=== PATIENT | male | born 1955 | race Caucasian/White ===

== ENCOUNTER 2023-04-19 11:27 | Outpatient (OUT) | payer MEDICARE, SELFPAY ==
[2023-04-19 11:57] LABS: Basophils Percent Auto 0.5 % (0.2-2.0); Eosinophils Absolute Auto 0.2 10^3/uL (0.0-0.7); Hematocrit 42.5 % (42.0-54.0); Hemoglobin 14.2 g/dL (14.0-18.0); Immature Granulocytes Abs Auto 0.02 10^3/uL (0.00-0.03); Immature Granulocytes Pct Auto 0.4 % (0.0-0.5); Lymphocytes Absolute Auto 1.9 10^3/uL (1.2-3.8); Lymphocytes Percent Auto 33.3 % (20.5-60.0); Mean Corpuscular HGB Conc 33.4 g/dL (29.9-35.2); Mean Corpuscular Hemoglobin 30.7 pg (25.9-34.0); Monocytes Absolute Auto 0.6 10^3/uL (0.3-0.8); Monocytes Percent Auto 9.6 % (1.7-12.0); Neutrophils Percent Auto 52.2 % (43.0-75.0); Platelet Count 231 10^3/uL (150-450); Red Blood Count 4.62 10^6/uL (4.70-6.10); Red Cell Distribution Width 12.4 % (11.0-15.0); White Blood Count 5.7 10^3/uL (4.0-11.0)
[2023-04-19 14:14] LABS: Prostate Specific Antigen Scrn 2.32 ng/mL (<=4.00)
[2023-04-19 14:36] LABS: Anion Gap 11.2; BUN Creatinine Ratio 24.4; Calcium 8.9 mg/dL (8.5-10.1); Carbon Dioxide 28.2 mmol/L (21.0-32.0); Chloride 105 mmol/L (98-107); Chol HDL Ratio 4.4; Cholesterol 235 mg/dL (<=200); Estimated GFR (African America >60 (>=60); Estimated GFR (Non-African Ame >60 (>=60); Glucose 101 mg/dL (74-106); HDL Cholesterol 54 mg/dL (40-60); Potassium 4.4 mmol/L (3.5-5.1); Sodium 140 mmol/L (136-145); Triglycerides 141 mg/dL (<=150); VLDL CHOLESTEROL 28.2 mg/dL
== END 2023-04-19 11:28 | disposition home or self-care (01) ==
LOC: LAB 11:31
PROVIDERS: PCP Internal Medicine; Visit Provider Internal Medicine
DX: Z00.00 Encounter for general adult medical examination without abnormal findings (principal); E78.01 Familial hypercholesterolemia; I10 Essential (primary) hypertension; Z12.5 Encounter for screening for malignant neoplasm of prostate; Z79.899 Other long term (current) drug therapy
CPT/HCPCS: 36415; 80048; 80061; 85025; G0103

== ENCOUNTER 2024-05-03 07:05 | Outpatient (OUT) | payer MEDICARE, SELFPAY ==
[2024-05-03 07:23] LABS: Basophils Absolute Auto 0.1 10^3/uL (0.0-0.1); Basophils Percent Auto 0.8 % (0.2-2.0); Eosinophils Absolute Auto 0.4 10^3/uL (0.0-0.7); Eosinophils Percent Auto 6.2 % (0.9-7.0); Hematocrit 42.6 % (42.0-54.0); Hemoglobin 14.3 g/dL (14.0-18.0); Immature Granulocytes Abs Auto 0.02 10^3/uL (0.00-0.03); Immature Granulocytes Pct Auto 0.3 % (0.0-0.5); Lymphocytes Absolute Auto 2.2 10^3/uL (1.2-3.8); Lymphocytes Percent Auto 35.9 % (20.5-60.0); Mean Corpuscular HGB Conc 33.6 g/dL (29.9-35.2); Mean Corpuscular Hemoglobin 31.3 pg (25.9-34.0); Mean Corpuscular Volume 93.2 fL (80.0-94.0); Mean Platelet Volume 9.2 fL (9.5-13.5); Monocytes Absolute Auto 0.5 10^3/uL (0.3-0.8); Monocytes Percent Auto 8.5 % (1.7-12.0); Neutrophils Percent Auto 48.3 % (43.0-75.0); Platelet Count 247 10^3/uL (150-450); Red Blood Count 4.57 10^6/uL (4.70-6.10); Red Cell Distribution Width 12.2 % (11.0-15.0); White Blood Count 6.2 10^3/uL (4.0-11.0)
[2024-05-03 08:04] LABS: Alanine Aminotransferase 43 U/L (16-63); Albumin Level 3.4 g/dL (3.4-5.0); Alkaline Phosphatase 75 U/L (46-116); Anion Gap 12.9; Aspartate Amino Transferase 22 U/L (15-37); BUN Creatinine Ratio 26.1; Calcium 8.7 mg/dL (8.5-10.1); Carbon Dioxide 26.8 mmol/L (21.0-32.0); Chloride 105 mmol/L (98-107); Chol HDL Ratio 3.3; Cholesterol 174 mg/dL (<=200); Estimated GFR (African America >60 (>=60); Estimated GFR (Non-African Ame >60 (>=60); Globulin 3.4 g/dL; Glucose 103 mg/dL (74-106); HDL Cholesterol 53 mg/dL (40-60); LDL Cholesterol Calculated 106.6 mg/dL; Potassium 4.7 mmol/L (3.5-5.1); Sodium 140 mmol/L (136-145); Total Protein 6.8 g/dL (6.4-8.2); Triglycerides 72 mg/dL (<=150); VLDL CHOLESTEROL 14.4 mg/dL
[2024-05-03 08:13] LABS: Prostate Specific Antigen Scrn 0.75 ng/mL (<=4.00)
== END 2024-05-03 07:06 | disposition home or self-care (01) ==
LOC: LAB 07:05
PROVIDERS: PCP Internal Medicine; Visit Provider Internal Medicine
DX: E78.00 Pure hypercholesterolemia, unspecified (principal); I10 Essential (primary) hypertension; Z12.5 Encounter for screening for malignant neoplasm of prostate
CPT/HCPCS: 36415; 80053; 80061; 85025; G0103

== ENCOUNTER 2025-07-07 15:29 | Outpatient (OUT) | payer MEDICARE, SELFPAY ==
--- NOTE | 2025-07-07 15:40 | XR_ITS ---
[place] [address] Patient Name: RE GOEL MRN: [id number] date: 1955 Sex: M Assigned Patient Location: [facility] Current Patient Location: [facility] Accession/Order Number: [id number] Exam Date: 07/07/2025 16:10 Report Date: 07/07/2025 22:08 At the request of: SELENA TREJO DO Procedure: XR lumbar spine 2-3V 2 views Lumbar Spine HISTORY: Low back pain for 3 weeks. COMPARISON: None POSTSURGICAL CHANGES: None BONY ALIGNMENT: Straightening of lumbar lordosis mild scoliosis HYPERMOBILITY:No bending imaging. LISTHESIS:Multilevel mild degenerative listhesis FRACTURE: None DEGENERATIVE CHANGES: Extensive multilevel spondylosis and facet degeneration SOFT TISSUES: Unremarkable BONY MINERALIZATION:Adequate XR/XR lumbar spine 2-3V IMPRESSION: Extensive multilevel degeneration. Mild scoliosis. No acute fracture. Impression dictated by: Sushil Cardenas M.D. 07/07/2025 10:08 PM Dictation Location: [employer] Electronically authenticated by: [id number] Y Date: 07/07/2025 22:08
== END 2025-07-07 15:30 | disposition home or self-care (01) ==
LOC: LAB 15:32 → RAD 15:35
PROVIDERS: PCP Internal Medicine; Visit Provider Internal Medicine
DX: M54.50 Low back pain, unspecified (principal); M47.816 Spondylosis without myelopathy or radiculopathy, lumbar region; M51.369 Other intervertebral disc degeneration, lumbar region without mention of lumbar back pain or lower extremity pain
CPT/HCPCS: 72100

== ENCOUNTER 2025-08-07 12:27 | Outpatient (OUT) | payer MEDICARE, SELFPAY ==
--- OUTSIDE RECORDS SUMMARY | 2025-08-04 11:59 | XMS_ITS | Continuity of Care Document ---
Author Organization [facility] Address [address] [place] [address] Phone Care Team Providers Care Early Childhood Name Role Phone ReymundoOvidio Primary Care Provider [phone] Ovidio Dwyer DO Attending Provider [phone] Care Teams Patient Care Team Team Status: Active Member Role/Relationship Status Dates Ovidio Dwyer DO Primary Care Provider Active Visit Care Team Team Status: Inactive Member Role/Relationship Status Dates Ovidio Dwyer DO Primary Care Provider Active Start: July 07, 2025 End: July 07lizzie Dwyer DOAttmiriam ProviderActiveStart: July 07, 2025 End: July 07, 2025 Patient Care Team Team Status: Inactive Member Role/Relationship Status Dates Ovidio Dwyer DO Primary Care Provider Active Start: August 04, 2025 End: August 04Adriana Lui ProviderActiveStart: August 04, 2025 End: August 04, 2025 Chief Complaint and Reason for Visit Chief Complaint Admit Date back pain July 07, 2025 2:07pm discuss getting MRI August 04, 2025 2 :29pm Reason for Visit Admit Date Low back pain July 07, 2025 2:07pm Lumbar spondylosis July 07, 2025 2:07pm Low back pain August 04, 2025 2 :29pm Lumbosacral spondylosis with radiculopat hy August 04, 2025 2:29pm Allergies, Adverse Reactions, Alerts Allergen Type Severity Reaction Last Updated Verified Status No Known Allergies Allergy Unknown August 04, 2025 2:39pmYesActive Social History Smoking Status Unknown if ever smoked Observation Status Observation Response Date of Response Legal Sex Male (finding) Sex Assigned At [facility] 1954 Family History Relationship Condition Age at Onset Recorded Date/T dominick father Family history of lung cancer Unknown Malignant neoplasmUnknownfamily memberMalignant neoplasmUnknownmotherMalignant neoplasm of breastUnknownMalignant neoplasmUnknown Problems Active Problems Problem Diagnosis/Recorded Date Onset Date Status C omments Lumbosacral spondylosis with radiculopathy August 04, 2025 3:19pm Unknown Active Medicare annual wellness visit, subsequentJuly 2024 7:22amUnknownActive Screening PSA (prostate specific antigen)May 03, 2025 7:23amUnknownActive 0.749 - 8/2024Low back painSeptember 2024 3:09pmUnknownActive HypercholesterolemiaJuly 2023 7:14amUnknownActiveOverweightJuly 2023 11:52amUnknownActiveHypertensionJuly 2023 7:14amUnknownActiveLumbar spondylosisJuly 2023 7:14amUnknownActive Medications Medication Status Dose Units Route Directions Qty Days Refills S tart Date Stop Date End Date Reason(s) Instructions Adherence Ramipril 5 mg capsule Discontinued 0 .ROUTE.NAWGEEQ238Ifol 2023 9:36amDecember 2023 9:57pmTAKE 1 CAPSULE BY MOUTH EVERY DAY FOR 90 DAYSAtorvastatin 40 mg tabletDiscontinued0.ROUTE .SZSMLGL619Xcjuqm 2023 11:49amJuly 2024 8:28amTAKE 1 TABLET BY MOUTH ONCE A DAY IN THE EVENING X30 DAYS 90Lisinopril 5 mg aaykljVutrqzzxqrky5YYXU Ibcuf22992Omycrxoe 2023 1:00amDecember 2023 4:18pmLisinopril 5 mg aasxpwFlqrdn0YDPPUflam65045Mhykpqte 2023 4:18pmComplies with drug therapy Atorvastatin 40 mg tabletActive0.ROUTE.YCIXXDE784Hqup 2024 8:28amTAKE 1 TABLET BY MOUTH ONCE A DAY IN THE EVENING X30 DAYS 90Complies with drug therapy Baclofen 20 mg xsrcwkGpblcjsypscb60RYGYXlenj at hxytoqs80921Ikxslzlxq 2024 12:00amOctober 2024 2:47pmPrednisone 20 mg kuaxcxHxnwfx34YJWFYy Piqloije91 60July 07, 2025 12:00am1 tab tid w/ food x 2 days, then bid w/ food x 2 days, then qd w/ food x 2 daysComplies with drug therapyAtorvastatin 40 mg zgiafbBiqsyynkqokb88FLMIRyyqb eveningJuly 2023 12:00amAugust 2023 11:49amRamipril 5 mg gratncvJpruvqiguabg5XOHFZxwhnKuxt 2023 12:00amJuly 2023 9:36am Immunizations Immunization Event Date Not Given Reason Dose Number Retort Load Expediter Lot Number Reason(s) Given Vaccine Information Statement (VIS) Detail Administration Location COVID-19 mRNA-1273 (Moderna) December 02, 2020 COVID-19 mRNA-1273 (Moderna)December 29OVID-19 mRNA-1273 (Moderna)August 03Tap, unspecifiedSept2016 Vital Signs Vital Reading Result Reference Range Collection Date/Time Height 72 [in_i] July 07, 2025 2:20qmLetjbv86.79 kgpt2024 2:40pmHeart Rate62 /iml19-604OriflssqnJuly 07, 2025 2:40pmRespiratory rate12 /vgn70-32QbuxsvnggJuly 07, 2025 2:40pmBP Ecwvzptp270 mm[Hg]100-140pt2024 2:40pmBP Gnfaoxrkf11 mm[Hg]60-100pt2024 2:40pmBMI (Body Mass Index)27.4 kg/s3UpchtgmyfJuly 07, 2025 2:87elRybvvh24 [in_i]August 04, 2025 2:41pmWeight 91.79 kgOct2024 2:41pmBody Uogxoxdqujp97.2 [degF]97.6-99.0Octblue[facility] 2024 2:41pmHeart Rate68 /huj59-045Qheosyb 28th, 2025 2:41pmOxygen saturation by Pulse iymhxkjx93 %95-100Octbluegrass community hospital 2024 2:41pmBP Qtmcmuhx661 mm[Hg]100-140October 2024 2:41pmBP Gsjwbhabg60 mm[Hg]60-100October 2024 2:41pmBMI (Body Mass Index)27.4 kg/v6Omzsmmt 2024 2:41pm Advance Directives Advance Directive Response Recorded Date/ Time Advance Directives No May 02 11:28am Insurance Providers Guarantor Steven Gill Address [address] [address]Contact Info.Home Phone: Payer Group Member ID Coverage Type Subscriber Relationship to Subscriber Effective Date Expiration Date Medicare [id number] Weber Id: [id number] [address] [id number] Home Phone: selfAARP Medicare Advantage PFFS [id number] Weber Id: [id number] [id number] Home Phone: self Encounters Encounter Location(s) Arrival/Admit Date Discharge/Departure Date Discharge/Departure Disposition Provider(s) Departed Physician/ Provider Office Visit -[facility] July 07, 2025 2:07pm July 07, 2025 3:19pm Discharged to home care or self care (routine discharge) Ovidio Dwyer DO Departed Physician/ Provider Office Visit -[facility] August 04, 2025 2:29pm August 04, 2025 3:57pm Discharged to home care or self care (routine discharge) Ovidio Dwyer DO Recent Diagnosis Onset Date Admit Date Low back pain Unknown July 07, 2025 2:07pm Lumbar spondylosis Unknown June 2:07pm Low back pain Unknown August 04 2:29pm Lumbosacral spondylosis with radiculopathy Unkno wn August 04, 2025 2:29pm Assessments Diagnosis Onset Date Resolution Status Admit Date Low back pain acuteSeptember 2024 2:07pmLumbar spondylosisacuteSeptember 2024 2:07pmLow back painacuteOctober 2024 2:29pmLumbosacral spondylosis with radiculopathyacuteOctober 2024 2:29pm Plan of Treatment Author Ovidio [facility] HospitalAuthoredSeptember 2024 3:16pmI have instructed this patient to avoid bending, twisting or lifting. I have also instructed on use of intermittent heat and ice as needed. They may schedule a massage or gentle manipulation. I instructed them on the safe use of Tylenol, Lidocaine and stretching exercises. I informed them of alternative modes of treatment for severe pain, which may include referral to physical therapy or pain management. Instructed on ice/heat and Tylenol Add Prednisone over the next 6 days. Add Muscle relaxant at HS Reviewed low back ROM and stretching exercises (handouts give to patient) Refer for XR and PT No improvement, MRI lumbar spine Author Ovidio [facility] HospitalAut[facility] 2024 8:21amInstructed on ice/heat and Tylenol Add Prednisone over the next 6 days. Add Muscle relaxant at HS Reviewed low back ROM and stretching exercises (handouts give to patient) Refer for XR and PT No improvement, MRI lumbar spine I have instructed this patient to avoid bending, twisting or lifting. I have also instructed on use of intermittent heat and ice as needed. They may schedule a massage or gentle manipulation. I instructed them on the safe use of Tylenol, Lidocaine and stretching exercises. I informed them of alternative modes of treatment for severe pain, which may include referral to physical therapy or pain management. Future Tests Future scheduled test information is unavailable Pending Tests Test Name Ordered Date Scheduled Date XR lumbar spine 2-3V* July 07, 2025 3:08p m MR lumbar spine wo conOctober 2024 3:17pm Future Visits Future appointment information is unavailable Future Procedures Future procedure information is unavailable Future Medications Future medication information is unavailable Patient Instructions Instruction Admit Date Low back pain in adults July 07, 2025 2:07pm
--- OUTSIDE RECORDS SUMMARY | 2025-08-07 12:34 | XMS_ITS | Clinical Summary ---
Author Organization [facility] Address [address] [place], [place] [address] Care Team Providers Care Analytics Analyst Name Role Phone Zayda Harper Primary Care Provider [phone] Allergies No known active allergies Medications MedicationSigDispense QuantityRefillsLast FilledStart DateEnd DateStatus ramipril (ALTACE) 5 mg ORAL Cap Take one(1) tablet daily.ctive Active Problems ProblemNoted DateDiagnosed DateEssential hypertension, benignOther forms of migraine Overview (03/21/2007): vestibular Diverticulosis of colon (without mention of hemorrhage) Overview (03/21/2007): diverticulitis Other and unspecified disc disorder of lumbar region Overview (03/21/2007): low back pain Family History Medical HistoryRelationCommentsCancerFatherlung cancer, brain tumor?Relation StatusCommentsFather Social History Tobacco UseTypesPacks/DayYears UsedDateSmoking Tobacco: FormerCigarettes0.510 10/08/1979 - 10/08/1989Alcohol UseStandard Drinks/WeekCommentsYes0 (1 standard drink = 0.6 oz pure alcohol)6 per yearSex and Gender InformationValueDate RecordedSex Assigned at BirthNot on fileLegal PwfUngl31/02/2012 8:07 AM EST Gender IdentityNot on fileSexual OrientationNot on file Last Filed Vital Signs Vital SignReadingTime TakenCommentsBlood Bjfsntzj265/12831 6:54 AM EDT Shpqy3347 6:54 AM XDUPgbjjnxrurl99.7 ??C (96.3 ??F)04/04/2007 6:54 AM EDTRespiratory Tuec985604/04/2007 6:54 AM EDTOxygen Oqpmlrpncf92%04/04/2007 6:54 AM EDTInhaled Oxygen Concentration--Oxhdwg83.6 kg (195 lb 6.4 oz)05/16/2007 2:34 PM MPJAyelkt713.4 cm (6' 1 )05/16/2007 2:34 PM EDTBody Mass Index25.78005/16/2007 2:34 PM EDT Plan of Treatment Health MaintenanceDue DateLast DoneCommentsAbdominal Aortic Aneurysm Screening 4Anxiety Qecrtsefl29/16/1972Depression Yqjecpbwu55/16/1972Hepatitis C Ndbfyuylg61/16/1972DTaP,Tdap,Td Vaccine (1 - Tdap)1973Lipid Screening 1989CT Hgtrfvbjqbdc78/16/1999Cologuard (FIT-DNA)1999Colonoscopy 1999Colorectal Cancer Hmtwbfvvf64/16/1999Fecal Occult Blood1999 Bisbbhxuvtsgt89/16/1999Pneumococcal Vaccine: 50+ (1 of 1 - PCV)2004 Shingrix Vaccine (1 of 2)2004Diabetes Pngoscmnk78, 04/01/2007, 03/21/2007dvance Directive Vkwgnpeflu10/01/2025ovid-19 Vaccine ( - season)2025Influenza Vaccine (#1)2025RSV Vaccine (1 - 1- dose 75+ series)2029 Procedures Procedure NamePriorityDate/TimeAssociated DiagnosisCommentsBASIC METABOLIC PANEL Pwjzcch8704/02/2007 10:53 PM EDT from Last 3 Months or Most Recently Relevant to Health Maintenance Results * (ABNORMAL) BASIC METABOLIC PNL (04/02/2007 10:53 PM EDT)ComponentValueRef RangeTest MethodAnalysis TimePerformed AtPathologist KxjeeciyiZolyzmt875(H)65 - 100 mg/dLCLEVELAND CLINIC MAIN LABORATORYBUN5(L)10 - 25 mg/dLMER[facility]ALTH [facility] LABORATORYCreatinine0.80.7 - 1.4 mg/dLMERCY HEALTH WEST [facility] EEVBTJEQPJKyyjmm698740 - 146 mmol/LCPARKVIEW HEALTH LABORATORYPotassium 4.83.5 - 5.0 mmol/LCOHIOHEALTH MAIN BQUIAMZUPQXyuookwy11475 - 110 mmol/L [facility] CKAGHDXDUPYV02443 - 32 mmol/LCPARKVIEW HEALTH LABORATORYAnion Gap60 - 15 mmol/LCPARKVIEW HEALTH LABORATORYCalcium8.88.5 - 10.5 mg/dLMERCY HEALTH WEST [facility]ITAL LABORATORYSpecimen (Source)Anatomical Location / LateralityCollection Method / VolumeCollection TimeReceived Time Blood specimen (specimen)BLOOD SPECIMEN / Azutifs1004/02/2007 10:53 PM EDT Narrative Authorizing ProviderResult TypeResult StatusJon D VogelLABORATORYFinal Result Performing OrganizationAddressCity/State/ZIP CodePhone Number [facility] [address] [place] [address] from Last 3 Months or Most Recently Relevant to Health Maintenance Insurance * Guarantor: TAYLOR GOEL TypeRelation to PatientDate of BirthPhone Billing AddressPersonal/DonctuVzzm1955 [phone] (Work) [address] [id number] MemberSubscriberPlan / Payer (Effective 2019-Present)Name:Steven Goel Relation to Subscriber:SpouseName:TIFFANIE GOEL Date of :1959 (Home) [phone] (Work) Address: [address] [id number] Payer ID:Not on file Group ID:[id number] Type:PPO Address: [address] [place] [address] * Guarantor: TAYLOR GOEL TypeRelation to PatientDate of BirthPhone Billing AddressSelf [id number] 1955 [phone] (Work) [address] [place] [phone] Care Teams Team MemberRelationshipSpecialtyStart DateEnd Date Alt-Riddhi, Zayda Hdz [address] [place] [address] PCP - General01/08/07
--- OUTSIDE RECORDS SUMMARY | 2025-08-07 12:34 | XMS_ITS | Clinical Summary ---
Author Organization [facility] Address [address], [address] [place] [address] Care Team Providers Care Lay Out Inspector Name Role Phone Ovidio Dwyer DO Primary Care Provider [phone] Allergies No known active allergies Medications MedicationSigDispense QuantityRefillsLast FilledStart DateEnd DateStatus therapeutic multivitamin-minerals (THERAGRAN-M) tablet Take 1 tablet by mouth daily.Active [place]-3 Fatty Acids (FISH OIL) 1000 MG CAPS Take 1,000 mg by mouth daily.Active ramipril (ALTACE) 5 MG tablet Take 5 mg by mouth daily.Active Misc Natural Products (OSTEO BI-FLEX ADV DOUBLE ST) TABS Take by mouth. 1500mg with 400iu vitamin D. 100mg 5 loxinActive Active Problems ProblemNoted DateDiagnosed DateAbdominal pain04/08/2013bnormal CT of the dubudnl5604/08/2013 Family History Medical HistoryRelationNameCommentsLung CancerFatherEmphysemaMotherRelationName StatusCommentsFatherDeceasedMotherAlive Social History Tobacco UseTypesPacks/DayYears UsedDateSmoking Tobacco: FormerSmokeless Tobacco: Never Comments:Pt smoked One pack per week at his most. Alcohol UseStandard Drinks/WeekCommentsYes0 (1 standard drink = 0.6 oz pure alcohol)OccasionallySex and Gender InformationValueDate RecordedSex Assigned at BirthNot on fileLegal UczXoxx2811/17/2012 1:18 PM ESTGender IdentityNot on file Sexual OrientationNot on file Last Filed Vital Signs Vital SignReadingTime TakenCommentsBlood Kggqjfuh575/8409 3:00 PM EDT Luiwe0454 3:00 PM NKMWdwarffygdh27.4 ??C (97.6 ??F)07/03/2013 3:00 PM EDTRespiratory Uuyu220007/03/2013 3:00 PM EDTOxygen Kxcnuslcda01%04/22/2013 8:41 AM EDTInhaled Oxygen Concentration--Qqsyem78 kg (194 lb)07/03/2013 3:00 PM EDT Occzwi872.9 cm (6')07/03/2013 3:00 PM EDTBody Mass Index26.31007/03/2013 3:00 PM EDT Plan of Treatment Not on file Care Teams Team MemberRelationshipSpecialtyStart DateEnd Date Ovidio Dwyer DO [facility] - General04/08/13
--- OUTSIDE RECORDS SUMMARY | 2025-08-07 12:34 | XMS_ITS | CCD ---
Author Organization [facility] Care Team Providers Care Plating Tank Operator Name Role Phone REYMUNDO, DR WALTERS Primary Care Unavailable REQUEST, DR EM LISTED Attending Unavaila ble REQUEST, DR EM LISTED Admitting Unavaila ble REQUEST, DR EM LISTED Consulting Unavaila ble ROSS, TOBIAS Attending Unavailable ROSS, TOBIAS Admitting Unavailable ROSS, TOBIAS Consulting Unavailable BALL, DR WALTERS Primary Care Unavailable HIGHLANDER, THERESA Attending Unavailable HIGHLANDER, THERESA Admitting Unavailable ZIEBER, DR SINGH Olivia Consulting Unavailable BALL, DR WALTERS Primary Care Unavailable HIGHLANDER, THERESA Consulting Unavailable BALL, DR WALTERS Consulting Unavailable BALL, DR WALTERS Attending Unavailable BALL, DR WALTERS Admitting Unavailable BALL, DR WALTERS Primary Care Unavailable Ovidio Dwyer Unavailable Brown VALENZUELA, Marcos Wills Attending Unavailab le Reymundo YONUG, Ovidio [place] Primary [facility] Unavail able Rosmery VALENZUELA, Carter Bailey Attending Unavailable Melania LEASING REPRESENTATIVE-MACHINE FASTENER, Arely Wheeler Attending U navailable Reymundo YOUNG, Ovidio [place] Primary Care Unavail able Tony VALENZUELA, Taurus Paulino Attending Unavailable Unavailable Primary Care Provider Unavailabl MARISOL Beasley Attending Unavailable MARISOL AL Attending Unavailable MARISOL AL Attending Unavailable MARISOL AL Attending Unavailable Ovidio Dwyer DO Primary Care Provider Ovidio Dwyer DO Attending Provider Ovidio Dwyer DO Primary Care Provider Ovidio Dwyer DO Attending Provider Allergies Allergy ClassificationReported Allergen(s)Allergy TypeDate of OnsetReaction(s) Facility (3 sources)patient allergy list reviewed by nurse or physiciaPropensity to adverse wvriscdkn35-20-2226Jcargvu:[employer] Other (3 sources)Allergies ReconciledPropensity to adverse reactionsSouthlake Center For Mental HealthRetewi Other (1 source)No Known Medication Allergies; Translations: [No Known Medication Allergies]Propensity to adverse reactions to drug (disorder)[facility] Repository Medications Current Medications MedicationDrug Class(es)DatesSig (Normalized)Sig (Original)atorvastatin 40 mg oral tablet (20 sources)HMG-CoA Reductase InhibitorStart: 62-13-1831wsqviluvqodm (Lipitor) 40 MG tablet 11/08/2024 ActiveStart: 05-11-2024 End: 67-61-3670blbk 1 tablet by mouth once daily in the eveningAtorvastatin 40 mg tablet Active 0 .ROUTE .COMPLEX 90 April 20, 2025 8:28am TAKE 1 TABLET BY MOUTH ONCE A DAY IN THE EVENING X30 DAYS 90 Complies with drug therapyStart: 04-14-2024 End: 07-95-0343imxp 1 tablet by mouth once daily in the eveningAtorvastatin 40 mg tablet Discontinued 40 MG PO Every evening April 14, 2024 12:00am May 11, 2024 11:49amtake 1 tablet by mouth once daily in the eveningAtorvastatin Calcium 40 MG 1 tablet Orally Once a day, in evening for 30 days Activelisinopril 5 mg oral tablet (17 sources)Angiotensin Converting Enzyme InhibitorStart: 09-23-2024 End: 36-01-5339cgyb 1 tablet by mouth once dailyLisinopril 5 mg tablet Active 5 MG PO Daily 90 90 September 24, 2024 4:18pm Complies with drug therapy predniSONE 20 mg oral tablet (2 sources)Start: 91-84-9577Cbegphbaye 20 mg tablet Active 20 MG PO As Directed 12 6 0 July 07, 2025 12:00am 1 tab tid w/ food x 2 days, then bid w/ food x 2 days, then qd w/ food x 2 days Complies with drug therapy Completed/Discontinued Medications MedicationDrug Class(es)DatesSig (Normalized)Sig (Original)baclofen 20 mg oral tablet (2 sources)gamma-Aminobutyric Acid-ergic AgonistStart: 07-07-2025 End: 56-45-3733nipx 1 tablet by mouth once daily at bedtimeBaclofen 20 mg tablet Discontinued 20 MG PO Daily at bedtime 21 0 July 07, 2025 12:00am Oc tober 2024 2:47pmramipril 5 mg oral capsule (13 sources)Angiotensin Converting Enzyme InhibitorStart: 04-14-2024 End: 96-41-4624nyzx 1 capsule by mouth once dailyRamipril 5 mg capsule Discontinued 0 .ROUTE .COMPLEX 90 3 April 14, 2024 9:36am September 23, 2024 9:57pm TAKE 1 CAPSULE BY MOUTH EVERY DAY FOR 90 DAYSStart: 04-14-2024 End: 88-52-9569dhel 1 capsule by mouth once dailyRamipril 5 mg capsule Discontinued 5 MG PO Daily April 14, 2024 12:00am April 14, 2024 9:36amtake 1 capsule by mouth every twenty-four hoursRamipril 5 MG 1 capsule Orally Once a day for 90 days Active Problems Active Problems Problem ClassificationProblemDateDocumented DateEpisodic/ChronicAcquired foot deformities (3 sources)Acquired hallux rigidus; Translations: [Hallux rigidus, left foot] ChronicDisorders of lipid metabolism (20 sources)Pure hypercholesterolemia; Translations: [Familial hypercholesterolemia]Onset: 44-67-1376JfkkgevNqxueehnu hypertension (18 sources)Essential hypertension; Translations: [Essential (primary) hypertension]ChronicHyperplasia of prostate (14 sources)Lower urinary tract symptoms due to benign prostatic hypertrophy; Translations: [Benign prostatic hyperplasia with lower urinary tract symptoms] Onset: 60-19-9813GooplibGhtyt acquired deformities (5 sources)Joint contracture of the ankle and/or foot; Translations: [Contracture, right ankle]ChronicOther aftercare (1 source)Other mica parts sprayer (current) drug therapyEpisodicOther and unspecified benign neoplasm (2 sources)Melanocytic nevus of trunk; Translations: [Melanocytic nevi of trunk] 24-25-5380UkrxcbgoApiil and unspecified benign neoplasm (2 sources)Dermatofibroma of left lower limb; Translations: [Other benign neoplasm of skin of left lower limb,including hip]47-64-4904YstbkaixKiinb connective tissue disease (5 sources)Calcaneal spur; Translations: [Calcaneal spur, right foot]Episodic Other connective tissue disease (6 sources)Achilles bursitis; Translations: [Achilles tendinitis, left leg] Resolved: 97-69-1876KpitjzewMslyf connective tissue disease (3 sources)Calcaneal spur of right foot; Translations: [Calcaneal spur, right foot]EpisodicOther connective tissue disease (3 sources)Pain in right foot; Translations: [Pain in right foot]EpisodicOther ear and sense organ disorders (8 sources)Sensorineural hearing loss; Translations: [Unspecified sensorineural hearing loss]ChronicOther ear and sense organ disorders (3 sources)Unilateral sensory hearing loss; Translations: [Sensorineural hearing loss, unilateral]Onset: 12-20-6602JjvtvclXdzug ear and sense organ disorders (3 sources)Conductive hearing loss; Translations: [Unspecified conductive hearing loss]Onset: 29-19-2585WgrugxpExgpr non-traumatic joint disorders (3 sources)Arthralgia of the ankle and/or foot; Translations: [Pain in right ankle and joints of right foot]EpisodicOther nutritional; endocrine; and metabolic disorders (9 sources)Overweight; Translations: [Overweight]01-87-3586DdxcdlpdGywjb nutritional; endocrine; and metabolic disorders (1 source)Overweight; Translations: [Overweight]94-79-4493BjzbtjnhWngdv screening for suspected conditions (not mental disorders or infectious disease) (14 sources)Encounter for screening for malignant neoplasm of prostate; Translations: [Patient encounter status]Onset: 40-66-8604OcixorthNwlxytb on above:0.749 - 05/2025Other skin disorders (2 sources)Actinic keratosis; Translations: [Actinic keratosis]12-08-2024 EpisodicOther skin disorders (2 sources)Seborrheic keratosis; Translations: [Other seborrheic keratosis] 01-94-7343VpqscwczDppgu upper respiratory infections (6 sources)Acute maxillary sinusitis; Translations: [Acute maxillary sinusitis, unspecified]Onset: 98-87-1751RelqzgohBkivsnqr codes; unclassified (8 sources)Pain; Translations: [Pain, unspecified]46-58-0396FbdbqdioZruskkigheh; intervertebral disc disorders; other back problems (20 sources)Lumbar spondylosis; Translations: [Spondylosis without myelopathy or radiculopathy, lumbar region]ChronicSpondylosis; intervertebral disc disorders; other back problems (5 sources)Low back pain; Translations: [Low back pain]14-77-4113Wlffgcsu Substance-related disorders (3 sources)Tobacco user; Translations: [Nicotine dependence, cigarettes, in remission]ChronicUnclassified (3 sources)Exposure to acute respiratory syndrome coronavirus 2; Translations: [Contact with and (suspected) exposure to COVID-19]Viral infection (8 sources)Verruca vulgaris; Translations: [Other viral warts]51-14-4573Uqsswdni Past or Other Problems Problem ClassificationProblemDateDocumented DateEpisodic/ChronicAcute bronchitis (3 sources)Acute bronchitis; Translations: [Acute bronchitis, unspecified]Onset: 77-85-5538KnmyuhvlRaksfxpkc infection; unspecified site (3 sources)Bacterial infectious disease; Translations: [Bacterial infection, unspecified, in conditions classified elsewhere and of unspecified site]Onset: 08-71-7722RvrcdguhHsipbiyark associated with dizziness or vertigo (3 sources)Benign paroxysmal positional vertigo; Translations: [Benign paroxysmal positional vertigo]Onset: 25-32-7116LcqqyowoQxmijfoewrjwe and screening for infectious disease (4 sources)Encounter for immunization; Translations: [ENCOUNTER FOR IMMUNIZATION]Onset: 84-18-0393OgebcswfOcsgjwd and fatigue (3 sources)Malaise and fatigue; Translations: [Other malaise and fatigue]Onset: 26-93-6066JdxlhlmyKmgxd connective tissue disease (1 source)Pain in right foot; Translations: [PAIN IN RIGHT FOOT]Onset: 70-83-2020KvnpesxxDirrt gastrointestinal disorders (3 sources)Flatulence, eructation and gas pain; Translations: [Abdominal distension (gaseous)]Onset: 45-17-8876ZfytcvdjKmqry non-traumatic joint disorders (4 sources)Pain in right ankle and joints of right foot; Translations: [PAIN IN RIGHT ANKLE]Onset: 89-58-5332NktdcefaFmxqp nutritional; endocrine; and metabolic disorders (9 sources)Body mass index 25-29 - overweight; Translations: [Body mass index 29.0-29.9, adult]Onset: 39-33-4951ZjgtvuovEcdnqyxq codes; unclassified (3 sources)Postoperative state; Translations: [Other postprocedural status] Onset: 80-46-0071RhyxmgtsQmuxjkvmb and history of mental health and substance abuse codes (3 sources)History of tobacco use; Translations: [Personal history of tobacco use, presenting hazards to health]Onset: 10-37-0996WqgphnycFtbpvyg and strains (3 sources)Neck sprain; Translations: [Strain of muscle, fascia and tendon at neck level, initial encounter] Resolved: 67-20-8045Efovvkuo Results Test NameValueInterpretationReference RangeFacilityNo Panel Informationon [id number] HealthcareNo Panel Informationon [id number] HealthcareNo Panel Informationon 26-56-5858KFOZ HealthcareNo Panel Informationon 12-08-2024 [facility] HealthcareProvider Letteron [id number] Letter Ovidio Meléndez [address] [place] [address] Re: Steven Michelle Date of Visit: 06/04/2023 Dear Ovidio Dwyer, Attached you will find the office visit and/or procedure documentation for Steven Michelle. Let me know if you have any questions or concerns. Sincerely, Faith Richardson RN C C Providers: The following document(s) were included in the letter: June 04, 2023 07:28:00 EDT - (06/04/2023) Colonoscopy Procedure NoteNormal [facility] HospitalGastro[facility]ology Consultationon 06-04-2023 Gastroenterology ConsultationThis is a 68-year-old man who presented to the endoscopy unit for colorectal cancer screening. Patient gives pertinent history of segmental colectomy for a prior episode of diverticulitis. Denies any nausea, vomiting, odynophagia/dysphagia, early satiety, unintentional weight loss, hematemesis, melena or hematochezia. Regular bowel movements. Review of Systems Constitutional : No weight loss, fever, chills, weakness or fatigue. HEENT: Eyes: No visual loss, blurred vision, double vision or yellow sclerae. Ears, Nose, Throat: No hearing loss, sneezing, congestion, runny nose or sore throat. Skin: No rash or itching. Cardiovascular: No chest pain, chest pressure or chest discomfort. No palpitations or edema. Respiratory: No shortness of breath, cough or sputum. Neurological: No headache, dizziness, syncope, paralysis, ataxia, numbness or tingling in the extremities. No change in bowel or bladder control. Musculoskeletal : No muscle, back pain, joint pain or stiffness. Psychiatric: Cooperative, appropriate mood and affect. Physical Examination Patient is hemodynamically stable and afebrile. 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 Patient understood and consented for procedure. Electronically signed by Taurus Jimenez MD 06/04/23 07:25 [facility] CenterOperative Reporton [id number] ReportMissing Attachment [id number] Can be viewed in source system Missing Attachment [id number] Can be viewed in source system Missing Attachment [id number] Can be viewed in source system Missing Attachment [id number] Can be viewed in source system Missing Attachment [id number] Can be viewed in source system Missing Attachment [id number] Can be viewed in source system Missing Attachment [id number] Can be viewed in source system Missing Attachment [id number] Can be viewed in source system Missing Attachment [id number] Can be viewed in source system Missing Attachment [id number] Can be viewed in source system Missing Attachment [id number] Can be viewed in source system Missing Attachment [id number] Can be viewed in source system Missing Attachment [id number] Can be viewed in source system Missing Attachment [id number] Can be viewed in source system Missing Attachment [id number] Can be viewed in source system Missing Attachment [id number] Can be viewed in source system Missing Attachment [id number] Can be viewed in source system Missing Attachment [id number] Can be viewed in source system Patient: Steven Michelle Age: 68 years Sex: Male : 1955 Associated Diagnoses: Diverticula, colon; Internal hemorrhoids Author: Taurus Jimenez MD Pre-Procedure Procedure Date: 06/04/2023 . Procedure Type: Colonoscopy. Procedure provider: Performed by Taurus Jimenez MD. Current history and physical: Documented on chart, Allergies (1) Active Reaction No Known Medication Allergies None Documented , Medications (2) Active Scheduled: (0) Continuous: (1) Lactated Ringers 1,000 mL 1,000 mL, IV, 15 mL/hr PRN: (1) sodium chloride 0.9% Inj Soln 10 mL Flush 10 mL, IV Push, As Indicated . Family History: No family history items have been selected or recorded.. Social History: Social & Psychosocial Habits Alcohol 06/04/2023 Use: Current Type: Beer Frequency: 3-5 times per week Tobacco 06/04/2023 Use: Former smoker, quit more Type: Cigarettes . Procedure History: Colonoscopy ([id number]).. Problem History: All Problems Hyperlipidemia / 18509901 / Confirmed Hypertension / [id number] / Confirmed. Informed Consent: After discussing the rationale, risks and benefits, and alternatives to this procedure, the patient provided signed consent for the procedure. Indication: Age 50 years or over. Medications: (Selected) Inpatient Medications Ordered LR 1,000 mL: 15 mL/hr, IV Normal Saline Flush 0.9% injectable solution: 10 mL, IV Push, As Indicated, PRN: flush Prescriptions Prescribed GoLYTELY oral powder for reconstitution: See Instructions, Use as directed by office for colonoscopy prep., 1 EA, 0 Refill(s). ASA Classification: Class II. Monitoring: See anesthesia record. Procedure Location: Endo Suite. See anesthesia record for sedation given during procedure. Rectal exam was performed and was normal. The patient was positioned starting in the left lateral decubitus position. Endoscope type used was an adult-size, colonoscope. The endoscope was introduced through the anus. The scope was advanced to the cecum verified by visualization of the appendiceal orifice, verified by visualization of the ileocecal valve. No difficulties encountered during the procedure. The bowel was carefully examined as the scope was withdrawn 7 minutes after visualizing the cecum. Bowel prep quality was BBPS score of 6 The patient tolerated the procedure well. Findings Nonbleeding diverticulosis was noted from sigmoid-descending colon regions Healthy looking colocolonic anastomosis was noted in the rectosigmoid region Nonbleeding medium sized internal hemorrhoids were found on retroflexion. Images Procedure images: COLON_0001.jpg COLON_0002.jpg COLON_0003.jpg COLON_0004.jpg COLON_0005.jpg COLON_0006.jpg COLON_0007.jpg COLON_0008.jpg COLON_0009.jpg COLON_0010.jpg COLON_0011.jpg COLON_0012.jpg COLON_0013.jpg COLON_0014.jpg COLON_0015.jpg COLON_0016.jpg COLON_0017.jpg COLON_0018.jpg . Post-Procedure Complications encountered during the procedure were none. Impression and Plan Colonoscopy: Diagnosis: Diverticula, colon (PMP17-PV K57.30, Discharge, Medical), Internal hemorrhoids (SGC60-LFJ18.8, Discharge, Medical (more content not included)... [facility] CenterComment on above:Order Comment: Missing Attachment [id number] Can be viewed in source system Missing Attachment [id number] Can be viewed in source system Missing Attachment [id number] Can be viewed in source system Missing Attachment [id number] Can be viewed in source system Missing Attachment [id number] Can be viewed in source system Missing Attachment [id number] Can be viewed in source system Missing Attachment [id number] Can be viewed in source system Missing Attachment [id number] Can be viewed in source system Missing Attachment [id number] Can be viewed in source system Missing Attachment [id number] Can be viewed in source system Missing Attachment [id number] Can be viewed in source system Missing Attachment [id number] Can be viewed in source system Missing Attachment [id number] Can be viewed in source system Miss ing Attachment [id number] Can be viewed in source system Missing Attachment [id number] Can be viewed in source system Missing Attachment [id number] Can be viewed in source system Missing Attachment [id number] Can be viewed in source system Missing Attachment [id number] Can be viewed in source systemBAPTIST HEALTH LA GRANGE AUTO DIFFon [id number] #0.0 103/ulNormal0.0-0.1The [facility]ina HospitalComment on above:Performed By: #### CBC #### [facility] [address] [place] [address] Dr. Amarilis BarriosBasophils/100 WBC (Bld)0.7 %Normal0.2-2.0[facility] Comment on above:Performed By: #### CBC #### [facility] [address] [place] [address] Dr. Amarilis Colon #0.2 103/ulNormal0.0-0.7The [facility] HospitalComment on above: Performed By: #### CBC #### [facility] [address] [address] [address] Amarilis Ferreiraosinophils/100 WBC (Bld)3.6 %Normal0.9-7.0[facility] Comment on above:Performed By: #### CBC #### [facility] [address] [place] [address] Dr. Amarilis Ferreirarythrocyte distribution width (RBC) [Ratio]12.3 %Aychgm02.0-15.0 The [facility] HospitalComment on above:Performed By: #### CBC #### [facility] [address] [place] [address] Dr. Amarilis BarriosHematocrit (Bld) [Volume fraction]44.0 %Kvbpkf43.0-54.0The [facility] HospitalComment on above:Performed By: #### CBC #### [facility] [address] [place] [address] Dr. Amarilis BarriosHemoglobin (Bld) [Mass/Vol]14.8 g/oMJrjogi30.0-18.0[facility] on above:Performed By: #### CBC #### [facility] [address] [address] [address] Amarilis Talbert #0.02 10e3/ulNormal0.00-0.03The [facility] on above:Performed By: #### CBC #### [facility] [address] [place] [address] Dr. Amarilis Talbert %0.4 %Normal0.0-0.5The [facility] on above: Performed By: #### CBC #### [facility] [address] [place] [address] Dr. Amarilis Martinez #2.1 103/ulNormal1.2-3.8The [facility] on above:Performed By: #### CBC #### [facility] [address] [place] [address] Dr. Amarilis Peñahocytes/100 WBC (Bld)36.8 %Edejzk58.5-60.0[facility] on above:Performed By: #### CBC #### [facility] [address] [place] [address] Dr. Amarilis PearceUAL DIFF REQNONormalThe [facility] on above: Performed By: #### CBC #### [facility] [address] [place] [address] Dr. Amarilis Mcpherson (RBC) [Entitic mass]31.4 ehEqoofb78.9-34.0[facility] on above:Performed By: #### CBC #### [facility] [address] [place] [address] Dr. Amarilis Mcpherson (RBC) [Mass/Vol]33.6 g/oJMrresg48.9-35.2[facility] on above:Performed By: #### CBC #### [facility] [address] [place] [address] Dr. Amarilis Mcpherson (RBC) [Entitic vol]93.2 xJDtodqg05.0-94.0The [facility] HospitalComment on above:Performed By: #### CBC #### [facility] [address] [address] [address] Amarilis Slade #0.4 103/ulNormal0.3-0.8The [facility] HospitalComment on above:Performed By: #### CBC #### [facility] [address] [address] [address] Amarilis Irvinocytes/100 WBC (Bld)7.8 %Normal1.7-12.0[facility] Comment on above:Performed By: #### CBC #### [facility] [address] [address] [address] Amarilis Wren #2.9 103/ulNormal1.4-6.5The [facility] HospitalComment on above:Performed By: #### CBC #### [facility] [address] [place] [address] Dr. Amarilis Tannerutrophils/100 WBC (Bld)50.7 %Rubgos07.0-75.0The [facility] HospitalComment on above:Performed By: #### CBC #### [facility] [address] [place] [address] Dr. Amarilis [place] mean volume (Bld) [Entitic vol]9.2 fLCritically low 9.5-13.5The [facility] HospitalComment on above:Performed By: #### CBC #### [facility] [address] [place] [address] Dr. Amarilis JuaresT242 103/zsEenauw259-838Gvu Medina HospitalComment on above: Performed By: #### CBC #### [facility] [address] [place] [address] Dr. Amarilis BarriosRBC4.72 106/ulNormal4.70-6.10The [facility] HospitalComment on above:Performed By: #### CBC #### [facility] [address] [place] [address] Dr. Amarilis BarriosWBC5.6 103/ulNormal4.0-11.0The [facility] HospitalComment on above: Performed By: #### CBC #### [facility] [address] [address] [address] Amarilis BarriosGLYCOHEMOGLOBIN A1Con 10-76-6884PTZ RECOMMENDATIONADA THERAPEUTIC TARGET 6.0 - 7.0 ACTION SUGGESTED > 7.0[facility] Healthcare SystemComment on above:Performed By: #### A1C #### [facility] [address] [address] [address] Amarilis BarriosGlucose [Mass/Vol]131 mg/dLNoAkron Children's HospitalComment on above:Performed By: #### A1C #### [facility] [address] [place] [address] Dr. Amarilis BarriosHbA1c (Bld) [Mass fraction]6.2 %Critically high<=6.0[facility] CenterComment on above:Performed By: #### A1C #### [facility] [address] [place] [address] Dr. Amarilis BarriosLIPID PROFILEon [id number]-HDL RATIO NORMSEE [facility] HospitalComment on above:Result Comment: 3.3 - 4.4 LOW RISK 4.4 - 7.1 AVERAGE RISK 7.1 - 11.0 MODERATE RISK >11.0 HIGH RISKPerformed By: #### CMP, LIPID, TSH #### [facility] [address] [place] [address] Dr. Amarilis BarriosCholesterol [Mass/Vol]247 mg/dLCritically high<=200The [facility] HospitalComment on above:Performed By: #### CMP, LIPID, TSH #### [facility] [address] [place] [address] Dr. Amarilis BarriosCholesterol in HDL [Mass/Vol]57 mg/dLACMC Healthcare System Comment on above:Performed By: #### CMP, LIPID, TSH #### [facility] [address] [place] [address] Dr. Amarilis BarriosCholesterol in LDL [Mass/Vol]173.4 mg/dLACMC Healthcare SystemComment on above:Performed By: #### CMP, LIPID, TSH #### [facility] [address] [address] [address] Amarilis BarriosCholesterol.total/Cholesterol in HDL [Mass ratio]4.3 {ratio} NormalThe Medina HospitalComment on above:Performed By: #### CMP, LIPID, TSH #### [facility] [address] [place] [address] Dr. Amarilis Huber NORMAL> or = 60 mg/dl - LOW CARDIOVASCULAR RISK <40 mg/dl - HIGH CARDIOVASCULAR RISKACMC Healthcare SystemComment on above:Performed By: #### CMP, LIPID, TSH #### [facility] [address] [place] [address] Dr. Amarilis BarriosLDL CALC NORMALSEE BELOWACMC Healthcare SystemComment on above:Result Comment: <100 mg/dl OPTIMAL 100 - 129 mg/dl NEAR OR ABOVE OPTIMAL 130 - 159 mg/dl BORDERLINE HIGH 160 - 189 mg/dl HIGH >190 mg/dl VERY HIGH Performed By: #### CMP, LIPID, TSH #### [facility] [address] [place] [address] Dr. Amarilis BarriosTriglyceride [Mass/Vol]83 mg/dLNormal<=150[facility] Comment on above:Performed By: #### CMP, LIPID, TSH #### [facility] [address] [place] [address] Dr. Amarilis BarriosVLDL CALC16.6 mg/dLNoAkron Children's HospitalComhawthorn center on above: Performed By: #### CMP, LIPID, TSH #### [facility] [address] [place] [address] Dr. Amarilis BarriosPROF 14(COMP METB)on 52-68-5517Ppzuwis [Mass/Vol]3.5 g/dLNormal 3.5-5.0The [facility]Comhaw[facility] on above:Performed By: #### CMP, LIPID, TSH #### [facility] [address] [place] [address] Dr. Amarilis BarriosAlbumin/Globulin [Mass ratio]1.0 {ratio}NormalThe [facility]ina HospitalComment on above:Performed By: #### CMP, LIPID, TSH #### [facility] [address] [address] [address] Amarilis Brock [Catalytic activity/Vol]71 U/NWvpedp00-170Dws [facility] HospitalComment on above:Performed By: #### CMP, LIPID, TSH #### [facility] [address] [address] [address] Amarilis Torres [Catalytic activity/Vol]22 U/OFgnlep95-70Pzl [facility] HospitalComment on above:Performed By: #### CMP, LIPID, TSH #### [facility] [address] [address] [address] Amarilis Morfin gap [Moles/Vol]7.4 mmol/LNormalThe [facility] HospitalComment on above:Performed By: #### CMP, LIPID, TSH #### [facility] [address] [address] [address] Amarilis BarriosAST [Catalytic activity/Vol]17 U/VZdwage07-79Noo [facility] HospitalComment on above:Performed By: #### CMP, LIPID, TSH #### [facility] [address] [address] [address] Amarilis BarriosBilirubin [Mass/Vol]0.8 mg/dLNormal0.2-1.3The [facility] Comment on above:Performed By: #### CMP, LIPID, TSH #### [facility] [address] [address] [address] Amarilis BarriosCalcium [Mass/Vol]8.9 mg/dLNormal8.4-10.2[facility] Comment on above:Performed By: #### CMP, LIPID, TSH #### [facility] [address] [address] [address] Amarilis BarriosChloride [Moles/Vol]106 mmol/LSrkxug60-274Lec [facility] Comment on above:Performed By: #### CMP, LIPID, TSH #### [facility] [address] [address] [address] Amarilis BarriosCO2 [Moles/Vol]30.7 mmol/LCritically high22.0-30.0The [facility] HospitalComment on above:Performed By: #### CMP, LIPID, TSH #### [facility] [address] [address] [address] Amarilis BarriosCreatinine [Mass/Vol]0.82 mg/dLNormal0.66-1.25The [facility] HospitalComment on above:Performed By: #### CMP, LIPID, TSH #### [facility] [address] [address] [address] Amarilis FerreiraGFR-AF CONGOLESE>60Normal>=60The [facility] HospitalComment on above:Performed By: #### CMP, LIPID, TSH #### [facility] [address] [place] [address] Dr. Amarilis FerreiraGFR-NON AF CONGOLESE>60Normal>=60The [facility] HospitalComment on above:Performed By: #### CMP, LIPID, TSH #### [facility] [address] [address] [address] Amarilis BarriosGlobulin (S) [Mass/Vol]3.6 g/dLNormalThe [facility] HospitalComment on above:Performed By: #### CMP, LIPID, TSH #### [facility] [address] [place] [address] Dr. Amarilis BarriosGlucose [Mass/Vol]107 mg/dLCritically byzd31-756Haj [facility] HospitalComment on above:Performed By: #### CMP, LIPID, TSH #### [facility] [address] [address] [address] Amarilis BarriosPotassium [Moles/Vol]5.1 mmol/LCritically high3.4-5.0The [facility] HospitalComment on above:Performed By: #### CMP, LIPID, TSH #### [facility] [address] [place] [address] Dr. Amarilis BarriosProtein [Mass/Vol]7.1 g/dLNormal6.1-8.2The [facility] Comment on above:Performed By: #### CMP, LIPID, TSH #### [facility] [address] [address] [address] Amarilis BarriosSodium [Moles/Vol]139 mmol/TRcgoso845-180Uue [facility] Comment on above:Performed By: #### CMP, LIPID, TSH #### [facility] [address] [address] [address] Amarilis BarriosUrea nitrogen [Mass/Vol]20.0 mg/dLNormal9.0-20.0The [facility] HospitalComment on above:Performed By: #### CMP, LIPID, TSH #### [facility] [address] [address] [address] Amarilis BarriosUrea nitrogen/Creatinine [Mass ratio]24.4 mg/mgNoAkron Children's HospitalComment on above:Performed By: #### CMP, LIPID, TSH #### [facility] [address] [place] [address] Dr. Amarilis Vance 85-12-2423LCL9.691 uIU/mLCritically high0.470-4.680The [facility] HospitalComment on above:Performed By: #### CMP, LIPID, TSH #### [facility] [address] [address] [address] Amarilis Bradley [facility] BELOWACMC Healthcare SystemComment on above: Result Comment: <0.34 UIU/ml HYPERTHYROID 0.34-5.60 UIU/ml EUTHYROID >5.60 UIU/ml HYPOTHYROIDPerformed By: #### CMP, LIPID, TSH #### [facility] [address] [place] [address] Dr. Amarilis Barrios Vital Signs Date TimeVital SignValuePerforming UatmhtzscVsdrihtc01-62-8469 14:41-0400Body .88 cmBenPaloma Mobile Ball DO Work Phone: [facility]10-28-2025 14:41-0400 Body mass index (BMI) [Ratio]27.4 kg/x5Psazghpo Ball DO Work Phone: [facility]10-28-2025 14:41-0400 Body mapvwmvdexg47.2 [degF]Ovidio Ball DO Work Phone: 1(419)[phone] [place], [place] 4505410-28-2025 14:41-0400 Body cwrapy14.79 kgBenjamin Ball DO Work Phone: 1(419)[phone] [place], [place] 4505410-28-2025 14:41-0400 Diastolic blood mm[Hg]Ovidio Ball DO Work Phone: 1(419)[phone] [place], [place] 4505410-28-2025 14:41-0400 Heart rate68 /minBenjamin Ball DO Work Phone: [phone] [place], [place] 4505410-28-2025 14:41-0400 SaO2% (BldA) [Mass fraction]98 %Ovidio Ball DO Work Phone: 1(419)[address] [place], [place] 4505410-28-2025 14:41-0400 Systolic blood qfclbigx548 mm[Hg]Ovidio Ball DO Work Phone: 1(419)[address] [place], [place] 4505409-30-2025 14:40-0400 Body .88 cmBenjamin Ball DO Work Phone: [phone] [place], [place] 4505409-30-2025 14:40-0400 Body mass index (BMI) [Ratio]27.4 kg/x7Lcxhazxa Ball DO Work Phone: 1(419)[address] [place], [place] 4505409-30-2025 14:40-0400 Body mxujdu06.79 kgBenjamin Ball DO Work Phone: 1(419)[address] [place], [place] 4505409-30-2025 14:40-0400 Diastolic blood krefrnye93 mm[Hg]Ovidio Ball DO Work Phone: 1(419)[address] [place], [place] 4505409-30-2025 14:40-0400 Heart rate62 /minBenjamin Ball DO Work Phone: 1(419)[address] [place], [place] 4505409-30-2025 14:40-0400 Respiratory rate12 /minBenjamin Ball DO Work Phone: 1(419)[address] [place], [place] 4505409-30-2025 14:40-0400 Systolic blood ielxlhvy528 mm[Hg]Ovidio Ball DO Work Phone: [phone]07-28-2025 14:27-0400 Body mphysr705.88 cmBenjamin Ball DO Work Phone: [phone]07-28-2025 14:27-0400 Body mass index (BMI) [Ratio]27.1 kg/v7Nsngblwf Ball DO Work Phone: [phone]07-28-2025 14:27-0400 Body dokooc81.88 kgBenjamin Ball DO Work Phone: [phone]07-28-2025 14:27-0400 Diastolic blood yyzougbv35 mm[Hg]Ovidio Ball DO Work Phone: [phone]07-28-2025 14:27-0400 Heart rate66 /minBenjamin Ball DO Work Phone: [phone]07-28-2025 14:27-0400 Respiratory rate12 /minBenjamin Ball DO Work Phone: [phone]07-28-2025 14:27-0400 Systolic blood ljcuqilh188 mm[Hg]Ovidio Ball DO Work Phone: [phone]07-26-2024 11:38-0400 Body gdzowv006.88 cmThe [facility]07-26-2024 11:38-0400Body mass index (BMI) [Ratio]27.2 kg/e1YutriktyhThe [facility] System07-26-2024 11:38-0400Body dlnqay31.22 kgThe [facility]07-26-2024 11:38-0400Diastolic blood awiikdqy01 mm[Hg][facility] 05-02-2024 11:38-0400Heart rate71 /[facility] 05-02-2024 11:38-0400Respiratory rate12 /[facility] 05-02-2024 11:38-0400Systolic blood tavonuep665 mm[Hg][facility]07-13-2023 10:30-0400Body kffydh595.88 cmBenjamin Ball Other [employer] Other 07-13-2023 10:30-0400Body mass index (BMI) [Ratio] 27.12 kg/h9Nmotzdel Ball Other [employer] Other 07-13-2023 10:30-0400Body zttpse69.72 kgBenjamin Ball Other [employer] Other 07-13-2023 10:30-0400Diastolic blood eiivwqtn15 mm[Hg] Ovidio Dwyer Other [employer] Other 07-13-2023 10:30-0400Respiratory rate12 /minBenjamin Ball Other [employer] Other 07-13-2023 10:30-0400Systolic blood qxpaqmpm381 mm[Hg] Ovidio Dwyer Other [employer] Other Encounters Encounter DateEncounter TypeCare ProviderFacilityStart: 08-04-2025 End: 56-49-8911pwqccyjrghQjkeeuxi Ball DO Work Phone: [facility]Start: 08-04-2025 End: 46-67-3103Udadoqj encounter procedureBenjamin Ball DO-[facility] Work Phone: Start: 07-07-2025 End: 03-18-1502tbxoimobzyKegdyebt Ball DO Work Phone: [facility] Work Phone: Start: 07-07-2025 End: 02-58-9780Fvraoye encounter procedureBenjamin Ball DO-[facility] Work Phone: Start: 05-04-2025 End: 62-30-1026sdwltyvszyVhnphqmu Ball DO Work Phone: [facility] Work Phone: Start: 05-04-2025 End: 78-92-6950Nslyqix encounter procedureBenjamin Ball DO-[facility] Work Phone: Start: 50-83-9286Fzcklru encounter procedureBenjamin Ball DO Work Phone: [facility]: 03-18-2025 End: 69-18-6798Ovzsfl flowsheetAlison L Radha PA Work Phone: [facility] TSR DERMStart: 03-18-2025 End: 48-27-8334Zqhjet flowsheetAlison L Radha PA Work Phone: NOXZ TSR DERMStart: 03-18-2025 End: 62-13-0350Wpbarrv encounter procedureAlison L Radha PA Work Phone: NOM[facility] TSR DERMComment on above:Common wart (Primary Dx); PainStart: 03-18-2025 End: 51-00-7607zvpxjewjrcXDUUMI L WINANSNot AvailableStart: 02-16-2025 End: 43-38-4023Yslifu flowsheetAlison L Radha PA Work Phone: [facility] DERMStart: 02-16-2025 End: 19-78-9334Psrqzo flowsheetAlison L Radha PA Work Phone: [facility] DERMStart: 02-16-2025 End: 07-79-8030Anlbuih encounter procedureAlison L Radha PA Work Phone: [facility] TSR DERMComment on above:Common wart (Primary Dx); PainStart: 02-16-2025 End: 70-51-5764chwopmxnadBLNAJX L WINANSNot AvailableStart: 01-16-2025 End: 53-87-5904Qootsd flowsheetAlison L Radha PA Work Phone: NOZG TSR DERMStart: 01-16-2025 End: 46-82-3392Kfgcfq flowsheetAlison L Radha PA Work Phone: noMS TSR DERMStart: 01-16-2025 End: 01-67-7924Iexyyyt encounter procedureAlison L Radha PA Work Phone: noms TSR DERMComment on above:Common wart (Primary Dx); PainStart: 01-16-2025 End: 32-15-8203ejjsnyuujjRSZPIT L WINANSNot AvailableStart: 12-08-2024 End: 75-54-5764Ajnyhr outpatient new 30 minutesAlison L Radha PA Work Phone: noms TSR DERMComment on above:Seborrheic keratosis (Primary Dx); Actinic keratosis; Melanocytic nevus of trunk; Dermatofibroma of left lower extremity; Common wart; PainStart: 12-08-2024 End: 36-96-1084pqkypjvqhnIIEAFY L WINANSNot AvailableStart: 12-08-2024 End: 96-11-8986Cowuku flowsheetAlison L Radha PA Work Phone: [facility]SR DERMStart: 12-08-2024 End: 81-13-4509Tsswml flowsheetAlison L Radha PA Work Phone: [facility]SR DERMStart: 05-02-2024 End: 77-43-2825zgzsgsdwyvOmefmgmfr [facility] Work Phone: Start: 05-02-2024 End: 23-31-4545Ybwrgdt encounter procedureUn[facility] Work Phone: Start: 14-15-2441Izhsosc encounter procedureMarietta Memorial Hospitaltart: 11-20-2023 End: 08-45-1876bfdktooeysKxqqabaJoselyn Dasilva MDFacility:[facility] Start: 06-27-2023 End: 26-27-3403jmzjcxfgbrPtjpjdgi Ball Other [employer] Other Start: 32-27-3499Rpwvoflwj encounterBenlive BallCARMELG [facility] Medical ClinicStart: 33-52-4724Wjkgbjfvo encounterBenlive KnightG [facility] ClinicStart: 06-04-2023 End: 23-23-7070bavwlojikoChjzfljp Edward Ball [facility] [employer] Other Start: 04-25-2023 End: 82-37-5137qrzqhlqbnmTeawry Liam Melania LEASING REPRESENTATIVE-CNPFacility:[facility]ansonStart: 04-23-2023 End: 84-91-3983rpbhiknrzpDijseovd Ball Other [employer] Other Start: 19-58-8181Phzdmqrqb encounterBenlive KnightG [facility] ClinicStart: 04-19-2023 End: 00-49-5391pufajchiptRuphxyds Ball Other [employer] Other Start: 47-53-3370Odvslin encounter procedureBenlive Dwyer Medical ClinicStart: 20-38-9131Fhpsu health examinationBenlive Dwyer Other [employer] Other Start: 24-58-3979Fzphdcyei for general adult medical examination without abnormal findingsDR OVIDIO DWYERHocking Valley Community Hospitaltart: 12-12-2021 End: 25-38-4655exeipsfvxoWT OVIDIO BALLFacility:M7Xqshz: 12-12-2021 End: 43-76-1672Urpbsurgo for general adult medical examination without abnormal findingsDR OVIDIO BALLFacility:N6Lahga: 08-03-2021 End: 98-69-7142rxhxdnwfsuHUEWIJ ROSSFacility:C3Zdlmi: 06-16-2021 End: 60-58-2604vmsgwffiktZNEQY HIGHLANDERFacility:D4Fqyyv: 12-29-2020 End: 94-71-4336tdgisscfzcNP OVIDIO DWYERFacility:H1 Procedures DateProcedureProcedure DetailPerforming ClinicianStart: 47-30-2811KLLSNURRTGZ SKIN LESIONAlison L Radha PA Work Phone: Start: 18-14-2811TTLANPRWGDJ SKIN LESIONAlison L Radha PA Work Phone: Start: 94-19-3948XJMLKOYJWRV SKIN LESIONAlison L Radha PA Work Phone: Start: 12-08-2024 End: 33-54-3451BIUVTIPLWTR SKIN LESIONAlison L Radha PA Work Phone: Start: 40-84-5971RDM screeningDR OVIDIO BALLComment on above:Performed By: #### PSASC #### [facility] [address] [place] [address] Dr. Amarilis BarriosStart: 85-80-4539Exthpoc examination of patientBenlive Dwyer Other Start: 69-63-7559Plycfncjt for malignant neoplasm of prostateBenlive Dwyer Other Depression screeningBenlive Dwyer Other Screening for malignant neoplasm of prostateBenlive Dwyer Other Plan of Treatment DateCare ActivityDetailAuthorStart: 12-09-2025 End: 94-88-6124Bxepudn encounter iqezbvjag65/04/2026 1:00 PM EST Office Visit [facility] [address] [place] [address] Marisol Al PA [address] [place] [address] [facility] DERMStart: 04-15-2025 End: 60-13-3372Boijmmi encounter owbaolrpy84/09/2025 12:50 PM EDT Office Visit [facility] [address] [place] [address] Marisol Al PA [address] [place] [address] [facility] DERMStart: 03-18-2025 End: 27-14-3518Jgajaki encounter procedureNOMS TSR DERMComment on above:Arrived Start: 02-16-2025 End: 25-78-5852Ogbxyif encounter procedureNOMS TSR DERMComment on above:Arrived Start: 01-16-2025 End: 27-62-4426Rkcjgor encounter procedureNOMS TSR DERMComment on above:Arrived Start: 12-08-2024 End: 35-02-6547Nnppzmw encounter jqahgwxve86/03/2025 2:40 PM EST Office Visit [facility] [address] [place] [address] Marisol Al, PA [address] [place], [place] [id number] ArrivedNOMS TSR DERMComment on above:ArrivedComprehensive metabolic 1999 panel - [facility] Comprehensive metabolic 1999 panel - [facility] HospitalMR Lumbar spine WO [facility] HospitalPatient EducationLow back pain in adultsSamaritan Hospital Work Phone: XR Lumbar spine 2 or 3 [facility] Immunizations Immunization DateImmunizationNotesCare EahmxsvrLvqaurfg25-93-5913YZPJR-05 Vaccine Moderna - Documentation Purposes OnlyOvidio Dwyer Other [facility]03-24-2021COVID-19 Vaccine Moderna - Documentation Purposes OnlyBemanda Dwyer Other [facility]02-25-2021COVID-19 Vaccine Moderna - Documentation Purposes OnlyBemanda Dwyer Other [facility]09-30-2017diphtheria, tetanus toxoids and acellular pertussis vaccine, unspecified formulation Ovidio Dwyer Other [facility] Payers DatePayer CategoryPayerPolicy [id number] Private Health [id number] [id number] [id number] [id number]-[id number] 2.16.840.1.529848.3.57[id number] 2.840.1.674527.3.57[id number] 2.16.840.1.755709.3.57[id number] 2..840.1.028573.3.57[id number] 2.16.840.1.914291.3.57[id number] 2.16.840.1.817579.3.57[id number] 2.16.840.1.349661.3.57[id number] 2.16.840.1.437684.3.57[id number] 2.16.840.1.850635.3.57[id number] 2.16.840.1.89[id number] 2.0.1.298081.3.579.2.593 [id number] 2.840.1.7[id number] 2.840.1.363525.19 Social History DateTypeDetailFacilityStart: 12-08-2024 End: 47-38-6192Zmm Assigned At [facility] [employer] Other Start: 01-56-4944Fse Assigned At [facility] HospitalTobacco smoking status NHISTobacco smoking consumption unknownNOMS HealthcareStart: 46-90-9321Qif assigned at [facility] health partnersNot on fileNOMS HealthcareStart: 42-04-0519Hnrapgf smoking status NHISNever smoked tobaccoNOMS HealthcareStart: 17-27-3470Agmsyjy use and exposureSmokeless tobacco non-user NOMS HealthcareStart: 12-08-2024 End: 93-28-1349Zcmxypq of Social functionNOMS HealthcareSexMale (finding) [facility] Clinical Notes 06-16-2021 to 07-07-2025 Note Date & KlseMjccEhjaxylb43-98-5543 Evaluation note* Diagnosis Onset Date Resolution Status Admit Date Low back pain acuteSeptember 2024 2:07pmLumbar spondylosisacuteSeptember 2024 2:07pmLow back painacuteOctober 2024 2:29pmLumbosacral spondylosis with radiculopathyacuteOctober 2024 2:29pm [facility] Work Phone: 1(593) 399-617507-28-2025 Evaluation note* Diagnosis Onset Date Resolution Status Admit Date Hypercholesterolemia acuteJuly 2024 2:03pmHypertensionacuteJuly 2024 2:03pmLumbar spondylosisacuteJuly 2024 2:03pmMedicare annual wellness visit, subsequent acuteJuly 2024 2:03pmOverweightacuteJuly 2024 2:03pmScreening PSA (prostate specific antigen)acuteJuly 2024 2:03pmLow back painacute July 07, 2025 2:07pmLumbar spondylosisacuteSept2024 2:07pm [facility] Work Phone: 1(845) 617-715206-11-2025 History of Present illness Narrative* STEFAN Daniels - 03/18/2025 1:50 PM EDT Images from the original note were not included. Follow up Diagnosis: Warts Location: Right 4th Finger Last visit: 1 month ago Symptoms: none Status: smaller Procedure performed: Cryotherapy Date of procedure: 02/16/2025 Number of treatments to date: 3 All pertinent medical history, medications, and allergies were reviewed. General Exam: alert, oriented to person, place, and time, normal affect, well appearing Accompanied by spouse A focused exam completed based on patient reported problems, see below: Skin Exam 1. COMMON WART Right Dorsal Mid 4th Finger Erythematous verrucous papules. Much smaller today. Patient elected for cryotherapy today, see procedure note. Diagnosis: Verruca Indication: Inflamed Consent: Verbal consent was obtained and risks were discussed, including, but not limited to risks of scarring, darker or senior animal trainer pigmentary changes, recurrence, incomplete removal and infection. Method: Liquid nitrogen was used to treat the lesion(s) with two 5-10 second freeze-thaw cycles Number of lesions treated: 1 Post-procedure instructions: Instructions were given orally and in writing. The office will be contacted if the lesion fails to resolve despite treatment, or if a side effect develops such as abnormal crusting, scabbing, redness or tenderness Cryotherapy, skin lesion - Right Dorsal Mid 4th Finger 2. PAIN Next Visit: 1 month documented in this encounterProgress West HospitalJafphezrhl83-13-3470 History of Present illness Narrative* STEFAN Daniels - 02/16/2025 1:00 PM EDT Images from the original note were not included. Follow up Diagnosis: Warts Location: Right 4th Finger Last visit: 1 month ago Symptoms: none Status: smaller Procedure performed: Cryotherapy Date of procedure: 01/16/2025 Number of treatments to date: 2 All pertinent medical history, medications, and allergies were reviewed. General Exam: alert, oriented to person, place, and time, normal affect, well appearing Accompanied by spouse A focused exam completed based on patient reported problems, see below: Skin Exam 1. COMMON WART Right Dorsal Mid 4thFinger Erythematous verrucous papule. Patient and family member was counseled regarding warts. Treatment options were discussed includingcryotherapy, claude antigen injections, and topical Cantharidin. It was explained that it typically requires multiple treatments before the wart(s) completely resolve. The importance of following upevery 3-4 weeks was emphasized. Encouraged OTC wart removers in between appointments to hasten resolution. Patient elected for cryotherapy today, see procedure note. Diagnosis: Verruca Indication: Inflamed Consent: Verbal consent was obtained and risks were discussed, including, but not limited to risks of scarring, darker or senior animal trainer pigmentary changes, recurrence, incomplete removal and infection. Method: Liquid nitrogen was used to treat the lesion(s) with two 5-10 second freeze-thaw cycles Number of lesions treated: 1 Post-procedure instructions: Instructions were given orally and in writing. The office will be contacted if the lesion fails to resolve despite treatment, or if a side effect develops such as abnormal crusting, scabbing, redness or tenderness Cryotherapy, skin lesion - Right Dorsal Mid 4thFinger 2. PAIN Next Visit: 1 month documented in this encounterProgress West HospitalHtkaglzyhf10-28-0426 History of Present illness Narrative* STEFAN Daniels - 01/16/2025 9:20 AM EDT Images from the original note were not included. Follow up Diagnosis: Warts Location: Right 4th Finger Metacarpophalangeal Joint Last visit: 1 month ago Symptoms: none Status: smaller Procedure performed: Cryotherapy Date of procedure: 12/08/2024 Number of treatments to date: 1 All pertinent medical history, medications, and allergies were reviewed. General Exam: alert, oriented to person, place, and time, normal affect, well appearing Accompanied by spouse A focused exam completed based on patient reported problems, see below: 1. Common wart (2) Right Dorsal Mid 4th Finger, Right Proximal 4th Finger Erythematous verrucous papules. Smaller today. Patient and/or family member was counseled regarding warts. Treatment options were discussed including cryotherapy, claude antigen injections, and topical Cantharidin. It was explained that it typically requires multiple treatments before the wart(s) completely resolve. The importance of followingup every 3-4 weeks was emphasized. Encouraged OTC wart removers in between appointments to hasten resolution. Patient elected for cryotherapy today, see procedure note. Diagnosis: Verruca Indication: Inflamed Consent: Verbal consent was obtained and risks were discussed, including, but not limited to risks of scarring, darker or senior animal trainer pigmentary changes, recurrence, incomplete removal and infection. Method: Liquid nitrogen was used to treat the lesion(s) with two 5-10 second freeze-thaw cycles Number of lesions treated: 2 Post-procedure instructions: Instructions were given orally and in writing. The office will be contacted if the lesion fails to resolve despite treatment, or if a side effect develops such as abnormal crusting, scabbing, redness or tenderness Cryotherapy, skin lesion - Right Dorsal Mid 4th Finger, Right Proximal 4th Finger 2. Pain Next Visit: 1 month documented in this encounterProgress West HospitalLfqhsqtioy82-13-6584 History of Present illness Narrative* STEFAN Daniels - 12/08/2024 2:40 PM EST Images from the original note were not included. Skin Check Location: Patient requests a full body skin examination Dermatologic history: history of Actinic Keratosis, no history of atypical moles New patient, previous DP patient Lesions: Location: right ring finger (warts) Duration: 1 year Quality: denies pain, denies itch, denies bleeding Modifying factors: aggravated by picking Associated symptoms: non-healing Treatments: none Lesions: Location: right arm Duration: years Quality: denies pain, denies itch, denies bleeding Modifying factors: aggravated by picking Associated symptoms: rough Treatments: none All pertinent medical history, medications, and allergies were reviewed. General Exam: alert, oriented to person, place, and time, normal affect, well appearing Unaccompanied Scalp, Examined Right leg Examined Head, Face Examined Left leg Examined Neck Examined Right foot Examined Chest Examined Left foot Examined Back Examined Buttocks Examined Abdomen Examined Digits,nails: Examined Right arm Examined Left arm Examined Lymphatics: Not examined Hands Examined 1. Seborrheic keratosis Stuck on verrucous, variably pigmented papules and plaques. Patient was counseled regarding these benign growths. Removal is normally not necessary, but they may be removed if they are symptomatic or for cosmetic reasons. 2. Actinic keratosis (3) Left Frontal Scalp, Mid Frontal Scalp, Mid Parietal Scalp Erythematous scaly papules Patient was counseled regarding these sun-induced growths that can develop into squamous cell carcinoma if left untreated. Discussed treatment with cryotherapy. It was emphasized that any treated lesions that fail to resolve should be re- evaluated. Cryotherapy performed today; see procedure note Diagnosis: Actinic keratosis Indication: Precancerous Location: see skin exam Consent: Verbal consent was obtained and risks were discussed, including, but not limited to risks of scarring, darker or senior animal trainer pigmentary changes, recurrence, incomplete removal and infection. Method: Liquid nitrogen was used to treat the lesion(s) with two 5-10 second freeze-thaw cycles. Number of lesions treated: 3 Post-procedure instructions: Instructions were given orally and in writing. The office will be contacted if the lesion fails to resolve despite treatment, or if a side effect develops such as abnormal crusting, scabbing, redness or tenderness Cryotherapy, skin lesion - Left Frontal Scalp, Mid Frontal Scalp, Mid Parietal Scalp 3. Melanocytic nevus of trunk Scattered benign appearing, regular brown to light brown melanocytic papules and macules with similar morphology Counseled regarding these benign growths. Rarely, a nevus can develop into malignant melanoma, so any changing nevi should be promptly re-evaluated. 4. Dermatofibroma of left lower extremity (2) Left Thigh - Anterior, Left Thigh - Posterior Firm brown papule that dimples with lateral pressure. Discussed that these are benign scars on the skin. If lesion is changing/symptomatic, return to office to have lesion re-evaluated 5. Common wart (3) Right 4th Finger Metacarpophalangeal Joint, Right 4th Finger Proximal Interphalangeal Joint, Right Proximal 4th Finger Erythematous verrucous papules. Patient and/or family member was counseled regarding warts. Treatment options were discussed including cryotherapy, claude antigen injections, and topical Cantharidin. It was explained that it typically requires multiple treatments before the wart(s) completely resolve. The importance of followingup every 3-4 weeks was emphasized. Encouraged OTC wart removers in between appointments to hasten resolution. Patient elected for cryotherapy today, see procedure note. Diagnosis: Verruca Indication: Inflamed Consent: Verbal consent was obtained and risks were discussed, including, but not limited to risks of scarring, darker or senior animal trainer pigmentary changes, recurrence, incomplete removal and infection. Method: Liquid nitrogen was used to treat the lesion(s) with two 5-10 second freeze-thaw cycles Number of lesions treated: 3 Post-procedure instructions: Instructions were given orally and in writing. The office will be contacted if the lesion fails to resolve despite treatment, or if a side effect develops such as abnormal crusting, scabbing, redness or tenderness Cryotherapy, skin lesion - Right 4th Finger Metacarpophalangeal Joint, Right 4th Finger Proximal Interphalangeal Joint, Right Proximal 4th Finger 6. Pain Next Visit: 1 [id number]* Encounter Date Diagnosis Assessment Notes Treatment Notes Treatment Clinical Notes May, Hyperlipidemia type II (ICD-10 - E78.01) [facility] Other 07-13-2023 Evaluation note* Encounter Date Diagnosis Assessment Notes Treatment Notes Treatment Clinical Notes Apr, Medicare annual wellness visit, initial (ICD-10 - Z00.00) Personalized health advice was given to the beneficiary including a written plan for screenings discussed and provided. Advanced care planning reviewed and/or information given as requested. Additional counseling was provided here today in regards to, [ ]. The above visit was performed by [ ], under direct supervision of [ ]. Document reviewed and amended by provider signed below. Apr,rimary hypertension (ICD-10 - I10)This patient is instructed to consume a healthy, low-fat, low-salt diet. They are also encouraged to continue exercise to achieve/maintain a normal BMI. Apr,Hyperlipidemia type II (ICD-10 - E78.01)Instructed on diet and exercise.Discussed the beneficial effects of lowering cholesterol in reducing the risk for cerebrovascular and cardiovascular disease. Apr,enign prostatic hyperplasia with lower urinary tract symptoms, symptom details unspecified (ICD-10- N40.1)Symptoms tolerable, yearly PSA and TIA Apr,Lumbar spondylosis (ICD-10 - M47.816)The patient is instructed to avoid bending, twisting or lifting. They are to use intermittent heat and ice as needed. They may schedule a massage or gentle manipulation. They may safely use Tylenol as needed. Apr,Screening PSA (prostate specific antigen) (ICD-10 - Z12.5)Yearly TIA and PSA Apr,High risk medication use (ICD-10 - Z79.899) Apr,Screening for colon cancer (ICD-10 - Z12.11)Last scope was 2012. He denies change in appetite, weight or bowel habits He denies N/V, heartburn or dysphagia He denies melena or hematochezia He does have a personal hx of [facility] Other 09-09-2021 NotePROCEDURE: XR ANKLE RT MIN 3 VIEWS, XR FOOT RT MIN 3 VIEWS HISTORY: Pain of right ankle joint ; right foot bone spur, Achilles tendinitis COMPARISON: XR heel bilateral 06/21/2018 FINDINGS: BONES:Separate, corticated ossifications at the medial malleolus favoring sequela of remote injury. No fracture, dislocation, or significant narrowing of the ankle joint space. Mild degenerative changes of the midfoot. 10 mm calcaneal plantar spur. Small degenerative enthesophyte Achilles tendon insertion into the calcaneus. SOFT TISSUES:No visible soft tissue swelling. EFFUSION:None visible. OTHER: Negative. IMPRESSION: 1. Prominent calcaneal plantar spur, not appreciably changed. Stable appearance of the Achilles tendon degenerative enthesophyte. 2. Mild degenerative changes of the midfoot. Electronically authenticated by: SINGH OLMOS Date: 2021-06-16 12:49[facility]09-09-2021 NotePROCEDURE: XR ANKLE RT MIN 3 VIEWS, XR FOOT RT MIN 3 VIEWS HISTORY: Pain of right ankle joint ; right foot bone spur, Achilles tendinitis COMPARISON: XR heel bilateral 06/21/2018 FINDINGS: BONES:Separate, corticated ossifications at the medial malleolus favoring sequela of remote injury. No fracture, dislocation, or significant narrowing of the ankle joint space. Mild degenerative changes of the midfoot. 10 mm calcaneal plantar spur. Small degenerative enthesophyte Achilles tendon insertion into the calcaneus. SOFT TISSUES:No visible soft tissue swelling. EFFUSION:None visible. OTHER: Negative. IMPRESSION: 1. Prominent calcaneal plantar spur, not appreciably changed. Stable appearance of the Achilles tendon degenerative enthesophyte. 2. Mild degenerative changes of the midfoot. Electronically authenticated by: SINGH OLMOS Date: 2021-06-16 12:49[facility] CenterEvaluation noteNo [facility] Other Evaluation note* Diagnosis Onset Date Resolution Status Benign prostatic hyperplasia with lower urinary tract symptoms acuteHypercholesterolemiaacuteHypertensionacuteLumbar spondylosisacuteMedicare annual wellness visit, initialacuteOverweightacuteScreening PSA (prostate specific antigen)noneactive [facility] Work Phone: Evaluation note* Diagnosis Seborrheic keratosis- Primary Actinic keratosis Melanocytic nevus of trunk Benign neoplasm of skin of trunk, except scrotum Dermatofibroma of left lower extremity Common wart Other specified viral warts Pain Generalized pain [facility] this [facility]* Diagnosis Common wart- Primary Other specified viral warts Pain Generalized pain documented in this [facility]* Diagnosis Common wart- Primary Other specified viral warts Pain Generalized pain documented in this [facility]* Diagnosis Common wart- Primary Other specified viral warts Pain Generalized pain documented in this [facility]* Diagnosis Onset Date Resolution Status Admit Date Hypercholesterolemia acuteJuly 2024 2:03pmHypertensionacuteJuly 2024 2:03pmLumbar spondylosisacuteJuly 2024 2:03pmMedicare annual wellness visit, subsequent acuteJuly 2024 2:03pmOverweightacuteJuly 2024 2:03pmScreening PSA (prostate specific antigen)acuteJuly 2024 2:03pm [facility] Work Phone: History general Narrative - Reported* Type Description Date Medical History Benign prostatic hyp erplasia with lower urinary tract symptoms, symptom details unspecified Medical HistoryLumbar spondylosisMedical HistoryEssential (primary) hypertension Medical HistoryHyperlipidemia type IIMedical HistoryContracture, right ankle Medical HistoryCalcaneal spur, rightMedical HistorySensorineural hearing loss (SNHL), unspecified lateralitySurgical HistorySIGMOND [id number] [id number] 2012Surgical [id number] HistorySEE SURGICAL [facility] Other History general Narrative - Reported* Type Description Date Medical History Benign prostatic hyp erplasia with lower urinary tract symptoms, symptom details unspecified Medical HistoryLumbar spondylosisMedical HistoryEssential (primary) hypertension Medical HistoryHyperlipidemia type IIMedical HistoryContracture, right ankle Medical HistoryCalcaneal spur, rightMedical HistorySensorineural hearing loss (SNHL), unspecified lateralitySurgical HistorySIGMOND [id number] [id number] 2012Surgical [id number] HistoryColonoscopy, repeat 5 Hospitalization HistorySEE SURGICAL [facility] Other Reason for referral (narrative)* Reason Referral for screeni ng colonoscopy Diagnosis 1 Encounter for screen ing colonoscopy (Z12.11) Referral Organization [facility] Referring Provider First Name Ovidio Referring Provider Last Name Reymundo Referring Provider Specialty Internal Me dicine Referred Organization [facility] Referred Address [address] [facility],[address] Referred Provider Specialty Gastroentero logy Referral Priority Routine General Notes Mr. Michelle is being r eferred for a screening colonoscopy. His last colonoscopy was in 2012. He states that he has a positive hx of sigmoid polyps, which required sigmoid resection in 2006. (I have no records pertaining to this procedure). He denies change in appetite, weight or bowel habits. He denies heartburn, dysphagia or indigestion. He denies melena or hematochezia. Clinical Notes He prefers to be ref erred to [facility] in [place] for his procedure. [facility] Other Reason for referral (narrative)No reason for referral information availableSamaritan Hospital Work Phone: Summary Purpose Family History Relationship Condition Age at Onset Recorded Date/T dominick father Family history of lung cancer Unknown Malignant neoplasmUnknownfamily memberMalignant neoplasmUnknownmotherMalignant neoplasm of breastUnknown Advance Directives Advance Directive Response Recorded Date/ Time Advance Directives No May 02 11:28am Chief Complaint and Reason for Visit Chief Complaint wellness Reason for Visit Benign prostatic hyp erplasia with lower urinary tract symptoms Hypercholesterolemia Hypertension Lumbar spondylosis Medicare annual wellness visit, initial Overweight Screening PSA (prostate specific antigen) Chief Complaint Admit Date Wellness May 04, 2025 2:03 pm Reason for Visit Admit Date Hypercholesterolemia May 04, 2025 2:0 3pm Hypertension May 04, 2025 2:03 pm Lumbar spondylosis May 04, 2025 2:03 pm Medicare annual wellness visit, subseque nt May 04, 2025 2:03pm Overweight May 04, 2025 2:03 pm Screening PSA (prostate specific antigen ) May 04, 2025 2:03pm Chief Complaint Admit Date Wellness May 04, 2025 2:03 pm back pain July 07, 2025 2:07pm Reason for Visit Admit Date Hypercholesterolemia May 04, 2025 2:0 3pm Hypertension May 04, 2025 2:03 pm Lumbar spondylosis May 04, 2025 2:03 pm Medicare annual wellness visit, subseque nt May 04, 2025 2:03pm Overweight May 04, 2025 2:03 pm Screening PSA (prostate specific antigen ) May 04, 2025 2:03pm Low back pain July 07, 2025 2:07pm Lumbar spondylosis July 07, 2025 2:07pm Chief Complaint Admit Date back pain July 07, 2025 2:07pm discuss getting MRI August 04, 2025 2 :29pm Reason for Visit Admit Date Low back pain July 07, 2025 2:07pm Lumbar spondylosis July 07, 2025 2:07pm Low back pain October 28th, 2025 2 :29pm Lumbosacral spondylosis with radiculopat hy August 04, 2025 2:29pm Additional Source Comments (unrecognized sect ion and content) No Status Records FoundNo Status Records FoundNo Status Records Found INFORMATION SOURCE (unrecogn ized section and content) DATE CREATED AUTHOR 12/16/2021 [facility] DATE CREATED AUTHOR 'S ORGANIZ ATION 11/22/2023 [facility] DATE CREATED AUTHOR 'S ORGANIZ ATION 03/21/2025 [facility] EPIC REASON FOR VISIT (unrecogniz ed section and content) ReasonCommentsSkin CheckReasonCommentsFollow-upReasonCommentsVerrucous Vulgaris Care Teams (unrecognized sec tion and content) Team Status: Active Member Role Status Dates Ovidio Dwyer DO Primary Care Provider Active Team Status: Inactive Member Role Status Dates Ovidio Dwyer DO Primary Care Provide r, Attending Provider Active Start: May 02, 2024 End: May 02, 2024 Team Status: Inactive Member Role Status Dates Ovidio Dwyer DO Primary Care Provider Active Start: May 04, 2025 End: May 04lizzie Dwyer DOAttending ProviderActiveStart: May 04, 2025 End: May 04, 2025 Team Status: Inactive Member Role Status Dates Ovidio Dwyer DO Primary Care Provider Active Start: July 07, 2025 End: July 07lizzie Dwyer , DOAttending ProviderActiveStart: July 07, 2025 End: July 07, 2025 Team Status: Active Member Role/Relationship Status Dates Ovidio Dwyer DO Primary Care Provider Active Team Status: Inactive Member Role/Relationship Status Dates Ovidio Dwyer DO Primary Care Provider Active Start: July 07, 2025 End: July 07lizzie Dwyer , DOAttending ProviderActiveStart: July 07, 2025 End: July 07, 2025 Team Status: Inactive Member Role/Relationship Status Dates Ovidio Dwyer DO Primary Care Provider Active Start: August 04, 2025 End: August 04lizzie Dwyer , DOAttending ProviderActiveStart: August 04, 2025 End: August 04, 2025 Goals (unrecognized section and content) Goals may be documented in a n alternate section FOR RECORDS PERTAINING TO PATIENTS WHO ARE OR HAVE BEEN ENROLLED IN A CHEMICAL DEPENDENCY/SUBSTANCEABUSE PROGRAM, SOME INFORMATION MAY BE OMITTED. This clinical summary was aggregated from multiple sources. Caution should be exercised in using it in the provision of clinical care. This summary normalizes information from multiple sources, and as a consequence, information in this document may materially change the coding, format and clinical context of patient data. In addition, data may be omitted in some cases. CLINICAL DECISIONS SHOULD BE BASED ON THE PRIMARY CLINICAL RECORDS. [facility] provides no warranty or guarantee of the accuracy or completeness of information in this document.
--- OUTSIDE RECORDS SUMMARY | 2025-08-07 12:34 | XMS_ITS | Clinical Summary ---
Author Organization [facility] Address [address] [place] [address] Care Team Providers Care Brush Maker Machine Name Role Phone Unavailable Primary Care Provider Unavailabl e Allergies No known active allergies Medications MedicationSigDispense QuantityRefillsLast FilledStart DateEnd DateStatus atorvastatin (Lipitor) 40 MG tablet 5Active lisinopril 5 MG tablet Take 5 mg by mouth Daily4Active Active Problems No known active problems Social History Tobacco UseTypesPacks/DayYears UsedDateSmoking Tobacco: NeverSmokeless Tobacco: Never Tobacco Cessation:Counseling Given: Not Answered Sex and Gender InformationValueDate RecordedSex Assigned at BirthNot on file Legal KsnWctr4712/20/2022 6:35 PM EDTGender IdentityNot on fileSexual Orientation Not on file Plan of Treatment DateTypeDepartmentCare Team (Latest Contact Info)Llgcqzinshz89/05/2025 11:10 AM ESTOffice Visit [facility] [address] [place] [address] Marisol Garcia PA [address] [facility] [address] [place] [address] 12/09/2025 1:00 PM ESTOffice Visit [facility] [address] [place] [address] Marisol Garcia PA [address] [facility] [address] [place] [address] Insurance
--- NOTE | 2025-08-07 12:36 | MR_ITS ---
[address] [address] Patient Name: RE GOEL MRN: [id number] date: 1955 Sex: M Assigned Patient Location: MRI Current Patient Location: MRI Accession/Order Number: [id number] Exam Date: 08/07/2025 12:45 Report Date: 08/07/2025 19:56 At the request of: SELENA TREJO DO Procedure: MR lumbar spine wo con MRI LUMBAR SPINE PERFORMED WITHOUT CONTRAST INDICATION: Spondylosis of lumbosacral spine with radiculopathy, acute lumbar pain for 2 months radiates into right and left leg with left leg weakness COMPARISON x-rays lumbar spine 07/07/2025 FINDINGS: Straightening and mild reversal normal lumbar lordosis. Zmve-zy-iedftnoe levocurvature. Slight heterogeneity of the bone marrow signal. Modic type II changes L4-5 and L2-3. Modic type II and minimal height L3 changes at L3-4. Moderate severe disc space disease L4-5 and L2-3. Moderate disc space disease at L1-2 and L3-4 and L5-S1. Multilevel facet arthropathy. The conus medullaris terminates at mid L1 vertebral body. 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 Paraspinal soft tissues unremarkable. T12-L1: Disc desiccation with facet arthropathy. Mild canal and mild neural foraminal narrowing L1-L2: Broad-based disc bulge with minimal endplate spurring extending both foramina zones. Pttt-dx-mqcoqain facet arthropathy and ligamentum flavum hypertrophy. Congenitally short pedicles. Moderate canal and moderate neural foraminal narrowing. L2-L3: Circumferential disc bulge with endplate osteophytosis extending into both foramina zones greatest the right. There is a small right subarticular zone extrusion which extends caudally 8 mm. There is moderate severe central canal stenosis and subarticular recess narrowing. Moderate severe right neural foraminal narrowing encroaching upon the right L2 nerve root. Bilateral subarticular recess narrowing right greater than left encroaching upon the L3 nerve roots. Moderate left frontal narrowing. L3-4: Circumferential disc bulge with endplate osteophytosis and moderate severe facet arthropathy. Severe central canal stenosis and subarticular recess narrowing left greater than right, correlate with bilateral L4 radiculopathy. There is moderate bilateral neural foraminal narrowing. L4-L5: Circumferential disc osteophyte complex with bulky left far lateral disc osteophyte complex noted bilateral facet arthropathy this causes moderate severe central canal and predominantly left-sided subarticular recess narrowing predominantly left-sided. Severe left neural foraminal narrowing correlate with left L4 and L5 radiculopathy. Moderate right subarticular and foraminal narrowing noted. L5-S1: Circumferential disc bulge with endplate osteophytosis and facet arthropathy causing moderate canal and moderate subarticular recess narrowing and moderate neural foraminal narrowing. MR/MR lumbar spine wo con IMPRESSION: Multilevel degenerative changes with canal and foraminal narrowing as above due to combination of disc disease, congenital short pedicles and posterior element degeneration. Left subarticular and and foraminal encroachment L4-5, correlate with possible left L4 and and L5 radiculopathy. Severe right subarticular recess narrowing at L2-3, correlate with right L3 radiculopathy. Moderate severe to severe central canal narrowing L2-L5, most pronounced at L2-3 Additional findings as noted above. Impression dictated by: Bhaskar Celeste M.D. 08/07/2025 7:56 PM Dictation Location: [place] [address] Electronically authenticated by: [id number] Y Date: 08/07/2025 19:56
== END 2025-08-07 12:28 | disposition home or self-care (01) ==
LOC: MRI 12:30
PROVIDERS: PCP Internal Medicine; Visit Provider Internal Medicine
DX: M54.50 Low back pain, unspecified (principal); M47.27 Other spondylosis with radiculopathy, lumbosacral region; M51.369 Other intervertebral disc degeneration, lumbar region without mention of lumbar back pain or lower extremity pain
CPT/HCPCS: 72148

== ENCOUNTER 2025-08-17 13:28 | Outpatient (OUT) | payer MEDICARE, SELFPAY ==
--- OUTSIDE RECORDS SUMMARY | 2025-08-17 13:31 | XMS_ITS | Clinical Summary ---
Author Organization [facility] Address [address] [place] [address] Care Team Providers Care Application Support Developer Name Role Phone Unavailable Primary Care Provider [...] RecordedSex Assigned at BirthNot on file Legal VbyIayw7812/20/2022 6:35 PM EDTGender IdentityNot on fileSexual Orientation Not on file Plan of Treatment DateTypeDepartmentCare Team (Latest Contact Info)Wxpfnmvguwl11/05/2025 11:10 AM ESTOffice Visit [facility] [address] [place] [address] Marisol Garcia PA [address] [facility] [address] [place] [address] 12/09/2025 1:00 PM ESTOffice Visit [facility] [address] [place] [address] Marisol Garcia PA [address] [facility] [address] [place] [address] Insurance
--- OUTSIDE RECORDS SUMMARY | 2025-08-17 13:31 | XMS_ITS | Clinical Summary ---
Author Organization [facility] Address [address] [place], [place] [address] Care Team Providers Care Water Resource Specialist Name Role Phone Zayda Harper Primary Care Provider [phone] Allergies No known active allergies Medications MedicationSigDispense [...] InformationValueDate RecordedSex Assigned at BirthNot on fileLegal XjaRbft62/02/2012 8:07 AM EST Gender IdentityNot on fileSexual OrientationNot on file Last Filed Vital Signs Vital SignReadingTime TakenCommentsBlood Niwmavrc652/15526 6:54 AM EDT Vpsco2467 6:54 AM QWRSmntfeohbke70.7 ??C (96.3 ??F)04/04/2007 6:54 AM EDTRespiratory Oead532304/04/2007 6:54 AM EDTOxygen Eehflkimtd69%04/04/2007 6:54 AM EDTInhaled Oxygen Concentration--Vpswmq32.6 kg (195 lb 6.4 oz)05/16/2007 2:34 PM KIJCpoytq787.4 cm (6' 1 )05/16/2007 2:34 PM EDTBody Mass Index25.78005/16/2007 2:34 PM EDT Plan of Treatment Health MaintenanceDue DateLast DoneCommentsAbdominal Aortic Aneurysm Screening 4Anxiety Skzylhwlg67/16/1972Depression Byjyilvqh97/16/1972Hepatitis C Nwdkzitre01/16/1972DTaP,Tdap,Td Vaccine (1 - Tdap)1973Lipid Screening 1989CT Qtoramwfbgue54/16/1999Cologuard (FIT-DNA)1999Colonoscopy 1999Colorectal Cancer Qiinyvomm72/16/1999Fecal Occult Blood1999 Ibuzbgzwysoko45/16/1999Pneumococcal Vaccine: 50+ (1 of 1 - PCV)2004 Shingrix Vaccine (1 of 2)2004Diabetes Rvqrdqnga64, 04/01/2007, 03/21/2007dvance Directive Yicvkefzwr57/01/2025ovid-19 Vaccine ( - season)2025Influenza Vaccine (#1)2025RSV Vaccine (1 - 1- dose 75+ series)2029 Procedures Procedure NamePriorityDate/TimeAssociated DiagnosisCommentsBASIC METABOLIC PANEL Hrafzcv8204/02/2007 10:53 PM EDT from Last 3 Months or Most Recently Relevant to Health Maintenance Results * (ABNORMAL) BASIC METABOLIC PNL (04/02/2007 10:53 PM EDT)ComponentValueRef RangeTest MethodAnalysis TimePerformed AtPathologist LnfrnkwdsTyitwej766(H)65 - 100 mg/dLCLEVELAND CLINIC MAIN LABORATORYBUN5(L)10 - 25 mg/dLSOUTHWEST [facility] LABORATORYCreatinine0.80.7 - 1.4 mg/dLSOUTHWEST GENERAL [facility]ENTER SJFJSPYNYXQvexmf585639 - 146 mmol/LCBER[facility] LABORATORYPotassium 4.83.5 - 5.0 mmol/LCUNIVERSITY [facility] MAIN CTRAAKQCLYSvferrfd78034 - 110 mmol/L [facility] NTSFBWFBWCVY74902 - 32 mmol/LCBER[facility] LABORATORYAnion Gap60 - 15 mmol/LC[facility] LABORATORYCalcium8.88.5 - 10.5 mg/dLSOUTHWEST GENERAL [facility]ALTH [facility] LABORATORYSpecimen (Source)Anatomical Location / LateralityCollection Method / VolumeCollection TimeReceived Time Blood specimen (specimen)BLOOD SPECIMEN / Ziabwjf1404/02/2007 10:53 PM EDT Narrative Authorizing ProviderResult TypeResult StatusJon D VogelLABORATORYFinal Result Performing OrganizationAddressCity/State/ZIP CodePhone Number [facility] [address] [place] [address] from Last 3 Months or Most Recently Relevant to Health Maintenance Insurance * Guarantor: TAYLOR GOEL TypeRelation to PatientDate of BirthPhone Billing AddressPersonal/IobyukGzlw1955 [phone] (Work) [address] [id number] MemberSubscriberPlan / Payer (Effective 2019-Present)Name:Steven Goel Relation to Subscriber:SpouseName:TIFFANIE GOEL Date of :1959 (Home) [phone] (Work) Address: [address] [id number] Payer ID:Not on file Group ID:[id number] Type:PPO Address: [address] [place] [address] * Guarantor: TAYLOR GOEL TypeRelation to PatientDate of BirthPhone Billing AddressSelf DfxHdgg80 1955 [phone] (Work) [address] [place] [address] Care Teams Team MemberRelationshipSpecialtyStart DateEnd Date Alt-Riddhi, Zayda Hdz [address] [place] [address] PCP - General01/08/07
--- OUTSIDE RECORDS SUMMARY | 2025-08-17 13:31 | XMS_ITS | Clinical Summary ---
Author Organization [facility] Address [address], [address] [place] [address] Care Team Providers Care Presetter Operator Name Role Phone Ovidio Dwyer DO Primary Care Provider [phone] Allergies No known active allergies Medications MedicationSigDispense QuantityRefillsLast FilledStart DateEnd DateStatus therapeutic multivitamin-minerals (THERAGRAN-M) tablet Take 1 tablet by mouth daily.Active [place]-3 Fatty Acids (FISH OIL) 1000 MG CAPS Take 1,000 mg by mouth daily.Active ramipril (ALTACE) 5 MG tablet Take 5 mg by mouth daily.Active Misc Natural Products (OSTEO BI-FLEX ADV DOUBLE ST) TABS Take by mouth. 1500mg with 400iu vitamin D. 100mg 5 loxinActive Active Problems ProblemNoted DateDiagnosed DateAbdominal pain04/08/2013bnormal CT of the nqogdvb0804/08/2013 Family History Medical HistoryRelationNameCommentsLung CancerFatherEmphysemaMotherRelationName StatusCommentsFatherDeceasedMotherAlive Social History Tobacco UseTypesPacks/DayYears UsedDateSmoking Tobacco: FormerSmokeless Tobacco: Never Comments:Pt smoked One pack per week at his most. Alcohol UseStandard Drinks/WeekCommentsYes0 (1 standard drink = 0.6 oz pure alcohol)OccasionallySex and Gender InformationValueDate RecordedSex Assigned at BirthNot on fileLegal HqpSnew6111/17/2012 1:18 PM ESTGender IdentityNot on file Sexual OrientationNot on file Last Filed Vital Signs Vital SignReadingTime TakenCommentsBlood Ciepfpgv282/8409 3:00 PM EDT Dgapc6026 3:00 PM AIIUlndgnlwxcn41.4 ??C (97.6 ??F)07/03/2013 3:00 PM EDTRespiratory Osza915707/03/2013 3:00 PM EDTOxygen Frnqctyndw68%04/22/2013 8:41 AM EDTInhaled Oxygen Concentration--Fqivby87 kg (194 lb)07/03/2013 3:00 PM EDT Ygwtih986.9 cm (6')07/03/2013 3:00 PM EDTBody Mass Index26.31007/03/2013 3:00 PM EDT Plan of Treatment Not on file Care Teams Team MemberRelationshipSpecialtyStart DateEnd Date Ovidio Dwyer DO [facility] - General04/08/13
--- OUTSIDE RECORDS SUMMARY | 2025-08-17 13:43 | XMS_ITS | CCD ---
Author Organization [facility] Care Team Providers Care Manager Medical Name Role Phone REYMUNDO, DR WALTERS Primary [...] VALENZUELA, Marcos Wills Attending Unavailab le Reymundo YOUNG, Ovidio [place] Primary Care Unavail able Rosmery VALENZUELA, Carter Bailey Attending Unavailable Melania MUSIC ENGRAVER-RESTAURANT HOURLY MANAGER, Arely Wheeler Attending U navailable Reymundo YOUNG, Ovidio [place] Primary Care Unavail able Tony VALENZUELA, Taurus Paulino Attending Unavailable Unavailable Primary Care Provider Unavailabl MARISOL Beasley Attending Unavailable MARISOL AL Attending Unavailable MARISOL AL Attending Unavailable MARISOL AL Attending Unavailable Ovidio Dwyer DO Primary Care Provider [phone] Ovidio Dwyer DO Attending Provider Ovidio Dwyer DO Primary Care Provider [phone] Ovidio Dwyer DO Attending Provider [phone] Allergies Allergy ClassificationReported Allergen(s)Allergy TypeDate of OnsetReaction(s) Facility (3 sources)patient allergy list reviewed by nurse or physiciaPropensity to adverse xinvttcqs29-09-4295Dlmdzte:[employer] ([employer]) Other (3 sources)Allergies ReconciledPropensity to adverse reactionsSelect Specialty Hospital - Northwest IndianaSezWho Other (1 source)No Known Medication Allergies; Translations: [No Known Medication Allergies]Propensity to adverse reactions to drug (disorder)[facility] Repository Medications Current Medications MedicationDrug Class(es)DatesSig (Normalized)Sig (Original)atorvastatin 40 mg oral tablet (20 sources)HMG-CoA Reductase InhibitorStart: 58-79-0191ifdttrihbvax (Lipitor) 40 MG tablet 11/08/2024 ActiveStart: 05-11-2024 End: 65-49-1548uyot 1 tablet by mouth once daily in the eveningAtorvastatin 40 mg tablet Active 0 .ROUTE .COMPLEX 90 April 20, 2025 8:28am TAKE 1 TABLET BY MOUTH ONCE A DAY IN THE EVENING X30 DAYS 90 Complies with drug therapyStart: 04-14-2024 End: 54-84-8038tair 1 tablet by mouth once daily in the eveningAtorvastatin 40 mg tablet Discontinued 40 MG PO Every evening April 14, 2024 12:00am May 11, 2024 11:49amtake 1 tablet by mouth once daily in the eveningAtorvastatin Calcium 40 MG 1 tablet Orally Once a day, in evening for 30 days Activelisinopril 5 mg oral tablet (17 sources)Angiotensin Converting Enzyme InhibitorStart: 09-23-2024 End: 74-56-2178eihr 1 tablet by mouth once dailyLisinopril 5 mg tablet Active 5 MG PO Daily 90 90 September 24, 2024 4:18pm Complies with drug therapy predniSONE 20 mg oral tablet (2 sources)Start: 19-31-7545Lzjtlltwsb 20 mg tablet Active 20 MG PO As Directed 12 6 0 July 07, 2025 12:00am 1 tab tid w/ food x 2 days, then bid w/ food x 2 days, then qd w/ food x 2 days Complies with drug therapy Completed/Discontinued Medications MedicationDrug Class(es)DatesSig (Normalized)Sig (Original)baclofen 20 mg oral tablet (2 sources)gamma-Aminobutyric Acid-ergic AgonistStart: 07-07-2025 End: 32-62-7827engq 1 tablet by mouth once daily at bedtimeBaclofen 20 mg tablet Discontinued 20 MG PO Daily at bedtime 21 0 July 07, 2025 12:00am Oc tober 2024 2:47pmramipril 5 mg oral capsule (13 sources)Angiotensin Converting Enzyme InhibitorStart: 04-14-2024 End: 80-04-1615pysz 1 capsule by mouth once dailyRamipril 5 mg capsule Discontinued 0 .ROUTE .COMPLEX 90 3 April 14, 2024 9:36am September 23, 2024 9:57pm TAKE 1 CAPSULE BY MOUTH EVERY DAY FOR 90 DAYSStart: 04-14-2024 End: 31-82-9640jjip 1 capsule by mouth once dailyRamipril 5 [...] metabolism (20 sources)Pure hypercholesterolemia; Translations: [Familial hypercholesterolemia]Onset: 69-80-7064RtefvhdJtctbsyal hypertension (18 sources)Essential hypertension; Translations: [Essential (primary) hypertension]ChronicHyperplasia of prostate (14 sources)Lower urinary tract symptoms due to benign prostatic hypertrophy; Translations: [Benign prostatic hyperplasia with lower urinary tract symptoms] Onset: 05-86-3696YsblqtcViuec acquired deformities (5 sources)Joint contracture of the ankle and/or foot; Translations: [Contracture, right ankle]ChronicOther aftercare (1 source)Other residential (current) drug therapyEpisodicOther and unspecified benign neoplasm (2 sources)Melanocytic nevus of trunk; Translations: [Melanocytic nevi of trunk] 49-03-4387XgpsxpvnYmwme and unspecified benign neoplasm (2 sources)Dermatofibroma of left lower limb; Translations: [Other benign neoplasm of skin of left lower limb,including hip]33-90-2597UdepxhkySmvxf connective tissue disease (5 sources)Calcaneal spur; Translations: [Calcaneal spur, right foot]Episodic Other connective tissue disease (6 sources)Achilles bursitis; Translations: [Achilles tendinitis, left leg] Resolved: 86-70-5158XdbrecgrHcatp connective tissue disease (3 sources)Calcaneal spur of right foot; Translations: [Calcaneal spur, right foot]EpisodicOther connective tissue disease (3 sources)Pain in right foot; Translations: [Pain in right foot]EpisodicOther ear and sense organ disorders (8 sources)Sensorineural hearing loss; Translations: [Unspecified sensorineural hearing loss]ChronicOther ear and sense organ disorders (3 sources)Unilateral sensory hearing loss; Translations: [Sensorineural hearing loss, unilateral]Onset: 14-18-3119JvprdigDwyou ear and sense organ disorders (3 sources)Conductive hearing loss; Translations: [Unspecified conductive hearing loss]Onset: 62-07-7508AtjlgkcJiwbl non-traumatic joint disorders (3 sources)Arthralgia of the ankle and/or foot; Translations: [Pain in right ankle and joints of right foot]EpisodicOther nutritional; endocrine; and metabolic disorders (9 sources)Overweight; Translations: [Overweight]40-21-4425HzvldeseZmtem nutritional; endocrine; and metabolic disorders (1 source)Overweight; Translations: [Overweight]55-66-7178JrmbpdaeEcrkz screening for suspected conditions (not mental disorders or infectious disease) (14 sources)Encounter for screening for malignant neoplasm of prostate; Translations: [Patient encounter status]Onset: 77-50-1858OwsyvlozVymskkt on above:0.749 - 05/2025Other skin disorders (2 sources)Actinic keratosis; Translations: [Actinic keratosis]12-08-2024 EpisodicOther skin disorders (2 sources)Seborrheic keratosis; Translations: [Other seborrheic keratosis] 07-95-3610IxywznufHawat upper respiratory infections (6 sources)Acute maxillary sinusitis; Translations: [Acute maxillary sinusitis, unspecified]Onset: 04-75-1605HjimnxuuXkfbhohy codes; unclassified (8 sources)Pain; Translations: [Pain, unspecified]88-50-3178ChkernfbTramhvbtfwy; intervertebral disc disorders; other back problems (20 sources)Lumbar spondylosis; Translations: [Spondylosis without myelopathy or radiculopathy, lumbar region]ChronicSpondylosis; intervertebral disc disorders; other back problems (5 sources)Low back pain; Translations: [Low back pain]99-71-8213Fvhoxjkv Substance-related disorders (3 sources)Tobacco user; Translations: [Nicotine dependence, cigarettes, in remission]ChronicUnclassified (3 sources)Exposure to acute respiratory syndrome coronavirus 2; Translations: [Contact with and (suspected) exposure to COVID-19]Viral infection (8 sources)Verruca vulgaris; Translations: [Other viral warts]39-87-7621Nqzxwwkd Past or Other Problems Problem ClassificationProblemDateDocumented DateEpisodic/ChronicAcute bronchitis (3 sources)Acute bronchitis; Translations: [Acute bronchitis, unspecified]Onset: 67-85-4234PkaqipjbOvxpiqcdv infection; unspecified site (3 sources)Bacterial infectious disease; Translations: [Bacterial infection, unspecified, in conditions classified elsewhere and of unspecified site]Onset: 28-74-2663PrptvansZauyqrnfnz associated with dizziness or vertigo (3 sources)Benign paroxysmal positional vertigo; Translations: [Benign paroxysmal positional vertigo]Onset: 75-56-5779VsrlzyomLnmjxyzybazeo and screening for infectious disease (4 sources)Encounter for immunization; Translations: [ENCOUNTER FOR IMMUNIZATION]Onset: 19-58-6383LrciwjmmTmpwljh and fatigue (3 sources)Malaise and fatigue; Translations: [Other malaise and fatigue]Onset: 56-75-4846PdavbqvzZyufe connective tissue disease (1 source)Pain in right foot; Translations: [PAIN IN RIGHT FOOT]Onset: 71-44-4451CluttyuqSrury gastrointestinal disorders (3 sources)Flatulence, eructation and gas pain; Translations: [Abdominal distension (gaseous)]Onset: 53-46-3376CchpmpylYqdvw non-traumatic joint disorders (4 sources)Pain in right ankle and joints of right foot; Translations: [PAIN IN RIGHT ANKLE]Onset: 29-39-1236PlpmzfmjIoaou nutritional; endocrine; and metabolic disorders (9 sources)Body mass index 25-29 - overweight; Translations: [Body mass index 29.0-29.9, adult]Onset: 75-81-4191XhnvszvzAastcsic codes; unclassified (3 sources)Postoperative state; Translations: [Other postprocedural status] Onset: 05-43-9834AqtncyprKaubwhiqh and history of mental health and substance abuse codes (3 sources)History of tobacco use; Translations: [Personal history of tobacco use, presenting hazards to health]Onset: 28-10-8997YglhfhfxMsmcvhd and strains (3 sources)Neck sprain; Translations: [Strain of muscle, fascia and tendon at neck level, initial encounter] Resolved: 74-73-3628Idyggfcn Results Test NameValueInterpretationReference RangeFacilityNo Panel Informationon 19-40-3449HJYP HealthcareNo Panel Informationon 46-14-8113OWIO HealthcareNo Panel Informationon 08-69-0625STNZ HealthcareNo Panel Informationon 12-08-2024 [facility] HealthcareProvider Letteron [id number] Letter Ovidio Meléndez [address] [place] [address] Re: Steven Michelle Date of Visit: 06/04/2023 Dear Ovidio Dwyer, Attached you will find the office visit and/or procedure documentation for Steven Michelle. Let me know if you have any questions or concerns. Sincerely, Faith Richardson RN C C Providers: The following document(s) were included in the letter: June 04, 2023 07:28:00 EDT - (06/04/2023) Colonoscopy Procedure NoteNormal [facility] CenterGastro[facility] Consultationon 06-04-2023 Gastroenterology ConsultationThis is a 68-year-old [...] rub Abdomen: Soft, no tenderness+, Bowels sounds+ RENEWALS MANAGER: no focal deficits Recommendations: Will schedule screening colonoscopy .The alternatives , benefits; risks and complications which include but are not limited to bleeding, perforation, infection, missing a lesion and complications of anesthesia explained to the patient . Patient understood and consented for procedure. Electronically signed by Taurus Jimenez MD 06/04/23 07:25 [facility] CenterOperative Reporton [id number] ReportMissing Attachment [id number] Can be viewed in source system Missing Attachment [id number] Can be viewed in source system Missing Attachment [id number] Can be viewed in source system Missing Attachment [id number] Can be viewed in source system Missing Attachment [id number] Can be viewed in source system Missing Attachment 9725631 Can be viewed in source system Missing Attachment [id number] Can be viewed in source system Missing Attachment 9560270 Can be viewed in source system Missing Attachment 4858786 Can be viewed in source system Missing Attachment [id number] Can be viewed in source system Missing Attachment 8688114 Can be viewed in source system Missing Attachment 5996112 Can be viewed in source system Missing Attachment [id number] Can be viewed in source system Missing Attachment 7591491 Can be viewed in source system Missing Attachment 5359949 Can be viewed in source system Missing Attachment 3387701 Can be viewed in source system Missing Attachment [id number] Can be viewed in source system Missing Attachment [id number] Can be viewed in source system Patient: [...] more Type: Cigarettes . Procedure History: Colonoscopy ([id number]).. Problem History: All Problems Hyperlipidemia / [id number] / Confirmed Hypertension / [id number] / Confirmed. Informed Consent: After discussing the [...] Impression and Plan Colonoscopy: Diagnosis: Diverticula, colon (OJF73-QQ K57.30, Discharge, Medical), Internal hemorrhoids (RNH29-SSQ00.8, Discharge, Medical (more content not included)... [facility] HospitalComment on above:Order Comment: Missing Attachment [id number] Can be viewed in source system Missing Attachment [id number] Can be viewed in source system Missing Attachment [id number] Can be viewed in source system Missing Attachment [id number] Can be viewed in source system Missing Attachment 8775015 Can be viewed in source system Missing Attachment [id number] Can be viewed in source system Missing Attachment [id number] Can be viewed in source system Missing Attachment 5096501 Can be viewed in source system Missing Attachment [id number] Can be viewed in source system Missing Attachment [id number] Can be viewed in source system Missing Attachment [id number] Can be viewed in source system Missing Attachment [id number] Can be viewed in source system Missing Attachment [id number] Can be viewed in source system Miss ing Attachment [id number] Can be viewed in source system Missing Attachment 3377515 Can be viewed in source system Missing Attachment [id number] Can be viewed in source system Missing Attachment [id number] Can be viewed in source system Missing Attachment [id number] Can be viewed in source systemTAYL[facility] AUTO DIFFon 35-01-1334KIIH #0.0 103/ulNormal0.0-0.1The [facility] CenterComment on above:Performed By: #### CBC #### [facility] [address] [place] [address] Dr. Amarilis BarriosBasophils/100 WBC (Bld)0.7 %Normal0.2-2.0[facility] Comment on above:Performed By: #### CBC #### [facility] [address] [place] [address] Dr. Amarilis Colon #0.2 103/ulNormal0.0-0.7The [facility] CenterComment on above: Performed By: #### CBC #### [facility] [address] [address] [address] Amarilis Ferreiraosinophils/100 WBC (Bld)3.6 %Normal0.9-7.0The [facility] Comment on above:Performed By: #### CBC #### [facility] [address] [place] [address] Dr. Amarilis Ferreirarythrocyte distribution width (RBC) [Ratio]12.3 %Ubdmhi61.0-15.0 The [facility] CenterComment on above:Performed By: #### CBC #### [facility] [address] [place] [address] Dr. Amarilis BarriosHematocrit (Bld) [Volume fraction]44.0 %Gcjpwc38.0-54.0The [facility] CenterComment on above:Performed By: #### CBC #### [facility] [address] [place] [address] Dr. Amarilis BarriosHemoglobin (Bld) [Mass/Vol]14.8 g/vUZndpac61.0-18.0The [facility] on above:Performed By: #### CBC #### [facility] [address] [address] [address] Amarilis Talbert #0.02 10e3/ulNormal0.00-0.03The [facility] on above:Performed By: #### CBC #### [facility] [address] [place] [address] Dr. Amarilis Talbert %0.4 %Normal0.0-0.5The [facility] on above: Performed By: #### CBC #### [facility] [address] [place] [address] Dr. Amarilis Martinez #2.1 103/ulNormal1.2-3.8The [facility] on above:Performed By: #### CBC #### [facility] [address] [place] [address] Dr. Amarilis Peñahocytes/100 WBC (Bld)36.8 %Rrgovh47.5-60.0The [facility] on above:Performed By: #### CBC #### [facility] [address] [place] [address] Dr. Amarilis PearceUAL DIFF REQNONormalThe [facility] on above: Performed By: #### CBC #### [facility] [address] [place] [address] Dr. Amarilis Mcpherson (RBC) [Entitic mass]31.4 ejCzrxpw03.9-34.0The [facility] on above:Performed By: #### CBC #### [facility] [address] [place] [address] Dr. Amarilis Mcpherson (RBC) [Mass/Vol]33.6 g/iNYsexiq43.9-35.2The [facility] on above:Performed By: #### CBC #### [facility] [address] [place] [address] Dr. Amarilis Mcpherson (RBC) [Entitic vol]93.2 rKEzaqju86.0-94.0The [facility]án HospitalComment on above:Performed By: #### CBC #### [facility] [address] [address] [address] Amarilis Slade #0.4 103/ulNormal0.3-0.8The [facility] CenterComment on above:Performed By: #### CBC #### [facility] [address] [address] [address] Amarilis Irvinocytes/100 WBC (Bld)7.8 %Normal1.7-12.0The [facility] Comment on above:Performed By: #### CBC #### [facility] [address] [address] [address] Amarilis Wren #2.9 103/ulNormal1.4-6.5The [facility] CenterComment on above:Performed By: #### CBC #### [facility] [address] [place] [address] Dr. Amarilis Tannerutrophils/100 WBC (Bld)50.7 %Qpgbya13.0-75.0The [facility] CenterComment on above:Performed By: #### CBC #### [facility] [address] [place] [address] Dr. Amarilis [place] mean volume (Bld) [Entitic vol]9.2 fLCritically low 9.5-13.5The [facility] CenterComment on above:Performed By: #### CBC #### [facility] [address] [place] [address] Dr. Amarilis JuaresT242 103/wmJghupa664-282Uts [facility] CenterComment on above: Performed By: #### CBC #### [facility] [address] [place] [address] Dr. Amarilis BarriosRBC4.72 106/ulNormal4.70-6.10The [facility] CenterComment on above:Performed By: #### CBC #### [facility] [address] [place] [address] Dr. Amarilis BarriosWBC5.6 103/ulNormal4.0-11.0The [facility] HospitalComment on above: Performed By: #### CBC #### [facility] [address] [address] [address] Amarilis BarriosGLYCOHEMOGLOBIN A1Con 30-60-5404PWY RECOMMENDATIONADA THERAPEUTIC TARGET 6.0 - 7.0 ACTION SUGGESTED > 7.0[facility], IncComment on above:Performed By: #### A1C #### [facility] [address] [address] [address] Amarilis BarriosGlucose [Mass/Vol]131 mg/dLNoLouis Stokes Cleveland VA Medical CenterComment on above:Performed By: #### A1C #### [facility] [address] [place] [address] Dr. Amarilis BarriosHbA1c (Bld) [Mass fraction]6.2 %Critically high<=6.0[facility] HospitalComment on above:Performed By: #### A1C #### [facility] [address] [place] [address] Dr. Amarilis BarriosLIPID PROFILEon 23-64-2975HCGV-HDL RATIO NORMSEE [facility] CenterComment on above:Result Comment: 3.3 - 4.4 LOW RISK 4.4 - 7.1 AVERAGE RISK 7.1 - 11.0 MODERATE RISK >11.0 HIGH RISKPerformed By: #### CMP, LIPID, TSH #### [facility] [address] [place] [address] Dr. Amarilis BarriosCholesterol [Mass/Vol]247 mg/dLCritically high<=200The [facility] CenterComment on above:Performed By: #### CMP, LIPID, TSH #### [facility] [address] [place] [address] Dr. Amarilis BarriosCholesterol in HDL [Mass/Vol]57 mg/dLSelect [facility] Specialty [facility], Inc Comment on above:Performed By: #### CMP, LIPID, TSH #### [facility] [address] [place] [address] Dr. Amarilis BarriosCholesterol in LDL [Mass/Vol]173.4 mg/dLSelect [facility] Specialty [facility], IncComment on above:Performed By: #### CMP, LIPID, TSH #### [facility] [address] [address] [address] Amarilis BarriosCholesterol.total/Cholesterol in HDL [Mass ratio]4.3 {ratio} NormalThe [facility] Medical CenterComment on above:Performed By: #### CMP, LIPID, TSH #### [facility] [address] [place] [address] Dr. Amarilis Huber NORMAL> or = 60 mg/dl - LOW CARDIOVASCULAR RISK <40 mg/dl - HIGH CARDIOVASCULAR RISKSelect [facility] Specialty [facility], IncComment on above:Performed By: #### CMP, LIPID, TSH #### [facility] [address] [place] [address] Dr. Amarilis BarriosLDL CALC NORMALSEE BELOWSelect Medical Specialty Hospital - [facility], IncComment on above:Result Comment: <100 mg/dl OPTIMAL 100 - 129 mg/dl NEAR OR ABOVE OPTIMAL 130 - 159 mg/dl BORDERLINE HIGH 160 - 189 mg/dl HIGH >190 mg/dl VERY HIGH Performed By: #### CMP, LIPID, TSH #### [facility] [address] [place] [address] Dr. Amarilis BarriosTriglyceride [Mass/Vol]83 mg/dLNormal<=150The [facility] Comment on above:Performed By: #### CMP, LIPID, TSH #### [facility] [address] [place] [address] Dr. Amarilis BarriosVLDL CALC16.6 mg/dLNoLouis Stokes Cleveland VA Medical CenterComgarden city hospital on above: Performed By: #### CMP, LIPID, TSH #### [facility] [address] [place] [address] Dr. Amarilis BarriosPROF 14(COMP METB)on 62-88-3857Lakhsvf [Mass/Vol]3.5 g/dLNormal 3.5-5.0The [facility] CenterComgarden city hospital on above:Performed By: #### CMP, LIPID, TSH #### [facility] [address] [place] [address] Dr. Amarilis BarriosAlbumin/Globulin [Mass ratio]1.0 {ratio}NormalThe [facility] CenterComment on above:Performed By: #### CMP, LIPID, TSH #### [facility] [address] [address] [address] Amarilis Brock [Catalytic activity/Vol]71 U/ZEuyimb17-241Bco [facility] CenterComment on above:Performed By: #### CMP, LIPID, TSH #### [facility] [address] [address] [address] Amarilis Torres [Catalytic activity/Vol]22 U/ZMgbrlt21-82Ynt [facility] CenterComment on above:Performed By: #### CMP, LIPID, TSH #### [facility] [address] [address] [address] Amarilis Morfin gap [Moles/Vol]7.4 mmol/LNormalThe [facility] CenterComment on above:Performed By: #### CMP, LIPID, TSH #### [facility] [address] [address] [address] Amarilis BarriosAST [Catalytic activity/Vol]17 U/MVrimwf22-16Umx [facility] CenterComment on above:Performed By: #### CMP, LIPID, TSH #### [facility] [address] [address] [address] Amarilis BarriosBilirubin [Mass/Vol]0.8 mg/dLNormal0.2-1.3The [facility] Comment on above:Performed By: #### CMP, LIPID, TSH #### [facility] [address] [address] [address] Amarilis BarriosCalcium [Mass/Vol]8.9 mg/dLNormal8.4-10.2The [facility] Comment on above:Performed By: #### CMP, LIPID, TSH #### [facility] [address] [address] [address] Amarilis BarriosChloride [Moles/Vol]106 mmol/TRvpeeu89-222Gbg [facility] Comment on above:Performed By: #### CMP, LIPID, TSH #### [facility] [address] [address] [address] Amarilis BarriosCO2 [Moles/Vol]30.7 mmol/LCritically high22.0-30.0The [facility] CenterComment on above:Performed By: #### CMP, LIPID, TSH #### [facility] [address] [address] [address] Amarilis BarriosCreatinine [Mass/Vol]0.82 mg/dLNormal0.66-1.25The [facility] CenterComment on above:Performed By: #### CMP, LIPID, TSH #### [facility] [address] [address] [address] Amarilis FerreiraGFR-AF UKRAINIAN>60Normal>=60The [facility] CenterComment on above:Performed By: #### CMP, LIPID, TSH #### [facility] [address] [place] [address] Dr. Amarilis FerreiraGFR-NON AF UKRAINIAN>60Normal>=60The [facility] CenterComment on above:Performed By: #### CMP, LIPID, TSH #### [facility] [address] [address] [address] Amarilis BarriosGlobulin (S) [Mass/Vol]3.6 g/dLNormalThe [facility] CenterComment on above:Performed By: #### CMP, LIPID, TSH #### [facility] [address] [place] [address] Dr. Amarilis BarriosGlucose [Mass/Vol]107 mg/dLCritically aryk87-253Kzg [facility] CenterComment on above:Performed By: #### CMP, LIPID, TSH #### [facility] [address] [address] [address] Amarilis BarriosPotassium [Moles/Vol]5.1 mmol/LCritically high3.4-5.0The [facility] CenterComment on above:Performed By: #### CMP, LIPID, TSH #### [facility] [address] [place] [address] Dr. Amarilis BarriosProtein [Mass/Vol]7.1 g/dLNormal6.1-8.2The [facility] Comment on above:Performed By: #### CMP, LIPID, TSH #### [facility] [address] [address] [address] Amarilis BarriosSodium [Moles/Vol]139 mmol/WWvthav912-021Ynn [facility] Comment on above:Performed By: #### CMP, LIPID, TSH #### [facility] [address] [address] [address] Amarilis BarriosUrea nitrogen [Mass/Vol]20.0 mg/dLNormal9.0-20.0The [facility] CenterComment on above:Performed By: #### CMP, LIPID, TSH #### [facility] [address] [address] [address] Amarilis BarriosUrea nitrogen/Creatinine [Mass ratio]24.4 mg/mgNoLouis Stokes Cleveland VA Medical CenterComment on above:Performed By: #### CMP, LIPID, TSH #### [facility] [address] [place] [address] Dr. Amarilis Vance 69-51-3998QNA6.691 uIU/mLCritically high0.470-4.680The [facility] CenterComment on above:Performed By: #### CMP, LIPID, TSH #### [facility] [address] [address] [address] Amarilis Bradley [facility] BELOWSelect [facility] Specialty [facility] - Boardman, IncComment on above: Result Comment: <0.34 UIU/ml HYPERTHYROID 0.34-5.60 UIU/ml EUTHYROID >5.60 UIU/ml HYPOTHYROIDPerformed By: #### CMP, LIPID, TSH #### [facility] [address] [place] [address] Dr. Amarilis Barrios Vital Signs Date TimeVital SignValuePerforming WrbnnquyfErqysznd94-81-2100 14:41-0400Body yuapyx357.88 cmBenRecensus Ball DO Work Phone: [facility]10-28-2025 14:41-0400 Body mass index (BMI) [Ratio]27.4 kg/d3Ojhzwsel Ball DO Work Phone: [facility]10-28-2025 14:41-0400 Body zxynfyhydpo19.2 [degF]Ovidio Ball DO Work Phone: [phone])[address] [place], [place] 5800510-28-2025 14:41-0400 Body .79 kgBenjamin Ball DO Work Phone: 1([phone])[address] [place], [place] 5800510-28-2025 14:41-0400 Diastolic blood yvfapmpq66 mm[Hg]Ovidio Ball DO Work Phone: [phone])[address] [place], [place] 5800510-28-2025 14:41-0400 Heart rate68 /minBenjamin Ball DO Work Phone: [phone] [place], [place] 5800510-28-2025 14:41-0400 SaO2% (BldA) [Mass fraction]98 %Ovidio Ball DO Work Phone: [phone])[address] [place], [place] 5800510-28-2025 14:41-0400 Systolic blood mm[Hg]Ovidio Ball DO Work Phone: 1([phone])[address] [place], [place] 5800509-30-2025 14:40-0400 Body yavcrm120.88 cmBenjamin Ball DO Work Phone: [phone])[address] [place], [place] 5800509-30-2025 14:40-0400 Body mass index (BMI) [Ratio]27.4 kg/q9Emxowazx Ball DO Work Phone: 1(419)[address] [place], [place] 5800509-30-2025 14:40-0400 Body fadsyr18.79 kgBenjamin Ball DO Work Phone: [phone])[address] [place], [place] 5800509-30-2025 14:40-0400 Diastolic blood hkpoqxnj32 mm[Hg]Ovidio Ball DO Work Phone: 1(419)[address] [place], [place] 5800509-30-2025 14:40-0400 Heart rate62 /minBenjamin Ball DO Work Phone: 1(419)[address] [place], [place] 5800509-30-2025 14:40-0400 Respiratory rate12 /minBenjamin Ball DO Work Phone: 1(419)[address] [place], [place] 5800509-30-2025 14:40-0400 Systolic blood mm[Hg]Ovidio Ball DO Work Phone: [phone]07-28-2025 14:27-0400 Body wpjsyd706.88 cmBenjamin Ball DO Work Phone: [phone]07-28-2025 14:27-0400 Body mass index (BMI) [Ratio]27.1 kg/f6Wvhixvcc Ball DO Work Phone: [phone]07-28-2025 14:27-0400 Body gvdpzi89.88 kgBenjamin Ball DO Work Phone: [phone]07-28-2025 14:27-0400 Diastolic blood lyizrbvf60 mm[Hg]Ovidio Ball DO Work Phone: [phone]07-28-2025 14:27-0400 Heart rate66 /minBenjamin Ball DO Work Phone: [phone]07-28-2025 14:27-0400 Respiratory rate12 /minBenjamin Ball DO Work Phone: [phone]07-28-2025 14:27-0400 Systolic blood meyjrccf836 mm[Hg]Ovidio Ball DO Work Phone: [phone]07-26-2024 11:38-0400 Body xoiloj552.88 cmMarietta [facility] Hospital07-26-2024 11:38-0400Body mass index (BMI) [Ratio]27.2 kg/d4BwgdssufcMarietta Memorial Hospital07-26-2024 11:38-0400Body osvzhx92.22 kgMarietta Memorial Hospital07-26-2024 11:38-0400Diastolic blood vdnugdlj05 mm[Hg][facility] 05-02-2024 11:38-0400Heart rate71 /[facility] 05-02-2024 11:38-0400Respiratory rate12 /[facility] 05-02-2024 11:38-0400Systolic blood mm[Hg][facility]07-13-2023 10:30-0400Body ufjuej436.88 cmBenjamin Ball Other [facility] Other 07-13-2023 10:30-0400Body mass index (BMI) [Ratio] 27.12 kg/s2Gajlfybo Ball Other [facility] Other 07-13-2023 10:30-0400Body opresq86.72 kgBenjamin Ball Other [facility] Other 07-13-2023 10:30-0400Diastolic blood mm[Hg] Ovidio Dwyer Other [facility] Other 07-13-2023 10:30-0400Respiratory rate12 /minBenjamin Ball Other [facility] Other 07-13-2023 10:30-0400Systolic blood wtxoikjy187 mm[Hg] Ovidio Dwyer Other [employer] Other Encounters Encounter DateEncounter TypeCare ProviderFacilityStart: 08-04-2025 End: 65-84-5810wikdygnbaiYcsixbud Ball DO Work Phone: [facility] ClinicStart: 08-04-2025 End: 01-01-6576Mvctavc encounter procedureBenjamin Ball DO-[facility] Work Phone: Start: 07-07-2025 End: 90-07-7816wdsxgmnvjmXrbowdlv Ball DO Work Phone: [facility] Work Phone: Start: 07-07-2025 End: 55-80-8385Jtmfmfv encounter procedureBenjamin Ball DO-[facility] Work Phone: Start: 05-04-2025 End: 32-82-0570uxxkeaiztoAonuktea Ball DO Work Phone: [facility] Work Phone: Start: 05-04-2025 End: 40-56-5537Fwvwfrn encounter procedureBenjamin Ball DO-[facility] Work Phone: Start: 64-32-9964Xpzwlow encounter procedureBenjamin Ball DO Work Phone: [facility]: 03-18-2025 End: 71-02-7094Ffbrvf flowsheetAlison L Radha PA Work Phone: noms TSR DERMStart: 03-18-2025 End: 69-58-1318Bqrufr flowsheetAlison L Radha PA Work Phone: NOZV TSR DERMStart: 03-18-2025 End: 61-24-6568Lfikccy encounter procedureAlison L Radha PA Work Phone: NOMS TSR DERMComment on above:Common wart (Primary Dx); PainStart: 03-18-2025 End: 88-51-5706mfjbbhhxqtAOVFRK L WINANSNot AvailableStart: 02-16-2025 End: 91-84-5094Djyezs flowsheetAlison L Radha PA Work Phone: [facility]SR DERMStart: 02-16-2025 End: 03-76-6887Mwrzmf flowsheetAlison L Radha PA Work Phone: [facility] DERMStart: 02-16-2025 End: 20-95-6551Oypyfvg encounter procedureAlison L Radha PA Work Phone: NOMS TSR DERMComment on above:Common wart (Primary Dx); PainStart: 02-16-2025 End: 06-34-9927lawzpvsaatQQEYJR L WINANSNot AvailableStart: 01-16-2025 End: 98-47-3746Ialgeb flowsheetAlison L Radha PA Work Phone: NOTD TSR DERMStart: 01-16-2025 End: 74-42-7619Axadto flowsheetAlison L Radha PA Work Phone: noMS TSR DERMStart: 01-16-2025 End: 32-61-4688Fzujgns encounter procedureAlison L Radha PA Work Phone: noms TSR DERMComment on above:Common wart (Primary Dx); PainStart: 01-16-2025 End: 95-32-6881paxjlycyrqFFQEOF L WINANSNot AvailableStart: 12-08-2024 End: 23-01-2772Lpdehr outpatient new 30 minutesAlison L Radha PA Work Phone: noms TSR DERMComment on above:Seborrheic keratosis (Primary Dx); Actinic keratosis; Melanocytic nevus of trunk; Dermatofibroma of left lower extremity; Common wart; PainStart: 12-08-2024 End: 65-40-6830jpxnsjgjoiMRCDUC L WINANSNot AvailableStart: 12-08-2024 End: 24-45-4444Ldhmmw flowsheetAlison L Radha PA Work Phone: noms TSR DERMStart: 12-08-2024 End: 94-89-7214Emaivb flowsheetAlison L Radha PA Work Phone: noms TSR DERMStart: 05-02-2024 End: 86-48-1822fmlnavdrgxWzzczzzai [facility] Work Phone: Start: 05-02-2024 End: 05-19-6576Gzwftrf encounter procedureNov[facility] Work Phone: Start: 21-43-4894Evmkhub encounter procedureCleveland Clinic Fairview Hospitaltart: 11-20-2023 End: 62-24-5164sibpmufdrmSkcmdafJoselyn Dasilva MDFacility:[facility] Start: 06-27-2023 End: 78-84-6081sagbqfbfowAbhzhnth Ball Other [employer] Other Start: 07-93-5690Loaukrtsj encounterBenlive BallCARMELG [facility] Medical ClinicStart: 29-50-9376Johqplziq encounterBenlive KnightG [facility] ClinicStart: 06-04-2023 End: 10-81-7374hluivsgsnjSvdgkdvi [facility] [employer] Other Start: 04-25-2023 End: 65-20-2801bzxtprqmaaIvgqgf Liam Melania MUSIC ENGRAVER-CNPFacility:[facility] CenterStart: 04-23-2023 End: 62-52-9788hbntszxdeeFkdazssr Ball Other [employer] Other Start: 81-71-6648Jlqqnnonl encounterBenlive KnightG [facility] ClinicStart: 04-19-2023 End: 29-49-8732smthzwwtnnBvtlruwc Ball Other [employer] Other Start: 29-76-3634Geyrojs encounter procedureBenlive Dwyer Medical ClinicStart: 09-47-1513Tpdmr health examinationBenlive Dwyer Other [employer] Other Start: 94-15-3412Igvilkgax for general adult medical examination without abnormal findingsDR OVIDIO DWYERAshtabula County Medical Centertart: 12-12-2021 End: 42-81-0137vyhncsuekjJL OVIDIO BALLFacility:V2Tatbf: 12-12-2021 End: 57-90-8901Xngyemqjd for general adult medical examination without abnormal findingsDR OVIDIO BALLFacility:A9Zumbm: 08-03-2021 End: 87-33-6667dkmidhelvoZNLVBB ROSSFacility:H1Wcigd: 06-16-2021 End: 38-56-1564zdlzsyhmtqFBSJT HIGHLANDERFacility:G5Ctkba: 12-29-2020 End: 85-84-6738tssssfxncuJY OVIDIO DWYERFacility:H1 Procedures DateProcedureProcedure DetailPerforming ClinicianStart: 52-41-5937BVEQYGDOKEQ SKIN LESIONAlison L Radha PA Work Phone: Start: 97-24-9342EWAOUMNEUFY SKIN LESIONAlison L Radha PA Work Phone: Start: 62-90-3100NGONJNXKTIU SKIN LESIONAlison L Radha PA Work Phone: Start: 12-08-2024 End: 96-96-0918BELBCONCZHA SKIN LESIONAlison L Radha PA Work Phone: Start: 48-56-4570NFJ screeningDR OVIDIO BALLComment on above:Performed By: #### PSASC #### [facility] [address] [place] [address] Dr. Amarilis BarriosStart: 75-91-8954Xsutnpg examination of patientBenlive Dwyer Other Start: 67-50-2728Lkcehnucf for malignant neoplasm of prostateBenlive Dwyer Other Depression screeningBenlive Dwyer Other Screening for malignant neoplasm of prostateBenlive Dwyer Other Plan of Treatment DateCare ActivityDetailAuthorStart: 12-09-2025 End: 93-28-3493Vggpqpi encounter jufayorvy06/04/2026 1:00 PM EST Office Visit [facility] [address] [place] [address] Marisol Al PA [address] [place] [address] [facility] TSR DERMStart: 04-15-2025 End: 38-70-1831Bancdvv encounter ursgosbdw30/09/2025 12:50 PM EDT Office Visit [facility] [address] [place] [address] Marisol Al PA [address] [place] [address] [facility] TSR DERMStart: 03-18-2025 End: 83-24-9193Hrhsmyb encounter procedureNOMS TSR DERMComment on above:Arrived Start: 02-16-2025 End: 81-98-7876Blowcbl encounter procedureNOMS TSR DERMComment on above:Arrived Start: 01-16-2025 End: 02-84-3299Laosdav encounter procedureNOMS TSR DERMComment on above:Arrived Start: 12-08-2024 End: 73-54-3480Abiienb encounter arpuhwxnm26/03/2025 2:40 PM EST Office Visit [facility] [address] [place] [address] Marisol Al, PA [address] [place], [place] [id number] ArrivedNOMS TSR DERMComment on above:ArrivedComprehensive metabolic 1999 panel - Serum or [facility] Comprehensive metabolic 1999 panel - Serum or [facility] HospitalMR Lumbar spine WO [facility] HospitalPatient EducationLow back pain in adultsTr[facility] Health System [facility] Work Phone: XR Lumbar spine 2 or 3 [facility] Immunizations Immunization DateImmunizationNotesCare FeazypsqLgpdxoxt21-46-9012AKBVU-11 Vaccine Moderna - Documentation Purposes OnlyOvidio Dwyer Other [facility]03-24-2021COVID-19 Vaccine Moderna - Documentation Purposes OnlyBemanda Dwyer Other [facility]02-25-2021COVID-19 Vaccine Moderna - Documentation Purposes OnlyBemanda Dwyer Other [facility]09-30-2017diphtheria, tetanus toxoids and acellular pertussis vaccine, unspecified formulation Ovidio Dwyer Other [facility] Payers DatePayer CategoryPayerPolicy [id number] Private Health [id number] [id number] [id number] [id number]-[id number] 2.16.840.1.234269.3.57[id number] 2.840.1.882322.3.57[id number] 2.16.840.1.833677.3.57[id number] 2..840.1.593810.3.57[id number] 2.16.840.1.991911.3.57[id number] 2.16.840.1.456692.3.57[id number] 2.16.840.1.250480.3.57[id number] 2.16.840.1.084989.3.57[id number] 2.16.840.1.401245.3.57[id number] 2.16.840.1.97[id number] 2.0.1.921951.3.579.2.593 [id number] 2.840.1.2[id number] 2.840.1.733953.19 Social History DateTypeDetailFacilityStart: 12-08-2024 End: 72-05-9211Gpt Assigned At [facility] Other Start: 19-06-5972Zas Assigned At [facility] HospitalTobacco smoking status NHISTobacco smoking consumption unknownNOMS HealthcareStart: 30-92-2446Rls assigned at [facility]dwellNot on fileNOMS HealthcareStart: 90-53-8505Yoguqvq smoking status NHISNever smoked tobaccoNOMS HealthcareStart: 08-42-3107Drnonqa use and exposureSmokeless tobacco non-user NOMS HealthcareStart: 12-08-2024 End: 95-40-4306Lywamig of Social functionNOMS HealthcareSexMale (finding) [facility] Clinical Notes 06-16-2021 to 07-07-2025 Note Date & EufuXipjUfzurwrb24-20-8340 Evaluation note* Diagnosis Onset Date Resolution Status Admit Date Low back pain acuteSeptember 2024 2:07pmLumbar spondylosisacuteSeptember 2024 2:07pmLow back painacuteOctober 2024 2:29pmLumbosacral spondylosis with radiculopathyacuteOctober 2024 2:29pm [facility] Work Phone: 1(705) 641-170307-28-2025 Evaluation note* Diagnosis Onset Date Resolution Status Admit Date Hypercholesterolemia acuteJuly 2024 2:03pmHypertensionacuteJuly 2024 2:03pmLumbar spondylosisacuteJuly 2024 2:03pmMedicare annual wellness visit, subsequent acuteJuly 2024 2:03pmOverweightacuteJuly 2024 2:03pmScreening PSA (prostate specific antigen)acuteJuly 2024 2:03pmLow back painacute July 07, 2025 2:07pmLumbar spondylosisacuteSept2024 2:07pm [facility] Work Phone: [phone]) 463-115706-11-2025 History of Present illness Narrative* STEFAN Daniels [...] limited to risks of scarring, darker or clinical reimbursement specialist pigmentary changes, recurrence, incomplete removal and infection. [...] Next Visit: 1 month documented in this encounterRusk Rehabilitation CenterWvxxlyydgf45-15-3343 History of Present illness Narrative* STEFAN Daniels [...] limited to risks of scarring, darker or clinical reimbursement specialist pigmentary changes, recurrence, incomplete removal and infection. [...] Next Visit: 1 month documented in this encounterRusk Rehabilitation CenterQkeoycbytr01-02-8757 History of Present illness Narrative* STEFAN Daniels [...] limited to risks of scarring, darker or clinical reimbursement specialist pigmentary changes, recurrence, incomplete removal and infection. [...] Next Visit: 1 month documented in this encounterRusk Rehabilitation CenterFllgjsshce57-36-1640 History of Present illness Narrative* STEFAN Daniels [...] limited to risks of scarring, darker or clinical reimbursement specialist pigmentary changes, recurrence, incomplete removal and infection. [...] limited to risks of scarring, darker or clinical reimbursement specialist pigmentary changes, recurrence, incomplete removal and infection. [...] Next Visit: 1 year documented in this encounterRusk Rehabilitation CenterHcpfqagmcg13-96-2169 Evaluation note* Encounter Date Diagnosis Assessment Notes Treatment Notes Treatment Clinical Notes May, Hyperlipidemia type II (ICD-10 - E78.01) [facility] Other 07-13-2023 Evaluation note* Encounter Date Diagnosis [...] He does have a personal hx of [employer] Other 09-09-2021 NotePROCEDURE: XR ANKLE RT MIN [...] Electronically authenticated by: SINGH OLMOS Date: 2021-06-16 12:49[facility]09-09-2021 NotePROCEDURE: XR ANKLE RT MIN 3 VIEWS, [...] Electronically authenticated by: SINGH OLMOS Date: 2021-06-16 12:49[facility] HospitalEvaluation noteNo MILIBears[facility] Other Evaluation note* Diagnosis Onset Date Resolution Status Benign prostatic hyperplasia with lower urinary tract symptoms acuteHypercholesterolemiaacuteHypertensionacuteLumbar spondylosisacuteMedicare annual wellness visit, initialacuteOverweightacuteScreening PSA (prostate specific antigen)noneactive [facility] Work Phone: Evaluation note* Diagnosis Seborrheic keratosis- Primary Actinic keratosis Melanocytic nevus of trunk Benign neoplasm of skin of trunk, except scrotum Dermatofibroma of left lower extremity Common wart Other specified viral warts Pain Generalized pain documented in this encounter [facility] HealthcareEvaluation note* Diagnosis Common wart- Primary Other specified viral warts Pain Generalized pain documented in this encounter [facility] HealthcareEvaluation note* Diagnosis Common wart- Primary Other specified viral warts Pain Generalized pain documented in this encounter [facility] HealthcareEvaluation note* Diagnosis Common wart- Primary Other specified viral warts Pain Generalized pain documented in this encounter [facility] HealthcareEvaluation note* Diagnosis Onset Date Resolution Status Admit Date Hypercholesterolemia acuteJuly 2024 2:03pmHypertensionacuteJuly 2024 2:03pmLumbar spondylosisacuteJuly 2024 2:03pmMedicare annual wellness visit, subsequent acuteJuly 2024 2:03pmOverweightacuteJuly 2024 2:03pmScreening PSA (prostate specific antigen)acuteJuly 2024 2:03pm [facility] Work Phone: History general Narrative - Reported* Type Description Date Medical History Benign prostatic hyp erplasia with lower urinary tract symptoms, symptom details unspecified Medical HistoryLumbar spondylosisMedical HistoryEssential (primary) hypertension Medical HistoryHyperlipidemia type IIMedical HistoryContracture, right ankle Medical HistoryCalcaneal spur, rightMedical HistorySensorineural hearing loss (SNHL), unspecified lateralitySurgical HistorySIGMOND [id number] GdmpedhSFUSBOBICJA6716 2012Surgical VnshugfXTW6791Jtsimzoqtqnfjks HistorySEE SURGICAL [facility] Other History general Narrative - Reported* Type Description Date Medical History Benign prostatic hyp erplasia with lower urinary tract symptoms, symptom details unspecified Medical HistoryLumbar spondylosisMedical HistoryEssential (primary) hypertension Medical HistoryHyperlipidemia type IIMedical HistoryContracture, right ankle Medical HistoryCalcaneal spur, rightMedical HistorySensorineural hearing loss (SNHL), unspecified lateralitySurgical HistorySIGMOND [id number] YzebrukWBFHHJFRMXW1250 2012Surgical LrcqthfPFE1881Yikuncam HistoryColonoscopy, repeat 5 Hospitalization HistorySEE SURGICAL [facility] Other Reason for referral (narrative)* Reason Referral for screeni ng colonoscopy Diagnosis 1 Encounter for screen ing colonoscopy (Z12.11) Referral Organization [facility] Faviola chase Referring Provider First Name Ovidio Referring Provider Last Name Reymundo Referring Provider Specialty Internal Me dicine Referred Organization [facility] Referred Address [address] [facility],[place],[address] Referred Provider Specialty Gastroentero logy Referral Priority [...] He prefers to be ref erred to [facility] in [place] for his procedure. [facility] Other Reason for referral (narrative)No reason for referral information availableTrinity Health System West Campus Work Phone: Summary Purpose Family History Relationship [...] section and content) DATE CREATED AUTHOR 12/16/[address] [facility] DATE CREATED AUTHOR 'S ORGANIZ ATION 11/22/2023 [facility] DATE CREATED AUTHOR 'S ORGANIZ ATION 03/21/2025 [facility] EPIC REASON FOR VISIT [...] BE BASED ON THE PRIMARY CLINICAL RECORDS. [facility]Better[facility]. provides no warranty or guarantee of the accuracy or completeness of information in this document.
--- NOTE | 2025-08-17 15:34 | P.CN_ITS ---
Consult Note: HPI Data of Consult Patient: new to practice Consult date: 08/17/25 Requesting Physician: Ramonita Aguayo MD Primary Care Provider: Ovidio Dwyer, Consult Narrative Reason for consult: low back, left leg pain Narrative: 70yom who presents for evaluation. notes worsening low back, left leg pain that intensified after yard work. lumbar mri reviewed, shows multilevel moderate to severe stenosis from l2-l5. multilevel facet arthropathy also apparent. has continued in a series of provider directed home exercises >6 weeks, without benefit. uses otc meds as needed. denies adverse med side effects. cc:: CC: Ramonita Aguayo MD Review of Systems ROS Status of ROS 10 or more systems reviewed and unremark able except as noted in history and below Exam Narrative Exam Narrative: Psych-alert and oriented x 3. Attentive and appropriate, constitutionally normal, displays normal mood and affect per situation. There are no obvious deficits in memory, reasoning, or intellect.? Skin-no obvious rashes, bruising, erythema noted to the patient's area of pain.? Extremities- extremities are warm with minimal edema and palpable pulses. Lumbar-tenderness to palpation noted in the lumbar spine and paraspinal musculature. Pain is elicited with flexion, extension, and lateral rotation of the lumbar spine. Range of motion is diminished with these motions. Facet loading maneuvers are positive.? Strength-noted to be unremarkable with the exception of decreased strength rated at 4 out of 5 in left quadriceps femoris, anterior tibialis. Sensory-no notable sensory deficits in the bilateral lower extremities to touch or pinprick in all dermatomal distributions with the exception to decreased sensation to the left L3, 4, 5 dermatomal distribution Coordination remains intact.? Gait remains non-antalgic. Assessment and Plan Assessment and Plan (1) Lumbar stenosis with neurogenic claudication: (2) Lumbar spondylosis: Plan 70yom who presents for evaluation. failed conservative measures, as noted. imaging reviewed, as noted. given symptoms and imaging, prudent to attempt left l3-4, l4-5 tfesi under fluoroscopic guidance. he is in agreement. meds reviewed, no changes. is also planning to discuss surgical options with nsg. follow up after procedure.
== END 2025-08-17 13:29 | disposition home or self-care (01) ==
LOC: PM 13:28
PROVIDERS: PCP Internal Medicine; Visit Provider Anesthesiology
DX: M48.062 Spinal stenosis, lumbar region with neurogenic claudication (principal); M47.816 Spondylosis without myelopathy or radiculopathy, lumbar region
CPT/HCPCS: G0463

== ENCOUNTER 2025-08-24 08:14 | Day surgery (SDC) | payer MEDICARE, SELFPAY ==
--- OUTSIDE RECORDS SUMMARY | 2025-08-24 08:19 | XMS_ITS | CCD ---
Author Organization [facility] Care Team Providers Care Stacker Driver Name Role Phone REYMUNDO, DR WALTERS Primary [...] WALTERS Primary Care Unavailable Ovidio Dwyer Unavailable Unavailable Primary Care Provider UnavailMARISOL Cagle Attending Unavailable MARISOL AL Attending Unavailable MARISOL AL Attending Unavailable MARISOL AL Attending Unavailable vOidio Dwyer DO Primary Care Provider [phone] Ovidio Dwyer DO Attending Provider [phone] Ovidio Dwyer DO Primary Care Provider [phone] Ovidio Dwyer DO Attending Provider [phone] Dede VALENZUELA, Ramonita [place] Attending Unavailable Ovidio Dwyer DO [place] [facility] Unavail able Allergies Allergy ClassificationReported Allergen(s)Allergy TypeDate of OnsetReaction(s) Facility (3 sources)patient allergy list reviewed by nurse or physiciaPropensity to adverse zgutpmpya47-42-9805Znsrpbx:SETiT Other (3 sources)Allergies ReconciledPropensity to adverse reactionsHealthsouth Deaconess Rehabilitation HospitalVenuefox Other (1 source)No Known Medication Allergies; Translations: [No Known Medication Allergies]Propensity to adverse reactions to drug (disorder)[facility] Rep[facility] Medications Current Medications MedicationDrug Class(es)DatesSig (Normalized)Sig (Original)atorvastatin 40 mg oral tablet (20 sources)HMG-CoA Reductase InhibitorStart: 93-62-5487wdjmyfeeyyqp (Lipitor) 40 MG tablet 11/08/2024 ActiveStart: 05-11-2024 End: 04-31-7333mhyq 1 tablet by mouth once daily in the eveningAtorvastatin 40 mg tablet Active 0 .ROUTE .COMPLEX 90 April 20, 2025 8:28am TAKE 1 TABLET BY MOUTH ONCE A DAY IN THE EVENING X30 DAYS 90 Complies with drug therapyStart: 04-14-2024 End: 37-06-7802zzub 1 tablet by mouth once daily in the eveningAtorvastatin 40 mg tablet Discontinued 40 MG PO Every evening April 14, 2024 12:00am May 11, 2024 11:49amtake 1 tablet by mouth once daily in the eveningAtorvastatin Calcium 40 MG 1 tablet Orally Once a day, in evening for 30 days Activelisinopril 5 mg oral tablet (17 sources)Angiotensin Converting Enzyme InhibitorStart: 09-23-2024 End: 13-13-0530tfco 1 tablet by mouth once dailyLisinopril 5 mg tablet Active 5 MG PO Daily 90 90 September 24, 2024 4:18pm Complies with drug therapy predniSONE 20 mg oral tablet (2 sources)Start: 32-46-3202Hrjccquqtf 20 mg tablet Active 20 MG PO As Directed 12 6 July 07, 2025 12:00am 1 tab tid w/ food x 2 days, then bid w/ food x 2 days, then qd w/ food x 2 days Complies with drug therapy Completed/Discontinued Medications MedicationDrug Class(es)DatesSig (Normalized)Sig (Original)baclofen 20 mg oral tablet (2 sources)gamma-Aminobutyric Acid-ergic AgonistStart: 07-07-2025 End: 80-33-3558ydui 1 tablet by mouth once daily at bedtimeBaclofen 20 mg tablet Discontinued 20 MG PO Daily at bedtime July 07, 2025 12:00am Oc tober 2024 2:47pmramipril 5 mg oral capsule (13 sources)Angiotensin Converting Enzyme InhibitorStart: 04-14-2024 End: 76-09-9134cuzk 1 capsule by mouth once dailyRamipril 5 mg capsule Discontinued 0 .ROUTE .COMPLEX 90 3 April 14, 2024 9:36am September 23, 2024 9:57pm TAKE 1 CAPSULE BY MOUTH EVERY DAY FOR 90 DAYSStart: 04-14-2024 End: 43-86-4955xyyc 1 capsule by mouth once dailyRamipril 5 [...] metabolism (20 sources)Pure hypercholesterolemia; Translations: [Familial hypercholesterolemia]Onset: 01-54-4304JgtjruvPtdytshep hypertension (18 sources)Essential hypertension; Translations: [Essential (primary) hypertension]ChronicHyperplasia of prostate (14 sources)Lower urinary tract symptoms due to benign prostatic hypertrophy; Translations: [Benign prostatic hyperplasia with lower urinary tract symptoms] Onset: 92-85-7112NyyrvbgBpkwm acquired deformities (5 sources)Joint contracture of the ankle and/or foot; Translations: [Contracture, right ankle]ChronicOther aftercare (1 source)Other quality control assessor (current) drug therapyEpisodicOther and unspecified benign neoplasm (2 sources)Melanocytic nevus of trunk; Translations: [Melanocytic nevi of trunk] 30-64-6746ErcwawuvYxgkv and unspecified benign neoplasm (2 sources)Dermatofibroma of left lower limb; Translations: [Other benign neoplasm of skin of left lower limb,including hip]14-67-5118SzhujjwsIpwhk connective tissue disease (5 sources)Calcaneal spur; Translations: [Calcaneal spur, right foot]Episodic Other connective tissue disease (6 sources)Achilles bursitis; Translations: [Achilles tendinitis, left leg] Resolved: 25-55-1608MqaqzfalEeyaj connective tissue disease (3 sources)Calcaneal spur of right foot; Translations: [Calcaneal spur, right foot]EpisodicOther connective tissue disease (3 sources)Pain in right foot; Translations: [Pain in right foot]EpisodicOther ear and sense organ disorders (8 sources)Sensorineural hearing loss; Translations: [Unspecified sensorineural hearing loss]ChronicOther ear and sense organ disorders (3 sources)Unilateral sensory hearing loss; Translations: [Sensorineural hearing loss, unilateral]Onset: 38-05-1130PvhcgxuAbaat ear and sense organ disorders (3 sources)Conductive hearing loss; Translations: [Unspecified conductive hearing loss]Onset: 91-21-9596ByprrieUuiiz non-traumatic joint disorders (3 sources)Arthralgia of the ankle and/or foot; Translations: [Pain in right ankle and joints of right foot]EpisodicOther nutritional; endocrine; and metabolic disorders (9 sources)Overweight; Translations: [Overweight]22-42-1068SicimnnfMiwwf nutritional; endocrine; and metabolic disorders (1 source)Overweight; Translations: [Overweight]37-37-0274EahwdiadXugmf screening for suspected conditions (not mental disorders or infectious disease) (14 sources)Encounter for screening for malignant neoplasm of prostate; Translations: [Patient encounter status]Onset: 25-13-7257IhexfbhiXljmoyh on above:0.749 - 8Other skin disorders (2 sources)Actinic keratosis; Translations: [Actinic keratosis]12-08-2024 EpisodicOther skin disorders (2 sources)Seborrheic keratosis; Translations: [Other seborrheic keratosis] 75-31-5605VifmkqcrQydpt upper respiratory infections (6 sources)Acute maxillary sinusitis; Translations: [Acute maxillary sinusitis, unspecified]Onset: 60-40-4677CqadodtoWxeoggtj codes; unclassified (8 sources)Pain; Translations: [Pain, unspecified]93-83-6139GoiswbwnGkhmdayutqq; intervertebral disc disorders; other back problems (20 sources)Lumbar spondylosis; Translations: [Spondylosis without myelopathy or radiculopathy, lumbar region]ChronicSpondylosis; intervertebral disc disorders; other back problems (5 sources)Low back pain; Translations: [Low back pain]27-81-3360Yisrwyay Substance-related disorders (3 sources)Tobacco user; Translations: [Nicotine dependence, cigarettes, in remission]ChronicUnclassified (3 sources)Exposure to acute respiratory syndrome coronavirus 2; Translations: [Contact with and (suspected) exposure to COVID-19]Viral infection (8 sources)Verruca vulgaris; Translations: [Other viral warts]59-29-0395Lmjkiwhi Past or Other Problems Problem ClassificationProblemDateDocumented DateEpisodic/ChronicAcute bronchitis (3 sources)Acute bronchitis; Translations: [Acute bronchitis, unspecified]Onset: 25-58-8586IoyutpurWpfsshwcc infection; unspecified site (3 sources)Bacterial infectious disease; Translations: [Bacterial infection, unspecified, in conditions classified elsewhere and of unspecified site]Onset: 83-71-3919TrgmikdnXraddziqxd associated with dizziness or vertigo (3 sources)Benign paroxysmal positional vertigo; Translations: [Benign paroxysmal positional vertigo]Onset: 92-99-4083XgcygupvUsxbomvmxttpt and screening for infectious disease (4 sources)Encounter for immunization; Translations: [ENCOUNTER FOR IMMUNIZATION]Onset: 79-33-1784UtezcxrqIqniuej and fatigue (3 sources)Malaise and fatigue; Translations: [Other malaise and fatigue]Onset: 17-87-7265WreqrqlcFhasj connective tissue disease (1 source)Pain in right foot; Translations: [PAIN IN RIGHT FOOT]Onset: 01-79-8328TqraohogUlmcj gastrointestinal disorders (3 sources)Flatulence, eructation and gas pain; Translations: [Abdominal distension (gaseous)]Onset: 60-47-7012RpnyujklHfxva non-traumatic joint disorders (4 sources)Pain in right ankle and joints of right foot; Translations: [PAIN IN RIGHT ANKLE]Onset: 10-80-4037SnlkpyphMqepm nutritional; endocrine; and metabolic disorders (9 sources)Body mass index 25-29 - overweight; Translations: [Body mass index 29.0-29.9, adult]Onset: 21-48-1126HiesfezlMkiossor codes; unclassified (3 sources)Postoperative state; Translations: [Other postprocedural status] Onset: 05-30-8075HghvtjxjPkojjtgvf and history of mental health and substance abuse codes (3 sources)History of tobacco use; Translations: [Personal history of tobacco use, presenting hazards to health]Onset: 55-17-9046UhnssgusImhpfko and strains (3 sources)Neck sprain; Translations: [Strain of muscle, fascia and tendon at neck level, initial encounter] Resolved: 77-36-2027Hajxraou Results Test NameValueInterpretationReference RangeFacilityNo Panel Informationon [id number] HealthcareNo Panel Informationon [id number] HealthcareNo Panel Informationon [id number] HealthcareNo Panel Informationon 12-08-2024 [facility] HealthcareCBC AUTO DIFFon [id number] #0.0 103/ulNormal 0.0-0.1The [facility] HamiltonComment on above:Performed By: #### CBC #### [facility] [address] [address] [address] Amarilis BarriosBasophils/100 WBC (Bld)0.7 %Normal0.2-2.0The [facility] Comment on above:Performed By: #### CBC #### [facility] [address] [address] [address] Amarilis Colon #0.2 103/ulNormal0.0-0.7The [facility] HamiltonComment on above: Performed By: #### CBC #### [facility] [address] [address] [address] Amarilis Ferreiraosinophils/100 WBC (Bld)3.6 %Normal0.9-7.0The [facility] Comment on above:Performed By: #### CBC #### [facility] [address] [address] [address] Amarilis Ferreirarythrocyte distribution width (RBC) [Ratio]12.3 %Elohmj08.0-15.0 The [facility] HamiltonComment on above:Performed By: #### CBC #### [facility] [address] [address] [address] Amarilis BarriosHematocrit (Bld) [Volume fraction]44.0 %Srtgvr48.0-54.0The [facility] HamiltonComment on above:Performed By: #### CBC #### [facility] [address] [place] [address] Dr. Amarilis BarriosHemoglobin (Bld) [Mass/Vol]14.8 g/qQPrdpsf69.0-18.0The [facility] HamiltonComment on above:Performed By: #### CBC #### [facility] [address] [place] [address] Dr. Amarilis Talbert #0.02 10e3/ulNormal0.00-0.03The [facility] HamiltonComment on above:Performed By: #### CBC #### [facility] [address] [place] [address] Dr. Amarilis Talbert %0.4 %Normal0.0-0.5The [facility] on above: Performed By: #### CBC #### [facility] [address] [place] [address] Dr. Amarilis Martinez #2.1 103/ulNormal1.2-3.8The [facility] HamiltonComment on above:Performed By: #### CBC #### [facility] [address] [place] [address] Dr. Amarilis Peñahocytes/100 WBC (Bld)36.8 %Jguqsd39.5-60.0The [facility] HamiltonComkalkaska memorial health center on above:Performed By: #### CBC #### [facility] [address] [place] [address] Dr. Amarilis PearceUAL DIFF REQNONormalThe [facility] HamiltonComment on above: Performed By: #### CBC #### [facility] [address] [place] [address] Dr. Amarilis Mcpherson (RBC) [Entitic mass]31.4 cmHcugrf12.9-34.0The [facility] HamiltonComment on above:Performed By: #### CBC #### [facility] [address] [place] [address] Dr. Amarilis Mcpherson (RBC) [Mass/Vol]33.6 g/dKUwnstb21.9-35.2The [facility] HamiltonComment on above:Performed By: #### CBC #### [facility] [address] [address] [address] Amarilis McphersonV (RBC) [Entitic vol]93.2 oMTolset34.0-94.0The [facility] HamiltonComment on above:Performed By: #### CBC #### [facility] [address] [address] [address] Amarilis Slade #0.4 103/ulNormal0.3-0.8The [facility] HamiltonComment on above:Performed By: #### CBC #### [facility] [address] [place] [address] Dr. Amarilis Irvinocytes/100 WBC (Bld)7.8 %Normal1.7-12.0The [facility] on above:Performed By: #### CBC #### [facility] [address] [place] [address] Dr. Amarilis Wren #2.9 103/ulNormal1.4-6.5The [facility] HamiltonComment on above:Performed By: #### CBC #### [facility] [address] [place] [address] Dr. Amarilis Tannerutrophils/100 WBC (Bld)50.7 %Bjipun12.0-75.0The [facility] HamiltonComment on above:Performed By: #### CBC #### [facility] [address] [place] [address] Dr. Amarilis Millerlet mean volume (Bld) [Entitic vol]9.2 fLCritically low 9.5-13.5The [facility] HamiltonComment on above:Performed By: #### CBC #### [facility] [address] [place] [address] Dr. Amarilis BarriosPLT242 103/jmZabcta658-833Ard [facility] HamiltonComment on above: Performed By: #### CBC #### [facility] [address] [place] [address] Dr. Amarilis BarriosRBC4.72 106/ulNormal4.70-6.10The [facility] HamiltonComment on above:Performed By: #### CBC #### [facility] [address] [address] [address] Amarilis BarriosWBC5.6 103/ulNormal4.0-11.0The [facility] on above: Performed By: #### CBC #### [facility] [address] [address] [address] Amarilis BarriosGLYCOHEMOGLOBIN A1Con 53-21-3903VMY RECOMMENDATIONADA THERAPEUTIC TARGET 6.0 - 7.0 ACTION SUGGESTED > 7.0NoSelect Medical Cleveland Clinic Rehabilitation Hospital, Edwin ShawComment on above:Performed By: #### A1C #### [facility] [address] [address] [address] Amarilis BarriosGlucose [Mass/Vol]131 mg/dLNoSelect Medical Cleveland Clinic Rehabilitation Hospital, Edwin ShawComment on above:Performed By: #### A1C #### [facility] [address] [place] [address] Dr. Amarilis BarriosHbA1c (Bld) [Mass fraction]6.2 %Critically high<=6.0[facility]orial Health SystemComment on above:Performed By: #### A1C #### [facility] [address] [address] [address] Amarilis ZhangID PROFILEon 04-96-4955FMHA-HDL RATIO NORMSEE Pike Community HospitalComment on above:Result Comment: 3.3 - 4.4 LOW RISK 4.4 - 7.1 AVERAGE RISK 7.1 - 11.0 MODERATE RISK >11.0 HIGH RISKPerformed By: #### CMP, LIPID, TSH #### [facility] [address] [address] [address] Amarilis BarriosCholesterol [Mass/Vol]247 mg/dLCritically high<=200The [facility] HamiltonComkalkaska memorial health center on above:Performed By: #### CMP, LIPID, TSH #### [facility] [address] [address] [address] Amarilis BarriosCholesterol in HDL [Mass/Vol]57 mg/dLGood Samaritan Hospital Comment on above:Performed By: #### CMP, LIPID, TSH #### [facility] [address] [address] [address] Amarilis Aguilaresterol in LDL [Mass/Vol]173.4 mg/dLGood Samaritan HospitalComment on above:Performed By: #### CMP, LIPID, TSH #### [facility] [address] [address] [address] Amarilis Wilson.total/Cholesterol in HDL [Mass ratio]4.3 {ratio} NormalThe [facility] HamiltonComment on above:Performed By: #### CMP, LIPID, TSH #### [facility] [address] [address] [address] Amarilis Huber NORMAL> or = 60 mg/dl - LOW CARDIOVASCULAR RISK <40 mg/dl - HIGH CARDIOVASCULAR RISKGood Samaritan HospitalComment on above:Performed By: #### CMP, LIPID, TSH #### [facility] [address] [address] [address] Amarilis BarriosLDL CALC NORMALSEE BELOWNoSelect Medical Cleveland Clinic Rehabilitation Hospital, Edwin ShawComment on above:Result Comment: <100 mg/dl OPTIMAL 100 - 129 mg/dl NEAR OR ABOVE OPTIMAL 130 - 159 mg/dl BORDERLINE HIGH 160 - 189 mg/dl HIGH >190 mg/dl VERY HIGH Performed By: #### CMP, LIPID, TSH #### [facility] [address] [address] [address] Amarilis BarriosTriglyceride [Mass/Vol]83 mg/dLNormal<=150[facility] Comment on above:Performed By: #### CMP, LIPID, TSH #### [facility] [address] [place] [address] Dr. Amarilis BarriosVLDL CALC16.6 mg/dLNoSelect Medical [facility] Clinic Rehabilitation Hospital, Edwin ShawComment on above: Performed By: #### CMP, LIPID, TSH #### [facility] [address] [place] [address] Dr. Amarilis BarriosPROKellen 14(COMP METB)on 47-91-5806Ouncfef [Mass/Vol]3.5 g/dLNormal 3.5-5.0[facility] SystemComment on above:Performed By: #### CMP, LIPID, TSH #### [facility] [address] [address] [address] Amarilis BarriosAlbumin/Globulin [Mass ratio]1.0 {ratio}NormalThe [facility] HamiltonComment on above:Performed By: #### CMP, LIPID, TSH #### [facility] [address] [address] [address] Amarilis ArshadP [Catalytic activity/Vol]71 U/AJspvtf51-706Bpi [facility] HamiltonComment on above:Performed By: #### CMP, LIPID, TSH #### [facility] [address] [address] [address] Amarilis Torres [Catalytic activity/Vol]22 U/DIibilm36-68Igy [facility] HamiltonComment on above:Performed By: #### CMP, LIPID, TSH #### [facility] [address] [address] [address] Amarilis Kenton gap [Moles/Vol]7.4 mmol/LNormalThe [facility] HamiltonComment on above:Performed By: #### CMP, LIPID, TSH #### [facility] [address] [address] [address] Amarilis BarriosAST [Catalytic activity/Vol]17 U/BHqftpm70-40Hsx [facility] HamiltonComment on above:Performed By: #### CMP, LIPID, TSH #### [facility] [address] [address] [address] Amarilis BarriosBilirubin [Mass/Vol]0.8 mg/dLNormal0.2-1.3The [facility] Comment on above:Performed By: #### CMP, LIPID, TSH #### [facility] [address] [address] [address] Amarilis BarriosCalcium [Mass/Vol]8.9 mg/dLNormal8.4-10.2The [facility] Comment on above:Performed By: #### CMP, LIPID, TSH #### [facility] [address] [address] [address] Amarilis BarriosChloride [Moles/Vol]106 mmol/XLwietl70-344Lml [facility] Comment on above:Performed By: #### CMP, LIPID, TSH #### [facility] [address] [address] [address] Amarilis BarriosCO2 [Moles/Vol]30.7 mmol/LCritically high22.0-30.0The [facility] HamiltonComment on above:Performed By: #### CMP, LIPID, TSH #### [facility] [address] [address] [address] Amarliis BarriosCreatinine [Mass/Vol]0.82 mg/dLNormal0.66-1.25The [facility] HamiltonComment on above:Performed By: #### CMP, LIPID, TSH #### [facility] [address] [place] [address] Dr. Amarilis FerreiraGFR-AF SOMALI>60Normal>=60The [facility] HamiltonComment on above:Performed By: #### CMP, LIPID, TSH #### [facility] [address] [address] [address] Amarilis FerreiraGFR-NON AF SOMALI>60Normal>=60The [facility] HamiltonComment on above:Performed By: #### CMP, LIPID, TSH #### [facility] [address] [place] [address] Dr. Amarilis BarriosGlobulin (S) [Mass/Vol]3.6 g/dLNormalThe [facility] HamiltonComment on above:Performed By: #### CMP, LIPID, TSH #### [facility] [address] [address] [address] Amarilis BarriosGlucose [Mass/Vol]107 mg/dLCritically vgxk72-504Awt [facility] HamiltonComment on above:Performed By: #### CMP, LIPID, TSH #### [facility] [address] [place] [address] Dr. Amarilis BarriosPotassium [Moles/Vol]5.1 mmol/LCritically high3.4-5.0The [facility] HamiltonComment on above:Performed By: #### CMP, LIPID, TSH #### [facility] [address] [place] [address] Dr. Amarilis BarriosProtein [Mass/Vol]7.1 g/dLNormal6.1-8.2The [facility] Comment on above:Performed By: #### CMP, LIPID, TSH #### [facility] [address] [address] [address] Amarilis BarriosSodium [Moles/Vol]139 mmol/ZLjnwfv732-186Sli [facility] Comment on above:Performed By: #### CMP, LIPID, TSH #### [facility] [address] [place] [address] Dr. Amarilis BarriosUrea nitrogen [Mass/Vol]20.0 mg/dLNormal9.0-20.0The [facility] HamiltonComment on above:Performed By: #### CMP, LIPID, TSH #### [facility] [address] [place] [address] Dr. Amarilis Malin nitrogen/Creatinine [Mass ratio]24.4 mg/mgNoSelect Medical Cleveland Clinic Rehabilitation Hospital, Edwin ShawComment on above:Performed By: #### CMP, LIPID, TSH #### [facility] [address] [place] [address] Dr. Amarilis Vance 28-95-7949EQA8.691 uIU/mLCritically high0.470-4.680The [facility] HamiltonComment on above:Performed By: #### CMP, LIPID, TSH #### [facility] [address] [place] [address] Dr. Amarilis Bradley [facility] BELOWGood Samaritan HospitalComment on above: Result Comment: <0.34 UIU/ml HYPERTHYROID 0.34-5.60 UIU/ml EUTHYROID >5.60 UIU/ml HYPOTHYROIDPerformed By: #### CMP, LIPID, TSH #### [facility] [address] [place] [address] Dr. Amarilis Barrios Vital Signs Date TimeVital SignValuePerforming EofkmkzoqJwlxeajp44-36-8747 14:41-0400Body uolvtv395.88 cmBenjamin Ball DO Work Phone: [facility]10-28-2025 14:41-0400 Body mass index (BMI) [Ratio]27.4 kg/z7Blhbkqgm Ball DO Work Phone: [phone] [place], [place] 624[address]10-28-2025 14:41-0400 Body ppofranapvd50.2 [degF]Ovidio Ball DO Work Phone: [phone] [place], [place] 624[address]10-28-2025 14:41-0400 Body .79 kgBenjamin Ball DO Work Phone: [phone] [place], [place] 624[address]10-28-2025 14:41-0400 Diastolic blood pycyksdb10 mm[Hg]Ovidio Ball DO Work Phone: [phone] [place], [place] 624[address]10-28-2025 14:41-0400 Heart rate68 /minBenjamin Ball DO Work Phone: [phone] [place], [place] 624[address]10-28-2025 14:41-0400 SaO2% (BldA) [Mass fraction]98 %Ovidio Ball DO Work Phone: [phone] [place], [place] 624[address]10-28-2025 14:41-0400 Systolic blood dajxwsox179 mm[Hg]Ovidio Ball DO Work Phone: [phone] [place], [place] 624[address]09-30-2025 14:40-0400 Body wytzva765.88 cmBenjamin Ball DO Work Phone: [phone] [place], [place] 624[address]09-30-2025 14:40-0400 Body mass index (BMI) [Ratio]27.4 kg/t0Knybouwv Ball DO Work Phone: [phone] [place], [place] 624[address]09-30-2025 14:40-0400 Body ksicgr13.79 kgBenjamin Ball DO Work Phone: [phone] [place], [place] 624[address]09-30-2025 14:40-0400 Diastolic blood abbgfozl97 mm[Hg]Ovidio Ball DO Work Phone: [phone])[address] [place], [place] 624[address]09-30-2025 14:40-0400 Heart rate62 /minBenjamin Ball DO Work Phone: [phone] [place], [place] 624[address]09-30-2025 14:40-0400 Respiratory rate12 /minBenjamin Ball DO Work Phone: [phone] [place], [place] 624[address]09-30-2025 14:40-0400 Systolic blood wtiwcryf503 mm[Hg]Ovidio Ball DO Work Phone: [phone])[facility] [place], [place] 8125207-28-2025 14:27-0400 Body .88 cmBenjamin Ball DO Work Phone: [phone] [place], [place] 624[address]07-28-2025 14:27-0400 Body mass index (BMI) [Ratio]27.1 kg/v5Lufbvtox Ball DO Work Phone: [phone])[address] [place], [place] 624[address]07-28-2025 14:27-0400 Body dpnies05.88 kgBenjamin Ball DO Work Phone: [phone] [address] [place], [place] 6241907-28-2025 14:27-0400 Diastolic blood mm[Hg]Ovidio Ball DO Work Phone: 1(779)[address] [place], [place] 6241907-28-2025 14:27-0400 Heart rate66 /minBenjamin Ball DO Work Phone: 1(943)[facility] [place], [place] 8125207-28-2025 14:27-0400 Respiratory rate12 /minBenjamin Ball DO Work Phone: 1(012)[address] [place], [place] 6241907-28-2025 14:27-0400 Systolic blood xszijyly707 mm[Hg]Ovidio Ball DO Work Phone: 1(419)[address] [place], [place] 6241907-26-2024 11:38-0400 Body .88 [facility]-26-2024 11:38-0400Body mass index (BMI) [Ratio]27.2 kg/s8CvhbwhofaMercy Health Willard Hospital07-26-2024 11:38-0400Body ujylux34.22 kgMercy Health [facility] Hospital07-26-2024 11:38-0400Diastolic blood sgendvrq51 mm[Hg][facility] 05-02-2024 11:38-0400Heart rate71 /[facility] 05-02-2024 11:38-0400Respiratory rate12 /[facility] 05-02-2024 11:38-0400Systolic blood xoxxgsdw517 mm[Hg][facility]07-13-2023 10:30-0400Body wliumt311.88 cmBemanda Dwyer Other [employer] Other 07-13-2023 10:30-0400Body mass index (BMI) [Ratio] 27.12 kg/h6Qdsiozdhmanda Dwyer Other [employer] Other 07-13-2023 10:30-0400Body .72 kgBemanda Dwyer Other [employer] Other 07-13-2023 10:30-0400Diastolic blood wixjojvm01 mm[Hg] Ovidio Dwyer Other [facility] Other 07-13-2023 10:30-0400Respiratory rate12 /Petr Dwyer Other [facility] Other 07-13-2023 10:30-0400Systolic blood eroiwfeu847 mm[Hg] Ovidio Dwyer Other [employer] Other Encounters Encounter DateEncounter TypeCare ProviderFacilityStart: 08-17-2025 End: 84-82-0858aodptuyejmArclikbEleni Aguayo MDFacility:TIMUR Sampson Start: 08-04-2025 End: 37-59-1528pyxvhsjgliMaicjqas Ball DO Work Phone: -[facility]Start: 08-04-2025 End: 92-38-1194Twzvvbf encounter procedureBenlive Dwyer DO-[facility] Work Phone: Start: 07-07-2025 End: 86-64-7148awrtbjmcjfAbdyvdit Ball DO Work Phone: [facility] Work Phone: Start: 07-07-2025 End: 21-33-1567Yhmfllv encounter procedureBenjamin Ball DO-[facility] Work Phone: Start: 05-04-2025 End: 79-37-2278zvlfoqiyoePnpvxgek Ball DO Work Phone: [facility] Work Phone: Start: 05-04-2025 End: 37-22-4223Flpvjgd encounter procedureBenjamin Ball DO-[facility] Work Phone: Start: 11-65-0552Zcbslzx encounter procedureBenjamin Ball DO Work Phone: [facility] Hospitaltart: 03-18-2025 End: 57-13-2163Oygagg flowsheetAlison L Radha PA Work Phone: [facility] DERMStart: 03-18-2025 End: 65-60-8492Tqgkhj flowsheetAlison L Radha PA Work Phone: [facility] DERMStart: 03-18-2025 End: 79-64-9531Aukylrf encounter procedureAlison L Radha PA Work Phone: noms TSR DERMComment on above:Common wart (Primary Dx); PainStart: 03-18-2025 End: 84-84-2078putoyenvlmHNHJNB L WINANSNot AvailableStart: 02-16-2025 End: 22-35-5651Nzncih flowsheetAlison L Radha PA Work Phone: [facility] DERMStart: 02-16-2025 End: 21-90-1706Errpgi flowsheetAlison L Radha PA Work Phone: [facility] DERMStart: 02-16-2025 End: 27-14-7184Lfmvqiu encounter procedureAlison L Radha PA Work Phone: noms TSR DERMComment on above:Common wart (Primary Dx); PainStart: 02-16-2025 End: 92-96-6812qdeoyxslipKPDXDL L WINANSNot AvailableStart: 01-16-2025 End: 98-70-3445Lcdwha flowsheetAlison L Radha PA Work Phone: [facility] DERMStart: 01-16-2025 End: 30-54-1162Maazgo flowsheetAlison L Radha PA Work Phone: [facility] DERMStart: 01-16-2025 End: 41-34-1172Uewdqqo encounter procedureAlison L Radha PA Work Phone: noms TSR DERMComment on above:Common wart (Primary Dx); PainStart: 01-16-2025 End: 93-40-4231kqtmygfcnhKDVGRX L WINANSNot AvailableStart: 12-08-2024 End: 33-35-9859Kamfff outpatient new 30 minutesAlison L Radha PA Work Phone: noms TSR DERMComment on above:Seborrheic keratosis (Primary Dx); Actinic keratosis; Melanocytic nevus of trunk; Dermatofibroma of left lower extremity; Common wart; PainStart: 12-08-2024 End: 21-00-1322gubommoprlDGRNCN L WINANSNot AvailableStart: 12-08-2024 End: 66-06-1691Srbiys flowsheetAlison L Radha PA Work Phone: [facility] DERMStart: 12-08-2024 End: 42-16-6385Hajoqs flowsheetAlison L Radha PA Work Phone: [facility] DERMStart: 05-02-2024 End: 81-40-3380zxmknlliitNbjtxykrbMercy Health – [facility] Work Phone: Start: 05-02-2024 End: 70-39-6495Laogcor encounter procedureColumb[facility] Work Phone: Start: 99-61-9302Jgrmjeb encounter procedureMercy Health Allen Hospitaltart: 06-27-2023 End: 28-16-1625muxrhhiavhMvjekjaz Ball Other [employer] Other Start: 22-47-6738Imyhzootx encounterBenjamin BallFPG [facility] Medical ClinicStart: 06-04-2023 End: 28-02-3932umitkzrhdxXclfrnnx Ball Other noClearGist [employer] Other Start: 23-53-2206Mcfacoiei encounterBenjamin BallFPG [facility] Medical ClinicStart: 04-23-2023 End: 37-54-1336howlasxomdLpduuusn Ball Other [employer] Other Start: 03-34-7139Lfpixbfvb encounterBenjamin BallFPG [facility] Medical ClinicStart: 04-19-2023 End: 29-70-6154zplikrdfylVkejptoo Ball Other [employer] Other Start: 64-47-0668Msrwrlf encounter procedureBenjamin BallFPG [facility] Medical ClinicStart: 61-41-1977Fyiyd health examinationBenjamin Ball Other noClearGist [employer] Other Start: 46-29-9406Fcjqzxrzu for general adult medical examination without abnormal findingsDR OVIDIO DWYERCleveland Clinic [facility] Hospitaltart: 12-12-2021 End: 02-96-6023kavsejmqtqDG OVIDIO BALLFacility:O5Puxpi: 12-12-2021 End: 90-54-8308Tsetmbvuu for general adult medical examination without abnormal findingsDR OVIDIO BALLFacility:C7Zjrmo: 08-03-2021 End: 99-59-5395zcewrzercoGWJTLR ROSSFacility:M6Zfkrw: 06-16-2021 End: 27-76-5486ijeeatrwqrVIDBA SPOONER HEALTHFacility:M9Qhjzn: 12-29-2020 End: 79-53-6246gdvcimegqdBW OVIDIO DWYERFacility:H1 Procedures DateProcedureProcedure DetailPerforming ClinicianStart: 81-43-9400QJXKQDAYXSG SKIN LESIONAlison [place] Radha AVILES Work Phone: Start: 47-44-2779SISIQKQTJOT SKIN LESIONAlison L Radha PA Work Phone: Start: 68-68-8128EFDXVVVMAGQ SKIN LESIONAlison L Radha PA Work Phone: Start: 12-08-2024 End: 41-19-9759RTWKVOASRQV SKIN LESIONAlison L Radha PA Work Phone: Start: 37-14-2672UHF screeningDR OVIDIO BALLComment on above:Performed By: #### PSASC #### [facility] [address] [place] [address] Dr. Amarilis BarriosStart: 76-90-0263Gtshnct examination of patientBenlive Dwyer Other Start: 41-03-2091Mtdfkhtlo for malignant neoplasm of prostateBenjamin Ball Other Depression screeningBenjacrystal Ball Other Screening for malignant neoplasm of prostateBenjamin Ball Other Plan of Treatment DateCare ActivityDetailAuthorStart: 12-09-2025 End: 90-95-9201Jdwnejt encounter aneircmoe51/04/2026 1:00 PM EST Office Visit [facility] [address] [place] [address] Marisol Al, STEFAN [address] [place] [address] [facility] DERMStart: 04-15-2025 End: 12-47-8589Vuhugee encounter cwhsclinu88/09/2025 12:50 PM EDT Office Visit [facility] [address] [place] [address] Marisol Al PA [address] [place] [address] [facility] DERMStart: 03-18-2025 End: 97-50-9357Hvtyvrc encounter procedureNOMS TSR DERMComment on above:Arrived Start: 02-16-2025 End: 80-37-1829Seghtkn encounter procedureNOMS TSR DERMComment on above:Arrived Start: 01-16-2025 End: 42-06-3765Hpocaav encounter procedureNOMS TSR DERMComment on above:Arrived Start: 12-08-2024 End: 03-50-7199Rwkigam encounter ycbbalxgm53/03/2025 2:40 PM EST Office Visit [facility] [address] [place] [address] Marisol Al PA [address] [place] [address] ArrivedNOMS TSR DERMComment on above:ArrivedComprehensive metabolic 1999 panel - Serum or [facility] Comprehensive metabolic 1999 panel - Serum or [facility] HospitalMR Lumbar spine WO [facility] HospitalPatient EducationLow back pain in adultsMercy Health St. [facility] Work Phone: XR Lumbar spine 2 or 3 [facility] Immunizations Immunization DateImmunizationNotesCare FiimfizeLzdeiqml52-44-1211YBBBF-66 Vaccine Moderna - Documentation Purposes OnlyOvidio Dwyer Other [facility]03-24-2021COVID-19 Vaccine Moderna - Documentation Purposes OnlyOvidio Dwyer Other [facility]02-25-2021COVID-19 Vaccine Moderna - Documentation Purposes OnlyOvidio Dwyer Other [facility]09-30-2017diphtheria, tetanus toxoids and acellular pertussis vaccine, unspecified formulation Ovidio Dwyer Other [facility] Payers DatePayer CategoryPayerPolicy [id number] [id number] Health [id number] 2022Medicare [id number] [id number] [id number] 2.0.1.998911.3.57[id number] 2..[id number] 2.0.1.948215.3.57[id number] 2.[id number] 2.0.1.209388.3.57[id number] 2.0.1.142724.3.57[id number] 2.840.1.5[id number] 2.840.1.836709.3.579.2.593Unknown [id number] [id number] 2.16.840.1.505261.19 Social History DateTypeDetailFacilityStart: 12-08-2024 End: 47-39-8326Zvb Assigned At [facility] [employer] Other Start: 75-18-6798Weg Assigned At [facility] HospitalTobacco smoking status NHISTobacco smoking consumption unknownNOMS HealthcareStart: 63-77-1581Kcc assigned at birthNot on fileSHRINERS HOSPITALS FOR CHILDREN HealthcareStart: 24-96-6893Ybhmaxp smoking status NHISNever smoked tobaccoNOSC HealthcareStart: 99-27-1206Bhushuu use and exposureSmokeless tobacco non-user [facility] HealthcareStart: 12-08-2024 End: 00-58-2100Zhcflyy of Social functionNOMS HealthcareSexMale (finding) [facility] Clinical Notes 06-16-2021 to 07-07-2025 Note Date & JaurUciuCjkwfhqh90-61-2329 Evaluation note* Diagnosis Onset Date Resolution Status Admit Date Low back pain acuteSeptember 2024 2:07pmLumbar spondylosisacuteSeptember 2024 2:07pmLow back painacuteOctober 2024 2:29pmLumbosacral spondylosis with radiculopathyacuteOctober 2024 2:29pm [facility] Work Phone: 1(556) 158-785207-28-2025 Evaluation note* Diagnosis Onset Date Resolution Status Admit Date Hypercholesterolemia acuteJuly 2024 2:03pmHypertensionacuteJuly 2024 2:03pmLumbar spondylosisacuteJuly 2024 2:03pmMedicare annual wellness visit, subsequent acuteJuly 2024 2:03pmOverweightacuteJuly 2024 2:03pmScreening PSA (prostate specific antigen)acuteJuly 2024 2:03pmLow back painacute Amanda 2024 2:07pmLumbar spondylosisacuteSeptember 2024 2:07pm [facility] Work Phone: 1(355) 227-132106-11-2025 History of Present illness Narrative* STEFAN Daniels [...] limited to risks of scarring, darker or rounder hand pigmentary changes, recurrence, incomplete removal and infection. [...] Next Visit: 1 month documented in this encounterSHRINERS HOSPITALS FOR CHILDREN Vxvtlclkja60-09-9301 History of Present illness Narrative* STEFAN Daniels [...] limited to risks of scarring, darker or rounder hand pigmentary changes, recurrence, incomplete removal and infection. [...] Next Visit: 1 month documented in this encounterMissouri Southern HealthcareDozkrsjhej53-62-5759 History of Present illness Narrative* STEFAN Daniels [...] limited to risks of scarring, darker or rounder hand pigmentary changes, recurrence, incomplete removal and infection. [...] Next Visit: 1 month documented in this encounterMissouri Southern HealthcareEizbiznjbg10-98-3471 History of Present illness Narrative* STEFAN Daniels [...] limited to risks of scarring, darker or rounder hand pigmentary changes, recurrence, incomplete removal and infection. [...] limited to risks of scarring, darker or rounder hand pigmentary changes, recurrence, incomplete removal and infection. [...] Next Visit: 1 year documented in this encounterMissouri Southern HealthcareCugkmvdhtc90-57-9473 Evaluation note* Encounter Date Diagnosis Assessment Notes Treatment Notes Treatment Clinical Notes May, Hyperlipidemia type II (ICD-10 - E78.01) [facility] Other 07-13-2023 Evaluation note* Encounter Date Diagnosis [...] He does have a personal hx of Celsion Other 09-09-2021 NotePROCEDURE: XR ANKLE RT MIN [...] Electronically authenticated by: SINGH OLMOS Date: 2021-06-16 12:49[facility]09-[facility] NotePROCEDURE: XR ANKLE RT MIN 3 VIEWS, [...] Electronically authenticated by: SINGH OLMOS Date: 2021-06-16 12:49[facility] SystemEvaluation noteNo [facility] [employer] Other Evaluation note* Diagnosis Onset Date Resolution Status Benign prostatic hyperplasia with lower urinary tract symptoms acuteHypercholesterolemiaacuteHypertensionacuteLumbar spondylosisacuteMedicare annual wellness visit, initialacuteOverweightacuteScreening PSA (prostate specific antigen)noneactive [facility] Work Phone: Evaluation note* Diagnosis Seborrheic keratosis- Primary Actinic keratosis Melanocytic nevus of trunk Benign neoplasm of skin of trunk, except scrotum Dermatofibroma of left lower extremity Common wart Other specified viral warts Pain Generalized pain documented in this encounter [facility] HealthcareEvaluation note* Diagnosis Common wart- Primary Other specified viral warts Pain Generalized pain documented in this encounter [facility] HealthcareEvaluation note* Diagnosis Common wart- Primary Other specified viral warts Pain Generalized pain documented in this encounter [facility] HealthcareEvaluation note* Diagnosis Common wart- Primary Other specified viral warts Pain Generalized pain documented in this encounter [facility] HealthcareEvaluation note* Diagnosis Onset Date Resolution Status Admit Date Hypercholesterolemia acuteJuly 2024 2:03pmHypertensionacuteJuly 2024 2:03pmLumbar spondylosisacuteJuly 2024 2:03pmMedicare annual wellness visit, subsequent acuteJuly 2024 2:03pmOverweightacuteJuly 2024 2:03pmScreening PSA (prostate specific antigen)acuteJuly 2024 2:03pm [facility] Work Phone: History general Narrative - Reported* Type Description Date Medical History Benign prostatic hyp erplasia with lower urinary tract symptoms, symptom details unspecified Medical HistoryLumbar spondylosisMedical HistoryEssential (primary) hypertension Medical HistoryHyperlipidemia type IIMedical HistoryContracture, right ankle Medical HistoryCalcaneal spur, rightMedical HistorySensorineural hearing loss (SNHL), unspecified lateralitySurgical HistorySIGMOND [id number] BypetguUOKFOYFYPHH1411 2012Surgical VkjxddkDYP8103Geuwsanmgtcjgpn HistorySEE SURGICAL [facility] Other History general Narrative - Reported* Type Description Date Medical History Benign prostatic hyp erplasia with lower urinary tract symptoms, symptom details unspecified Medical HistoryLumbar spondylosisMedical HistoryEssential (primary) hypertension Medical HistoryHyperlipidemia type IIMedical HistoryContracture, right ankle Medical HistoryCalcaneal spur, rightMedical HistorySensorineural hearing loss (SNHL), unspecified lateralitySurgical HistorySIGMOND TMJITRPOW9845Ewavlkwt RrcyusjIAYHQPTWFCF6491 2012Surgical BpbhrrwKPI7986Khtdtxml HistoryColonoscopy, repeat 5 yrs05/2023Hospitalization HistorySEE SURGICAL [facility] Other Reason for referral (narrative)* Reason Referral for screeni ng colonoscopy Diagnosis 1 Encounter for screen ing colonoscopy (Z12.11) Referral Organization [facility] rena Referring Provider First Name Ovidio Referring Provider Last Name Reymundo Referring Provider Specialty Internal Me dicine Referred Organization [facility] Referred Address [address] [place] [address] ,[place], [place],[address] Referred Provider Specialty Gastroentero logy Referral Priority [...] He prefers to be ref erred to [facility] in [place] for his procedure. [facility] Other Reason for referral (narrative)No reason for referral information availableMercy Health St. [facility]S [facility] Work Phone: Summary Purpose Family History No Family History Records Found Relationship Condition Age at Onset Recorded Date/T dominick father Family history of lung cancer Unknown Malignant neoplasmUnknownfamily memberMalignant neoplasmUnknownmotherMalignant neoplasm of breastUnknown Advance Directives No Advanced Directives Records Found Advance Directive Response Recorded Date/ Time Advance [...] section and content) DATE CREATED AUTHOR 12/16/2021 [facility] DATE CREATED AUTHOR AUTHOR'S ORGANIZ ATION 03/21/2025 [facility] DATE CREATED AUTHOR AUTHOR'S ORGANIZ ATION 08/20/[address] [facility] REASON FOR VISIT (unrecogniz ed section and [...] July 07, 2025 End: July 07lizzie Dwyer DOAttending ProviderActiveStart: July 07, 2025 End: July 07, 2025 Team Status: Active Member Role/Relationship Status Christiana Dwyer DO Primary Care Provider Active Team Status: Inactive Member Role/Relationship Status Dates Ovidio Dwyer DO Primary Care Provider Active Start: July 07, 2025 End: July 07lizzie Dwyer DOAttending ProviderActiveStart: July 07, 2025 End: July 07, 2025 Team Status: Inactive Member Role/Relationship Status Dates Ovidio Dwyer DO Primary Care Provider Active Start: August 04, 2025 End: August 04lizzie Dwyer DOAttending ProviderActiveStart: August 04, 2025 End: August [...] BE BASED ON THE PRIMARY CLINICAL RECORDS. [employer] [facility]. provides no warranty or guarantee of the accuracy or completeness of information in this document.
[2025-08-24 08:33] VITALS: BP 156/84; PULSE 87; TEMP 36.5; O2SAT 98
[2025-08-24 08:53] VITALS: BP 168/88; PULSE 76; O2SAT 100
[2025-08-24] MEDS: IOHEXOL 240 MG/ML - 10 ML VIAL 24 MG INJ (08:55)
[2025-08-24] MEDS: BUPIVACAINE HCL 0.25% PF 25 MG/10 ML VIAL INJ (08:55)
[2025-08-24] MEDS: 0.9 % SODIUM CHLORIDE 10 ML SYRINGE - SALINE FLUSH INJ (08:55)
[2025-08-24] MEDS: DEXAMETHASONE SOD PHOS 10 MG/ML VIAL INJ (08:55)
[2025-08-24 08:56] VITALS: BP 159/86; PULSE 77; O2SAT 97
[2025-08-24] MEDS: LIDOCAINE HCL 2% 400 MG/20 ML MDV 3 ML INJ (08:56)
--- NOTE | 2025-08-24 09:01 | P.ON_ITS ---
Date of procedure: 08/24/25 Pre-op diagnosis: Pain due to lumbar stenosis with neurogenic claudication Post-op diagnosis: same as pre-op Procedure: Procedure: Left L3-4, L4-5 transforaminal epidural steroid injection Medications: Bupivacaine 0.25% 2cc, lidocaine 2% 1cc, dexamethasone 10mg The patient was seen and examined in the preoperative holding area.? Informed consent was obtained and placed on the chart.? Patient was brought to the medical procedure unit and placed in the prone position where a timeout was completed verifying the correct patient, procedure site, position, and planned special equipment using sterile aseptic technique.? Under direct fluoroscopic visualization a 25-gauge Quincke tipped spinal needle was advanced to the designated neural foramen where contrast dye was injected to show adequate spread.? The needle was inserted at level left L3-4. There was no evidence of vascular or adverse uptake.? Epidural spread was appreciated.? The above- mentioned injectate was then placed in a 1.5 mL aliquot preceded by negative aspiration.? The needle was removed. The needle was inserted and the procedure repeated at level left L4-5.? The surgery site was covered.? Patient was taken to the postprocedural recovery area and monitored for an appropriate length of time before found suitable for discharge in the accompaniment of a responsible adult. Anesthesia: Local Surgeon: Ramonita Aguayo Pathology: none sent Condition: stable Disposition: no change
== END 2025-08-24 09:07 | disposition home or self-care (01) ==
LOC: SURGOUT 08:15
PROVIDERS: PCP Internal Medicine; Visit Provider Anesthesiology
DX: M48.062 Spinal stenosis, lumbar region with neurogenic claudication (principal)
CPT/HCPCS: 64483; 64484; J0665; J1100; Q9966

== ENCOUNTER 2025-09-09 12:50 | Outpatient (OUT) | payer MEDICARE, SELFPAY ==
--- OUTSIDE RECORDS SUMMARY | 2025-09-09 12:56 | XMS_ITS | Clinical Summary ---
Author Organization [facility] Address [address] [place] [address] Care Team Providers Care Rotor Balancer Name Role Phone Unavailable Primary Care Provider [...] RecordedSex Assigned at BirthNot on file Legal CjrFkwe7212/20/2022 6:35 PM EDTGender IdentityNot on fileSexual Orientation Not on file Plan of Treatment DateTypeDepartmentCare Team (Latest Contact Info)Feheovgposo42/05/2025 11:10 AM ESTOffice Visit [facility] [address] [place] [address] Marisol Garcia PA [address] [facility] [address] [place] [address] 12/09/2025 1:00 PM ESTOffice Visit [facility] [address] [place] [address] Marisol Garcia PA [address] [facility] [address] [place] [address] Insurance
--- OUTSIDE RECORDS SUMMARY | 2025-09-09 12:56 | XMS_ITS | Clinical Summary ---
Author Organization [facility] Address [address] [place] [address] Care Team Providers Care Inspector And Tester Name Role Phone Alt-Zayda Hannon Primary Care Provider [phone] Ramonita Aguayo MD Unavailable [phone] Allergies No known active allergies Medications MedicationSigDispense QuantityRefillsLast FilledStart DateEnd DateStatus ramipril (ALTACE) 5 mg ORAL Cap Take one(1) tablet daily.ctive Active Problems ProblemNoted DateDiagnosed DateEssential hypertension, benignOther forms of migraine Overview (03/21/2007): vestibular Diverticulosis of colon (without mention of hemorrhage) Overview (03/21/2007): diverticulitis Other and unspecified disc disorder of lumbar region Overview (03/21/2007): low back pain Encounters DateTypeDepartmentCare WwpeIzhittxrltl01/20/2025Transcribe Orders Referring Physician [address] [place] [phone] Ramonita Aguayo MD Spinal stenosis of lumbar region with neurogenic claudication (Primary Dx) 08/25/2025bstract Neurology [address] [place], [place] [id number] Jake Vazquez MD from Last 3 Months Family History Medical HistoryRelationCommentsCancerFatherlung cancer, brain tumor?Relation StatusCommentsFather Social History Tobacco UseTypesPacks/DayYears UsedDateSmoking Tobacco: FormerCigarettes0.510 10/08/1979 - 10/08/1989Alcohol UseStandard Drinks/WeekCommentsYes0 (1 standard drink = 0.6 oz pure alcohol)6 per yearSex and Gender InformationValueDate RecordedSex Assigned at BirthNot on fileLegal VulIatd07/02/2012 8:07 AM EST Gender IdentityNot on fileSexual OrientationNot on file Last Filed Vital Signs Vital SignReadingTime TakenCommentsBlood Wptgbjqh048/58698 6:54 AM EDT Berig076604/04/2007 6:54 AM ZEBCpocyskvjsg58.7 ??C (96.3 ??F)04/04/2007 6:54 AM EDTRespiratory Dyuf671704/04/2007 6:54 AM EDTOxygen Rauofmzwpe96%04/04/2007 6:54 AM EDTInhaled Oxygen Concentration--Ndawoi18.6 kg (195 lb 6.4 oz)05/16/2007 2:34 PM HKVTsfkte138.4 cm (6' 1 )05/16/2007 2:34 PM EDTBody Mass Index25.78005/16/2007 2:34 PM EDT Plan of Treatment DateTypeDepartmentCare Team (Latest Contact Info)Itxyfxhadmd04/13/2026 11:00 AM ESTOffice Visit [facility] [address] [place] [address] Jake Vazquez MD [address] [facility] [address] [place] [id number] stuffHealth MaintenanceDue DateLast DoneCommentsAbdominal Aortic Aneurysm Qvmbsxxda1954Anxiety Vwbxzogzg53/16/1972Depression Giiciqwsc46/16/1972 Hepatitis C Yjpqvfwfk44/16/1972DTaP,Tdap,Td Vaccine (1 - Tdap)1973Lipid Kualwnkbd02/16/1989CT Nznzdwjtaker02/16/1999Cologuard (FIT-DNA)1999 Cmzjesaaxnq79/16/1999Colorectal Cancer Niduglhha00/16/1999Fecal Occult Blood 03/23/19995375Wybsdbrnrerdx23/16/1999Pneumococcal Vaccine: 50+ (1 of 1 - PCV) 2004Shingrix Vaccine (1 of 2)2004Diabetes Xtiipgvcn43/26/2010 04/02/2007, 04/01/2007, 03/21/2007dvance Directive Gdwoojjmtl97/01/2025ovid-19 Vaccine (1 - 2024- season)2025Influenza Vaccine (#1)2025RSV Vaccine (1 - 1-dose 75+ series)2029 Procedures Procedure NamePriorityDate/TimeAssociated DiagnosisCommentsEXTERNAL IMAGING 08/27/2025 11:19 AM EST EXTERNAL GPRQHMF5708/27/2025 11:17 AM EST MRI OUTSIDE CD DICOM JMBLKG2208/07/2025 XR OUTSIDE CD DICOM PUSAYG3407/07/2025 BASIC METABOLIC UMYUIKdvghui90/26/2007 10:53 PM EDT from Last 3 Months or Most Recently Relevant to Health Maintenance Results * EXTERNAL IMAGING (08/27/2025 11:19 AM EST)Anatomical RegionLateralityModality Other Narrative Authorizing ProviderResult TypeResult StatusExternal Provider PA-CRADIOLOGYFinal Result * EXTERNAL IMAGING (08/27/2025 11:17 AM EST)Anatomical RegionLateralityModality Other Narrative Authorizing ProviderResult TypeResult StatusExternal Provider PA-CRADIOLOGYFinal Result * OT-MR LUMBAR SPINE WO CON IMPORT (08/07/2025)Anatomical RegionLaterality ModalityOtherSpecimen (Source)Anatomical Location / LateralityCollection Method / VolumeCollection TimeReceived Time08/07/2025 Narrative 08/25/2025 11:09 PM EST Images were obtained outside of [facility] Procedure Note Provider, [facility] [place] - 08/25/2025 Images were obtained outside of [facility] Authorizing ProviderResult TypeResult StatusCcf ProviderMRIFinal Result * OT-XR LUMBAR SPINE 2-3V IMPORT (07/07/2025)Anatomical RegionLateralityModality OtherSpecimen (Source)Anatomical Location / LateralityCollection Method / VolumeCollection TimeReceived Time07/07/2025 Narrative 08/25/2025 11:10 PM EST Images were obtained outside of [facility] Procedure Note Provider, [facility] [place] - 08/25/2025 Images were obtained outside of [facility] Authorizing ProviderResult TypeResult StatusCcf ProviderRADIOLOGYFinal Result * (ABNORMAL) BASIC METABOLIC PNL (04/02/2007 10:53 PM EDT)ComponentValueRef RangeTest MethodAnalysis TimePerformed AtPathologist JjscdobkhRwfiitf572(H)65 - 100 mg/dLST. ELIZABETH HOSPITAL LABORATORYBUN5(L)10 - 25 mg/dLST. ELIZABETH HOSPITAL LABORATORYCreatinine0.80.7 - 1.4 mg/dLST. ELIZABETH [facility] SJOGIWMYNFDrmyzp627335 - 146 mmol/LCBUCYRUS COMMUNITY [facility] MAIN LABORATORYPotassium 4.83.5 - 5.0 mmol/LCBUCYRUS COMMUNITY HOSPITAL MAIN LGGUFSYRHQRfkvtnos92328 - 110 mmol/L [facility] LGCXDPBGKJFW19659 - 32 mmol/LCBUCYRUS COMMUNITY HOSPITAL MAIN LABORATORYAnion Gap60 - 15 mmol/LCREGIONAL MEDICAL CENTER LABORATORYCalcium8.88.5 - 10.5 mg/dLST. ELIZABETH [facility]OS[facility]ITAL LABORATORYSpecimen (Source)Anatomical Location / LateralityCollection Method / VolumeCollection TimeReceived Time Blood specimen (specimen)BLOOD SPECIMEN / Mvnnfkq0304/02/2007 10:53 PM EDT Narrative Authorizing ProviderResult TypeResult StatusJon D VogelLABORATORYFinal Result Performing OrganizationAddressCity/State/ZIP CodePhone Number [facility] [address] [place] [address] from Last 3 Months or Most Recently Relevant to Health Maintenance Insurance * Guarantor: Steven Goel TypeRelation to PatientDate of BirthPhone Billing AddressPersonal/GmbyfbFpwv1955 [phone] (Work) [address] [place] [address] * Guarantor: LITO GOEL TypeRelation to PatientDate of BirthPhone Billing AddressSelf FvmFfuu89 1955 [phone] (Work) [address] [place] [address] Care Teams Team MemberRelationshipSpecialtyStart DateEnd Date Alt-RiddhiZayda fletcher [address] [place] [address] [place] [phone] PCP - General01/08/07 Ramonita Aguayo MD [address] [place] [address] [address] [place] [address] ReferringPain Yvhkbqffpj89/20/25
--- OUTSIDE RECORDS SUMMARY | 2025-09-09 12:56 | XMS_ITS | Encounter Summary ---
Author Organization [facility] Address [address] [place], [place] [id number] Care Team Providers Care Geodesist Name Role Phone Alt-RiddhiZayda Primary Care Provider [phone] Ramonita Aguayo MD Unavailable [phone] Source Comments In the event this information is protected by the Federal Confidentiality of Alcohol and Drug AbusePatient Records regulations: The Federal rules restrict any use of the information to criminally investigate or prosecute any alcohol or drug abuse patient.[facility] Reason for Referral * Consult, Test, Treat (Routine) - AuthorizedSpecialtyDiagnoses / Procedures Referred By ContactReferred To ContactNeurology Diagnoses Spinal stenosis of lumbar region with neurogenic claudication Procedures [facility] Ramonita Aguayo MD [address] [place] [address] Phone: tel: fax: Referral IDStatusReasonStart DateExpiration DateVisits RequestedVisits [id number] PCP Requested Referral Encounter Details DateTypeDepartmentCare Team (Latest Contact Info)Qsptpssobeg06/20/2025Transcribe Orders Referring Physician [address] [place] [address] Ramonita Aguayo MD [address] [place] [address] Spinal stenosis of lumbar region with neurogenic claudication (Primary Dx) Social History Tobacco UseTypesPacks/DayYears UsedDateSmoking Tobacco: FormerCigarettes0.510 10/08/1979 - 10/08/1989Alcohol UseStandard Drinks/WeekCommentsYes0 (1 standard drink = 0.6 oz pure alcohol)6 per yearSex and Gender InformationValueDate RecordedSex Assigned at BirthNot on fileLegal LttXurt24/02/2012 8:07 AM EST Gender IdentityNot on fileSexual OrientationNot on filedocumented as of this encounter Plan of Treatment DateTypeDepartmentCare Team (Latest Contact Info)Dsbqshhwqfm48/13/2026 11:00 AM ESTOffice Visit [facility] [address] [place] [address] Jake Vazquez MD [address] [facility] [address] [place], [place] [phone] stuffNameTypePriorityAssociated DiagnosesOrder ScheduleCONSULT TO NEUROLOGY ReferralRoutine Spinal stenosis of lumbar region with neurogenic claudication 1 Occurrences starting 08/27/2025 until 08/27/2026documented as of this encounter Visit Diagnoses Diagnosis Spinal stenosis of lumbar region with neurogenic claudication- Primary Spinal stenosis, lumbar region, with neurogenic claudication documented in this encounter Care Teams Team MemberRelationshipSpecialtyStart DateEnd Date Alt-Zayda Hannon [address] [facility] [place] [address] PCP - General01/08/07 Ramonita Aguayo MD [address] [facility] [address] [place] [address] ReferringPain Vvmzmzrfpk33/20/25documented as of this encounter
--- OUTSIDE RECORDS SUMMARY | 2025-09-09 13:02 | XMS_ITS | CCD ---
Author Organization [facility] Care Team Providers Care Oracle Manager Name Role Phone REYMUNDO, DR WALTERS Primary Care Unavailable REQUEST, DR EM LISTED Attending Unavaila ble REQUEST, DR ME LISTED Admitting Unavaila ble REQUEST, DR EM [...] Unavailable Ovidio Dwyer DO Primary Care Provider [phone] Ovidio Dwyer DO Attending Provider [phone] Ovidio Dwyer DO Primary Care Provider [phone] Ovidio Dwyer DO Attending Provider [phone] Dede VALENZUELA, Ramonita [place] Attending Unavailable Ovidio Dwyer DO [place] [facility] Unavail able Allergies Allergy ClassificationReported Allergen(s)Allergy TypeDate of OnsetReaction(s) Facility (3 sources)patient allergy list reviewed by nurse or physiciaPropensity to adverse [id number]:[employer] Other (3 sources)Allergies ReconciledPropensity to adverse reactionsOaklawn Psychiatric CenterPango Other (1 source)No Known Medication Allergies; Translations: [No Known Medication Allergies]Propensity to adverse reactions to drug (disorder)[facility] Medications Current Medications MedicationDrug Class(es)DatesSig (Normalized)Sig (Original)atorvastatin 40 mg oral tablet (20 sources)HMG-CoA Reductase InhibitorStart: 72-04-5484lhozzrbnjrhu (Lipitor) 40 MG tablet 11/08/2024 ActiveStart: 05-11-2024 End: 33-14-1324ywyr 1 tablet by mouth once daily in the eveningAtorvastatin 40 mg tablet Active 0 .ROUTE .COMPLEX 90 April 20, 2025 8:28am TAKE 1 TABLET BY MOUTH ONCE A DAY IN THE EVENING X30 DAYS 90 Complies with drug therapyStart: 04-14-2024 End: 86-72-0751huox 1 tablet by mouth once daily in the eveningAtorvastatin 40 mg tablet Discontinued 40 MG PO Every evening April 14, 2024 12:00am May 11, 2024 11:49amtake 1 tablet by mouth once daily in the eveningAtorvastatin Calcium 40 MG 1 tablet Orally Once a day, in evening for 30 days Activelisinopril 5 mg oral tablet (17 sources)Angiotensin Converting Enzyme InhibitorStart: 09-23-2024 End: 35-52-3659zblt 1 tablet by mouth once dailyLisinopril 5 mg tablet Active 5 MG PO Daily 90 90 September 24, 2024 4:18pm Complies with drug therapy predniSONE 20 mg oral tablet (2 sources)Start: 96-45-2127Kgtkadsgbu 20 mg tablet Active 20 MG PO As Directed 12 6 July 07, 2025 12:00am 1 tab tid w/ food x 2 days, then bid w/ food x 2 days, then qd w/ food x 2 days Complies with drug therapy Completed/Discontinued Medications MedicationDrug Class(es)DatesSig (Normalized)Sig (Original)baclofen 20 mg oral tablet (2 sources)gamma-Aminobutyric Acid-ergic AgonistStart: 07-07-2025 End: 31-00-5443tfns 1 tablet by mouth once daily at bedtimeBaclofen 20 mg tablet Discontinued 20 MG PO Daily at bedtime July 07, 2025 12:00am Oc tober 2024 2:47pmramipril 5 mg oral capsule (13 sources)Angiotensin Converting Enzyme InhibitorStart: 04-14-2024 End: 73-21-9380jhrg 1 capsule by mouth once dailyRamipril 5 mg capsule Discontinued 0 .ROUTE .COMPLEX 90 3 April 14, 2024 9:36am September 23, 2024 9:57pm TAKE 1 CAPSULE BY MOUTH EVERY DAY FOR 90 DAYSStart: 04-14-2024 End: 95-45-3627ukwg 1 capsule by mouth once dailyRamipril 5 [...] metabolism (20 sources)Pure hypercholesterolemia; Translations: [Familial hypercholesterolemia]Onset: 35-80-5680DulgvyhZmxwddspp hypertension (18 sources)Essential hypertension; Translations: [Essential (primary) hypertension]ChronicHyperplasia of prostate (14 sources)Lower urinary tract symptoms due to benign prostatic hypertrophy; Translations: [Benign prostatic hyperplasia with lower urinary tract symptoms] Onset: 65-61-5167SjfbrzwQiawn acquired deformities (5 sources)Joint contracture of the ankle and/or foot; Translations: [Contracture, right ankle]ChronicOther aftercare (1 source)Other longwall foreman (current) drug therapyEpisodicOther and unspecified benign neoplasm (2 sources)Melanocytic nevus of trunk; Translations: [Melanocytic nevi of trunk] 57-68-0816XcpridlxRiklw and unspecified benign neoplasm (2 sources)Dermatofibroma of left lower limb; Translations: [Other benign neoplasm of skin of left lower limb,including hip]37-98-5280YvoodamjZsals connective tissue disease (5 sources)Calcaneal spur; Translations: [Calcaneal spur, right foot]Episodic Other connective tissue disease (6 sources)Achilles bursitis; Translations: [Achilles tendinitis, left leg] Resolved: 78-95-7866GgbhjbssXdzam connective tissue disease (3 sources)Calcaneal spur of right foot; Translations: [Calcaneal spur, right foot]EpisodicOther connective tissue disease (3 sources)Pain in right foot; Translations: [Pain in right foot]EpisodicOther ear and sense organ disorders (8 sources)Sensorineural hearing loss; Translations: [Unspecified sensorineural hearing loss]ChronicOther ear and sense organ disorders (3 sources)Unilateral sensory hearing loss; Translations: [Sensorineural hearing loss, unilateral]Onset: 24-08-1685TuxjwvrEamci ear and sense organ disorders (3 sources)Conductive hearing loss; Translations: [Unspecified conductive hearing loss]Onset: 83-95-4561VpxhvjeKltdj non-traumatic joint disorders (3 sources)Arthralgia of the ankle and/or foot; Translations: [Pain in right ankle and joints of right foot]EpisodicOther nutritional; endocrine; and metabolic disorders (9 sources)Overweight; Translations: [Overweight]44-60-1735EuihxulfHweaf nutritional; endocrine; and metabolic disorders (1 source)Overweight; Translations: [Overweight]69-32-5837BpkpossyBaaro screening for suspected conditions (not mental disorders or infectious disease) (14 sources)Encounter for screening for malignant neoplasm of prostate; Translations: [Patient encounter status]Onset: 60-71-7538UrascjdwAfgitsj on above:0.749 - 8Other skin disorders (2 sources)Actinic keratosis; Translations: [Actinic keratosis]12-08-2024 EpisodicOther skin disorders (2 sources)Seborrheic keratosis; Translations: [Other seborrheic keratosis] 86-25-0534AutsdohzPyjhh upper respiratory infections (6 sources)Acute maxillary sinusitis; Translations: [Acute maxillary sinusitis, unspecified]Onset: 63-79-6550KbitdgyaAaldnvle codes; unclassified (8 sources)Pain; Translations: [Pain, unspecified]01-52-7774PzpihujvFxxfwbcfrlm; intervertebral disc disorders; other back problems (20 sources)Lumbar spondylosis; Translations: [Spondylosis without myelopathy or radiculopathy, lumbar region]ChronicSpondylosis; intervertebral disc disorders; other back problems (5 sources)Low back pain; Translations: [Low back pain]18-97-3691Bssyfesn Substance-related disorders (3 sources)Tobacco user; Translations: [Nicotine dependence, cigarettes, in remission]ChronicUnclassified (3 sources)Exposure to acute respiratory syndrome coronavirus 2; Translations: [Contact with and (suspected) exposure to COVID-19]Viral infection (8 sources)Verruca vulgaris; Translations: [Other viral warts]06-31-5448Qjucsivv Past or Other Problems Problem ClassificationProblemDateDocumented DateEpisodic/ChronicAcute bronchitis (3 sources)Acute bronchitis; Translations: [Acute bronchitis, unspecified]Onset: 21-73-5277VgzdbunhTeqinjzhb infection; unspecified site (3 sources)Bacterial infectious disease; Translations: [Bacterial infection, unspecified, in conditions classified elsewhere and of unspecified site]Onset: 35-66-2664WcfdpiguJlbdxmrrhw associated with dizziness or vertigo (3 sources)Benign paroxysmal positional vertigo; Translations: [Benign paroxysmal positional vertigo]Onset: 21-81-4323YqdletgtKopmdpwrptifz and screening for infectious disease (4 sources)Encounter for immunization; Translations: [ENCOUNTER FOR IMMUNIZATION]Onset: 24-39-1667RsiiziwzEedgjyc and fatigue (3 sources)Malaise and fatigue; Translations: [Other malaise and fatigue]Onset: 78-74-3859WrdkvypgBdzrg connective tissue disease (1 source)Pain in right foot; Translations: [PAIN IN RIGHT FOOT]Onset: 60-92-2463QtmxdgqtQfpjn gastrointestinal disorders (3 sources)Flatulence, eructation and gas pain; Translations: [Abdominal distension (gaseous)]Onset: 96-99-7882RtfppyovYsqjt non-traumatic joint disorders (4 sources)Pain in right ankle and joints of right foot; Translations: [PAIN IN RIGHT ANKLE]Onset: 64-01-8024AetqojorCcnum nutritional; endocrine; and metabolic disorders (9 sources)Body mass index 25-29 - overweight; Translations: [Body mass index 29.0-29.9, adult]Onset: 82-41-3576ZcltxcymKjucuemq codes; unclassified (3 sources)Postoperative state; Translations: [Other postprocedural status] Onset: 91-76-9642UwojjvljRztyhkgeb and history of mental health and substance abuse codes (3 sources)History of tobacco use; Translations: [Personal history of tobacco use, presenting hazards to health]Onset: 88-87-0646ZmztdjdcYseosrj and strains (3 sources)Neck sprain; Translations: [Strain of muscle, fascia and tendon at neck level, initial encounter] Resolved: 70-91-8909Zrpudfsw Results Test NameValueInterpretationReference RangeFacilityNo Panel Informationon 21-62-5058FASK HealthcareNo Panel Informationon 65-23-4400DUTA HealthcareNo Panel Informationon 55-57-1231ESPU HealthcareNo Panel Informationon 12-08-2024 [facility] HealthcareCBC AUTO DIFFon 26-33-8529KJSW #0.0 103/ulNormal 0.0-0.1The TrihealthComment on above:Performed By: #### CBC #### [facility] [address] [address] [address] Amarilis BarriosBasophils/100 WBC (Bld)0.7 %Normal0.2-2.0The [facility] Comment on above:Performed By: #### CBC #### [facility] [address] [address] [address] Amarilis Colon #0.2 103/ulNormal0.0-0.7The TrihealthComment on above: Performed By: #### CBC #### [facility] [address] [address] [address] Amarilis Ferreiraosinophils/100 WBC (Bld)3.6 %Normal0.9-7.0The [facility] Comment on above:Performed By: #### CBC #### [facility] [address] [address] [address] Amarilis Ferreirarythrocyte distribution width (RBC) [Ratio]12.3 %Zpcihp28.0-15.0 The TrihealthComment on above:Performed By: #### CBC #### [facility] [address] [address] [address] Amarilis BarriosHematocrit (Bld) [Volume fraction]44.0 %Ofmeex43.0-54.0The TrihealthComment on above:Performed By: #### CBC #### [facility] [address] [place] [address] Dr. Amarilis BarriosHemoglobin (Bld) [Mass/Vol]14.8 g/rEMsdpum78.0-18.0The TrihealthComment on above:Performed By: #### CBC #### [facility] [address] [place] [address] Dr. Amarilis Talbert #0.02 10e3/ulNormal0.00-0.03The TrihealthComment on above:Performed By: #### CBC #### [facility] [address] [place] [address] Dr. Amarilis Talbert %0.4 %Normal0.0-0.5The [facility] on above: Performed By: #### CBC #### [facility] [address] [place] [address] Dr. Amarilis Martinez #2.1 103/ulNormal1.2-3.8The TrihealthComment on above:Performed By: #### CBC #### [facility] [address] [place] [address] Dr. Amarilis Peñahocytes/100 WBC (Bld)36.8 %Eipfov01.5-60.0The [facility]healthComselect [facility] on above:Performed By: #### CBC #### [facility] [address] [place] [address] Dr. Amarilis PearceUAL DIFF REQNONormalThe TrihealthComment on above: Performed By: #### CBC #### [facility] [address] [place] [address] Dr. Amarilis Mcpherson (RBC) [Entitic mass]31.4 yoXvfxlt80.9-34.0The TrihealthComment on above:Performed By: #### CBC #### [facility] [address] [place] [address] Dr. Amarilis Mcpherson (RBC) [Mass/Vol]33.6 g/eROihrex66.9-35.2The TrihealthComment on above:Performed By: #### CBC #### [facility] [address] [address] [address] Amarilis McphersonV (RBC) [Entitic vol]93.2 lKXdeovw46.0-94.0The TrihealthComment on above:Performed By: #### CBC #### [facility] [address] [address] [address] Amarilis Slade #0.4 103/ulNormal0.3-0.8The TrihealthComment on above:Performed By: #### CBC #### [facility] [address] [place] [address] Dr. Amarilis Irvinocytes/100 WBC (Bld)7.8 %Normal1.7-12.0The [facility] on above:Performed By: #### CBC #### [facility] [address] [place] [address] Dr. Amarilis Wren #2.9 103/ulNormal1.4-6.5The TrihealthComment on above:Performed By: #### CBC #### [facility] [address] [place] [address] Dr. Amarilsi Tannerutrophils/100 WBC (Bld)50.7 %Iksryl30.0-75.0The TrihealthComment on above:Performed By: #### CBC #### [facility] [address] [place] [address] Dr. Amarilis Millerlet mean volume (Bld) [Entitic vol]9.2 fLCritically low 9.5-13.5The TrihealthComment on above:Performed By: #### CBC #### [facility] [address] [place] [address] Dr. Amarilis BarriosPLT242 103/xqIicsja867-374Zxf TrihealthComment on above: Performed By: #### CBC #### [facility] [address] [place] [address] Dr. Amarilis BarriosRBC4.72 106/ulNormal4.70-6.10The TrihealthComment on above:Performed By: #### CBC #### [facility] [address] [address] [address] Amarilis BarriosWBC5.6 103/ulNormal4.0-11.0The [facility] on above: Performed By: #### CBC #### [facility] [address] [address] [address] Amarilis BarriosGLYCOHEMOGLOBIN A1Con 66-98-5986HIP RECOMMENDATIONADA THERAPEUTIC TARGET 6.0 - 7.0 ACTION SUGGESTED > 7.0NoCity HospitalComment on above:Performed By: #### A1C #### [facility] [address] [address] [address] Amarilis BarriosGlucose [Mass/Vol]131 mg/dLNoCity HospitalComment on above:Performed By: #### A1C #### [facility] [address] [place] [address] Dr. Amarilis BarriosHbA1c (Bld) [Mass fraction]6.2 %Critically high<=6.0[facility] HospitalComment on above:Performed By: #### A1C #### [facility] [address] [address] [address] Amarilis ZhangID PROFILEon 84-17-0646FCSG-HDL RATIO NORMSEE [facility] HospitalComment on above:Result Comment: 3.3 - 4.4 LOW RISK 4.4 - 7.1 AVERAGE RISK 7.1 - 11.0 MODERATE RISK >11.0 HIGH RISKPerformed By: #### CMP, LIPID, TSH #### [facility] [address] [address] [address] Amarilis BarriosCholesterol [Mass/Vol]247 mg/dLCritically high<=200The [facility]healthComselect specialty hospital on above:Performed By: #### CMP, LIPID, TSH #### [facility] [address] [address] [address] Amarilis BarriosCholesterol in HDL [Mass/Vol]57 mg/dLSouthview Medical Center Comment on above:Performed By: #### CMP, LIPID, TSH #### [facility] [address] [address] [address] Amarilis Aguilaresterol in LDL [Mass/Vol]173.4 mg/dLSouthview Medical CenterComment on above:Performed By: #### CMP, LIPID, TSH #### [facility] [address] [address] [address] Amarilis Wilson.total/Cholesterol in HDL [Mass ratio]4.3 {ratio} NormalThe TrihealthComment on above:Performed By: #### CMP, LIPID, TSH #### [facility] [address] [address] [address] Amarilis Huber NORMAL> or = 60 mg/dl - LOW CARDIOVASCULAR RISK <40 mg/dl - HIGH CARDIOVASCULAR RISKSouthview Medical CenterComment on above:Performed By: #### CMP, LIPID, TSH #### [facility] [address] [address] [address] Amarilis BarriosLDL CALC NORMALSEE BELOWNoCity HospitalComment on above:Result Comment: <100 mg/dl OPTIMAL 100 - 129 mg/dl NEAR OR ABOVE OPTIMAL 130 - 159 mg/dl BORDERLINE HIGH 160 - 189 mg/dl HIGH >190 mg/dl VERY HIGH Performed By: #### CMP, LIPID, TSH #### [facility] [address] [address] [address] Amarilis BarriosTriglyceride [Mass/Vol]83 mg/dLNormal<=150[facility] Comment on above:Performed By: #### CMP, LIPID, TSH #### [facility] [address] [place] [address] Dr. Amarilis BarriosVLDL CALC16.6 mg/dLNoCity HospitalComment on above: Performed By: #### CMP, LIPID, TSH #### [facility] [address] [place] [address] Dr. Amarilis BarriosPROKellen 14(COMP METB)on 31-20-3290Fncrmsj [Mass/Vol]3.5 g/dLNormal 3.5-5.0[facility] HospitalComment on above:Performed By: #### CMP, LIPID, TSH #### [facility] [address] [address] [address] Amarilis BarriosAlbumin/Globulin [Mass ratio]1.0 {ratio}NormalThe TrihealthComment on above:Performed By: #### CMP, LIPID, TSH #### [facility] [address] [address] [address] Amarilis ArshadP [Catalytic activity/Vol]71 U/IAhnhxj69-117Ral TrihealthComment on above:Performed By: #### CMP, LIPID, TSH #### [facility] [address] [address] [address] Amarilis Torres [Catalytic activity/Vol]22 U/JEmggrn66-25Vmx TrihealthComment on above:Performed By: #### CMP, LIPID, TSH #### [facility] [address] [address] [address] Amarilis Kenton gap [Moles/Vol]7.4 mmol/LNormalThe TrihealthComment on above:Performed By: #### CMP, LIPID, TSH #### [facility] [address] [address] [address] Amarilis BarriosAST [Catalytic activity/Vol]17 U/MOedzwf48-04Nqb TrihealthComment on above:Performed By: #### CMP, LIPID, TSH #### [facility] [address] [address] [address] Amarilis BarriosBilirubin [Mass/Vol]0.8 mg/dLNormal0.2-1.3The [facility] Comment on above:Performed By: #### CMP, LIPID, TSH #### [facility] [address] [address] [address] Amarilis BarriosCalcium [Mass/Vol]8.9 mg/dLNormal8.4-10.2The [facility] Comment on above:Performed By: #### CMP, LIPID, TSH #### [facility] [address] [address] [address] Amarilis BarriosChloride [Moles/Vol]106 mmol/QUizvdq20-908Qil [facility] Comment on above:Performed By: #### CMP, LIPID, TSH #### [facility] [address] [address] [address] Amarilis BarriosCO2 [Moles/Vol]30.7 mmol/LCritically high22.0-30.0The TrihealthComment on above:Performed By: #### CMP, LIPID, TSH #### [facility] [address] [address] [address] Amarilis BarriosCreatinine [Mass/Vol]0.82 mg/dLNormal0.66-1.25The TrihealthComment on above:Performed By: #### CMP, LIPID, TSH #### [facility] [address] [place] [address] Dr. Amarilis FerreiraGFR-AF GAMBIAN>60Normal>=60The TrihealthComment on above:Performed By: #### CMP, LIPID, TSH #### [facility] [address] [address] [address] Amarilis FerreiraGFR-NON AF GAMBIAN>60Normal>=60The TrihealthComment on above:Performed By: #### CMP, LIPID, TSH #### [facility] [address] [place] [address] Dr. Amarilis BarriosGlobulin (S) [Mass/Vol]3.6 g/dLNormalThe TrihealthComment on above:Performed By: #### CMP, LIPID, TSH #### [facility] [address] [address] [address] Amarilis BarriosGlucose [Mass/Vol]107 mg/dLCritically rvje42-614Ujl TrihealthComment on above:Performed By: #### CMP, LIPID, TSH #### [facility] [address] [place] [address] Dr. Amarilis BarriosPotassium [Moles/Vol]5.1 mmol/LCritically high3.4-5.0The TrihealthComment on above:Performed By: #### CMP, LIPID, TSH #### [facility] [address] [place] [address] Dr. Amarilis BarriosProtein [Mass/Vol]7.1 g/dLNormal6.1-8.2The [facility] Comment on above:Performed By: #### CMP, LIPID, TSH #### [facility] [address] [address] [address] Amarilis BarriosSodium [Moles/Vol]139 mmol/PZgrqil756-022Azi [facility] Comment on above:Performed By: #### CMP, LIPID, TSH #### [facility] [address] [place] [address] Dr. Amarilis BarriosUrea nitrogen [Mass/Vol]20.0 mg/dLNormal9.0-20.0The TrihealthComment on above:Performed By: #### CMP, LIPID, TSH #### [facility] [address] [place] [address] Dr. Amarilis Malin nitrogen/Creatinine [Mass ratio]24.4 mg/mgNoCity HospitalComment on above:Performed By: #### CMP, LIPID, TSH #### [facility] [address] [place] [address] Dr. Amarilis Vance 16-29-6099GUQ1.691 uIU/mLCritically high0.470-4.680The TrihealthComment on above:Performed By: #### CMP, LIPID, TSH #### [facility] [address] [place] [address] Dr. Amarilis Bradley [facility] BELOWSouthview Medical CenterComment on above: Result Comment: <0.34 UIU/ml HYPERTHYROID 0.34-5.60 UIU/ml EUTHYROID >5.60 UIU/ml HYPOTHYROIDPerformed By: #### CMP, LIPID, TSH #### [facility] [address] [place] [address] Dr. Amarilis Barrios Vital Signs Date TimeVital SignValuePerforming VtlkrepmkDiafwxle04-95-2994 14:41-0400Body .88 cmBenjamin Ball DO Work Phone: [facility]10-28-2025 14:41-0400 Body mass index (BMI) [Ratio]27.4 kg/l4Lhlfrnov Ball DO Work Phone: [phone] [place], [place] [address]0110-28-2025 14:41-0400 Body mfsilwwheln99.2 [degF]Ovidio Ball DO Work Phone: [phone] [place], [place] [address]10-28-2025 14:41-0400 Body rkkeja03.79 kgBenjamin Ball DO Work Phone: [phone] [place], [place] [address]10-28-2025 14:41-0400 Diastolic blood owwqttsa08 mm[Hg]Ovidio Ball DO Work Phone: 1(419)[address] [place], [place] [address]10-28-2025 14:41-0400 Heart rate68 /minBenjamin Ball DO Work Phone: [phone] [place], [place] [address]10-28-2025 14:41-0400 SaO2% (BldA) [Mass fraction]98 %Ovidio Ball DO Work Phone: [phone] [place], [place] [address]10-28-2025 14:41-0400 Systolic blood dwaliavg971 mm[Hg]Ovidio Ball DO Work Phone: 1(419)[address] [place], [place] 0150109-30-2025 14:40-0400 Body .88 cmBenjamin Ball DO Work Phone: [phone])[address] [place], [place] [address]09-30-2025 14:40-0400 Body mass index (BMI) [Ratio]27.4 kg/y6Rmnfpkyo Ball DO Work Phone: [phone])[address] [place], [place] 0[address]0109-30-2025 14:40-0400 Body dlhhco76.79 kgBenjamin Ball DO Work Phone: [phone] [place], [place] 0150109-30-2025 14:40-0400 Diastolic blood wsnenlia86 mm[Hg]Ovidio Ball DO Work Phone: 1(419)[address] [place], [place] 0[address]0109-30-2025 14:40-0400 Heart rate62 /minBenjamin Ball DO Work Phone: [phone])[address] [place], [place] 0[address]09-30-2025 14:40-0400 Respiratory rate12 /minBenjamin Ball DO Work Phone: 1(978)[address] [place], [place] 0[address]09-30-2025 14:40-0400 Systolic blood kuofmfaf814 mm[Hg]Ovidio Ball DO Work Phone: [phone])[facility] [place], [place] 5146607-28-2025 14:27-0400 Body owanjc476.88 cmBenjamin Ball DO Work Phone: [phone] [place], [place] 0[address]07-28-2025 14:27-0400 Body mass index (BMI) [Ratio]27.1 kg/y4Ymbydltl Ball DO Work Phone: [phone])[address] [place], [place] [address]0107-28-2025 14:27-0400 Body .88 kgBenjamin Ball DO Work Phone: 1(488)[address] [place], [place] 0[address]0107-28-2025 14:27-0400 Diastolic blood dsxybfqq05 mm[Hg]Ovidio Ball DO Work Phone: 1(127)[address] [place], [place] 0[address]07-28-2025 14:27-0400 Heart rate66 /minBenjamin Ball DO Work Phone: 1(264)[facility] [place], [place] 5146607-28-2025 14:27-0400 Respiratory rate12 /minBenjamin Ball DO Work Phone: [phone])[address] [place], [place] 0[address]07-28-2025 14:27-0400 Systolic blood obzvvhnu449 mm[Hg]Ovidio Ball DO Work Phone: 1(419)[address] [place], [place] [address]07-26-2024 11:38-0400 Body yibtek098.88 [facility] 11:38-0400Body mass index (BMI) [Ratio]27.2 kg/z6VwglnbgepMorrow County Hospital07-26-2024 11:38-0400Body qfuetp38.22 kgM[facility] Hospital07-26-2024 11:38-0400Diastolic blood izlsacns09 mm[Hg][facility] 05-02-2024 11:38-0400Heart rate71 /[facility] 05-02-2024 11:38-0400Respiratory rate12 /[facility] 05-02-2024 11:38-0400Systolic blood jtqemkyw768 mm[Hg][facility]07-13-2023 10:30-0400Body .88 cmBemanda Dwyer Other [employer] Other 07-13-2023 10:30-0400Body mass index (BMI) [Ratio] 27.12 kg/c4Txuswjywmanda Dwyer Other [employer] Other 07-13-2023 10:30-0400Body htjtfi61.72 kgBemanda Dwyer Other [employer] Other 07-13-2023 10:30-0400Diastolic blood vjpnlepn15 mm[Hg] Ovidio Dwyer Other [employer] Other 07-13-2023 10:30-0400Respiratory rate12 /Petr Dwyer Other [employer] Other 07-13-2023 10:30-0400Systolic blood jsvrtbux933 mm[Hg] Ovidio Dwyer Other [employer] Other Encounters Encounter DateEncounter Type[facility] ProviderFacilityStart: 08-17-2025 End: 96-18-8345gsunsdnhbcVacefueEleni Aguayo MDFacility:TIMUR Sampson Start: 08-04-2025 End: 82-49-3997lympouhfuiGqbedjho Ball DO Work Phone: -[facility]Start: 08-04-2025 End: 10-86-6845Fomnuji encounter procedureBenlive Dwyer DO-[facility] Work Phone: Start: 07-07-2025 End: 39-04-2085rcbvsaujcbJpdjszts Ball DO Work Phone: [facility] Work Phone: Start: 07-07-2025 End: 47-21-3282Yzvxzhr encounter procedureBenjamin Ball DO-[facility] Work Phone: Start: 05-04-2025 End: 62-26-1539ryreuwmdxnXyetydzz Ball DO Work Phone: [facility] Work Phone: Start: 05-04-2025 End: 46-89-1637Wlrrdum encounter procedureBenjamin Ball DO-[facility] Work Phone: Start: 32-03-2210Vyofpei encounter procedureBenjamin Ball DO Work Phone: [facility]: 03-18-2025 End: 70-69-8808Tiofqm flowsheetAlison L Radha PA Work Phone: [facility]oms TSR DERMStart: 03-18-2025 End: 20-43-2058Cvpaju flowsheetAlison L Radha PA Work Phone: [facility] TSR DERMStart: 03-18-2025 End: 01-38-0941Cispfxn encounter procedureAlison L Radha PA Work Phone: noms TSR DERMComment on above:Common wart (Primary Dx); PainStart: 03-18-2025 End: 96-29-0735ujfuufplsxROCTDL L WINANSNot AvailableStart: 02-16-2025 End: 00-92-6780Doazwy flowsheetAlison L Radha PA Work Phone: [facility] TSR DERMStart: 02-16-2025 End: 31-36-8621Txlxzd flowsheetAlison L Radha PA Work Phone: [facility] TSR DERMStart: 02-16-2025 End: 78-20-9552Cigvvcm encounter procedureAlison L Radha PA Work Phone: noms TSR DERMComment on above:Common wart (Primary Dx); PainStart: 02-16-2025 End: 72-57-8452wssmjicabqNDLJYO L WINANSNot AvailableStart: 01-16-2025 End: 06-02-9318Egkxby flowsheetAlison L Radha PA Work Phone: [facility] TSR DERMStart: 01-16-2025 End: 62-78-4431Uiuqeo flowsheetAlison L Radha PA Work Phone: [facility] TSR DERMStart: 01-16-2025 End: 50-48-8328Hvwyzos encounter procedureAlison L Radha PA Work Phone: noms TSR DERMComment on above:Common wart (Primary Dx); PainStart: 01-16-2025 End: 22-58-9138zarpnrbdctAOUTIA L WINANSNot AvailableStart: 12-08-2024 End: 77-12-3474Fvqgfh outpatient new 30 minutesAlison L Radha PA Work Phone: noms TSR DERMComment on above:Seborrheic keratosis (Primary Dx); Actinic keratosis; Melanocytic nevus of trunk; Dermatofibroma of left lower extremity; Common wart; PainStart: 12-08-2024 End: 65-42-9831bnysbupxgfVQRIMB L WINANSNot AvailableStart: 12-08-2024 End: 23-82-5432Vqyrjq flowsheetAlison L Radha PA Work Phone: NOBL TSR DERMStart: 12-08-2024 End: 76-35-4365Otunyl flowsheetAlison L Radha PA Work Phone: [facility] TSR DERMStart: 05-02-2024 End: 61-28-6491bdmkomxkctPwrbczztbWexner Medical Center Work Phone: Start: 05-02-2024 End: 05-46-2244Clpsmmi encounter procedureNov[facility] Work Phone: Start: 04-59-2678Kepjgss encounter procedureUniversity [facility]als [facility]aut Medical Centertart: 06-27-2023 End: 34-47-3288ebaczmijalKpjwgzza Ball Other [employer] Other Start: 83-58-1718Cczdfxmpx encounterBenjamin BallFPG [facility] ClinicStart: 06-04-2023 End: 21-80-2809euvhuztwejDkhkpwvd Ball Other noPer[employer] Other Start: 04-19-8464Pdfyrocmz encounterBenjamin BallFPG [facility] ClinicStart: 04-23-2023 End: 36-51-0977evbbequnjsHavjqyfo Ball Other [employer] Other Start: 19-40-7812Eokvzvnyo encounterBenjamin BallFPG [facility] Medical ClinicStart: 04-19-2023 End: 09-92-8514gtldrehftqEgjmxbuj Ball Other [employer] Other Start: 85-48-3440Ulqfbid encounter procedureBenjamin BallFPG [facility] Medical ClinicStart: 55-46-5196Ayzll health examinationBenjamin Ball Other [employer]Per[employer] Other Start: 43-24-8885Jnedhvvfv for general adult medical examination without abnormal findingsDR OVIDIO DWYERNorwalk Memorial Hospitaltart: 12-12-2021 End: 65-84-8689gakhqtzwxhBA OVIDIO BALLFacility:Q3Lacce: 12-12-2021 End: 63-49-0280Gxeklyiub for general adult medical examination without abnormal findingsDR OVIDIO BALLFacility:W0Hcdps: 08-03-2021 End: 53-23-5117nxsbameciaVPBXWL ROSSFacility:R7Eywun: 06-16-2021 End: 91-14-7843rvgcqiatgkDWUQX [facility]ITALFacility:N9Rnlxz: 12-29-2020 End: 93-52-0255iijgwyyyaqZZ OVIDIO DWYERFacility:H1 Procedures DateProcedureProcedure DetailPerforming ClinicianStart: 59-41-9789BTFOJQKUXAW SKIN LESIONAlison [place] Radha AVILES Work Phone: Start: 97-16-1423IIGDHSIPGGJ SKIN LESIONAlison L Radha PA Work Phone: Start: 12-20-5732EEDWWCFPQZB SKIN LESIONAlison L Radha PA Work Phone: Start: 12-08-2024 End: 76-96-5674QIKAYEZYQOB SKIN LESIONAlison L Radha PA Work Phone: Start: 99-78-3034BXA screeningDR OVIDIO BALLComment on above:Performed By: #### [facility] #### [facility] [address] [place] [address] Dr. Amarilis BarriosStart: 72-23-0993Whxwwhv examination of patientBenlive Dwyer Other Start: 35-59-4899Kwbigxvig for malignant neoplasm of prostateBenjamin Ball Other Depression screeningBenjacrystal Ball Other Screening for malignant neoplasm of prostateBenjamin Ball Other Plan of Treatment DateCare ActivityDetailAuthorStart: 12-09-2025 End: 92-63-0606Zlrksqp encounter eqzelvmop89/04/2026 1:00 PM EST Office Visit [facility] [address] [place] [address] Marisol Al, STEFAN [address] [place] [address] [facility] TSR DERMStart: 04-15-2025 End: 16-90-0544Ebfyhwk encounter anqvasleo39/09/2025 12:50 PM EDT Office Visit [facility] [address] [place] [address] Marisol Al PA [address] [place] [address] N[facility] TSR DERMStart: 03-18-2025 End: 58-12-6251Nzutwkw encounter procedureNOMS TSR DERMComment on above:Arrived Start: 02-16-2025 End: 31-22-7403Rwlpsja encounter procedureNOMS TSR DERMComment on above:Arrived Start: 01-16-2025 End: 80-70-4736Nhihisf encounter procedureNOMS TSR DERMComment on above:Arrived Start: 12-08-2024 End: 01-90-5370Mqzugvb encounter /03/2025 2:40 PM EST Office Visit [facility] [address] [place] [address] Marisol lA PA [address] [place] [address] ArrivedNOMS TSR DERMComment on above:ArrivedComprehensive metabolic 1999 panel - Serum or [facility] Comprehensive metabolic 1999 panel - Serum or [facility] HospitalMR Lumbar spine WO [facility] HospitalPatient EducationLow back pain in adultsOhio Valley Hospital Work Phone: XR Lumbar spine 2 or 3 [facility] Immunizations Immunization DateImmunizationNotesCare VrnyemigJahekasw30-05-2277EMBZK-87 Vaccine Moderna - Documentation Purposes OnlyOvidio Dwyer Other [facility]03-24-2021COVID-19 Vaccine Moderna - Documentation Purposes OnlyOvidio Dwyer Other [facility]02-25-2021COVID-19 Vaccine Moderna - Documentation Purposes OnlyOvidio Dwyer Other [facility]09-30-2017diphtheria, tetanus toxoids and acellular pertussis vaccine, unspecified formulation Ovidio Dwyer Other [facility] Payers DatePayer CategoryPayerPolicy [id number] [id number] [id number] 2022Medicare [id number] [id number] [id number]-[id number] 2.0.1.345075.3.57[id number] 2..1.126031.3.57[id number] 2.0.1.520587.3.57[id number] 2.0.1.609630.3.57[id number] 2.0.1.969511.3.57[id number] 2.0.1.688546.3.57[id number] 2.840.1.8[id number] 2.840.1.420106.3.579.2.593Unknown [id number] 2.16.[id number] 2.16.840.1.363757.19 Social History DateTypeDetailFacilityStart: 12-08-2024 End: 82-03-0372Ckb Assigned At [facility] [employer] Other Start: 88-98-8191Zrd Assigned At [facility] Cancer CenterTobacco smoking status NHISTobacco smoking consumption unknownNOMS HealthcareStart: 06-37-8277Ixc assigned at birthNot on fileLOGAN REGIONAL HOSPITAL HealthcareStart: 71-84-9613Umtcuhm smoking status NHISNever smoked tobaccoNOOK HealthcareStart: 73-20-8364Ycqewop use and exposureSmokeless tobacco non-user NOMS HealthcareStart: 12-08-2024 End: 71-80-2861Lakuggm of Social functionNOMS HealthcareSexMale (finding) [facility] Clinical Notes 06-16-2021 to 07-07-2025 Note Date & QhssJuufHrrqxczu37-45-9633 Evaluation note* Diagnosis Onset Date Resolution Status Admit Date Low back pain acuteSeptember 2024 2:07pmLumbar spondylosisacuteSeptember 2024 2:07pmLow back painacuteOctober 2024 2:29pmLumbosacral spondylosis with radiculopathyacuteOctober 2024 2:29pm [facility] Work Phone: 1(335) 893-379907-28-2025 Evaluation note* Diagnosis Onset Date Resolution Status Admit Date Hypercholesterolemia acuteJuly 2024 2:03pmHypertensionacuteJuly 2024 2:03pmLumbar spondylosisacuteJuly 2024 2:03pmMedicare annual wellness visit, subsequent acuteJuly 2024 2:03pmOverweightacuteJuly 2024 2:03pmScreening PSA (prostate specific antigen)acuteJuly 2024 2:03pmLow back painacute Amanda 2024 2:07pmLumbar spondylosisacuteSeptember 2024 2:07pm [facility] Work Phone: 1(307) 289-972306-11-2025 History of Present illness Narrative* STEFAN Daniels [...] limited to risks of scarring, darker or regional director pigmentary changes, recurrence, incomplete removal and infection. [...] Next Visit: 1 month documented in this encounterLOGAN REGIONAL HOSPITAL Bexmahrwrr24-03-8013 History of Present illness Narrative* STEFAN Daniels [...] limited to risks of scarring, darker or regional director pigmentary changes, recurrence, incomplete removal and infection. [...] Next Visit: 1 month documented in this encounterChildren's Mercy NorthlandFexpadfpvj46-37-0250 History of Present illness Narrative* STEFAN Daniels [...] limited to risks of scarring, darker or regional director pigmentary changes, recurrence, incomplete removal and infection. [...] Next Visit: 1 month documented in this encounterChildren's Mercy NorthlandMfaydwobam45-16-0148 History of Present illness Narrative* STEFAN Daniels [...] limited to risks of scarring, darker or regional director pigmentary changes, recurrence, incomplete removal and infection. [...] limited to risks of scarring, darker or regional director pigmentary changes, recurrence, incomplete removal and infection. [...] Next Visit: 1 year documented in this encounterChildren's Mercy NorthlandVebfyngtnk83-10-9748 Evaluation note* Encounter Date Diagnosis Assessment Notes Treatment Notes Treatment Clinical Notes May, Hyperlipidemia type II (ICD-10 - E78.01) [employer] Other 07-13-2023 Evaluation note* Encounter Date Diagnosis [...] He does have a personal hx of [employer] Other 09-09-2021 NotePROCEDURE: XR ANKLE RT MIN [...] Electronically authenticated by: SINGH OLMOS Date: 2021-06-16 12:49[facility]09-09-2021 NotePROCEDURE: XR ANKLE RT MIN 3 [...] Electronically authenticated by: SINGH OLMOS Date: 2021-06-16 12:49[facility] HospitalEvaluation noteNo [facility] [employer] Other Evaluation note* Diagnosis Onset Date Resolution Status Benign prostatic hyperplasia with lower urinary tract symptoms acuteHypercholesterolemiaacuteHypertensionacuteLumbar spondylosisacuteMedicare annual wellness visit, initialacuteOverweightacuteScreening PSA (prostate specific antigen)noneactive [facility] Work Phone: Evaluation note* Diagnosis Seborrheic keratosis- Primary Actinic keratosis Melanocytic nevus of trunk Benign neoplasm of skin of trunk, except scrotum Dermatofibroma of left lower extremity Common wart Other specified viral warts Pain Generalized pain documented in this encounter [facility] HealthcareEvaluation note* Diagnosis Common wart- Primary Other specified viral warts Pain Generalized pain documented in this encounter [facility] HealthcareEvaluation note* Diagnosis Common wart- Primary Other specified viral warts Pain Generalized pain documented in this encounter [facility] HealthcareEvaluation note* Diagnosis Common wart- Primary Other specified viral warts Pain Generalized pain documented in this encounter [facility] HealthcareEvaluation note* Diagnosis Onset Date Resolution Status Admit Date Hypercholesterolemia acuteJuly 2024 2:03pmHypertensionacuteJuly 2024 2:03pmLumbar spondylosisacuteJuly 2024 2:03pmMedicare annual wellness visit, subsequent acuteJuly 2024 2:03pmOverweightacuteJuly 2024 2:03pmScreening PSA (prostate specific antigen)acuteJuly 2024 2:03pm [facility] Work Phone: History general Narrative - Reported* Type Description Date Medical History Benign prostatic hyp erplasia with lower urinary tract symptoms, symptom details unspecified Medical HistoryLumbar spondylosisMedical HistoryEssential (primary) hypertension Medical HistoryHyperlipidemia type IIMedical HistoryContracture, right ankle Medical HistoryCalcaneal spur, rightMedical HistorySensorineural hearing loss (SNHL), unspecified lateralitySurgical HistorySIGMOND [id number] NdfnkapQCZODICZWFH8504 2012Surgical JeukwmiAVB5656Nvridggswampgmv HistorySEE SURGICAL [employer] Other History general Narrative - Reported* Type Description Date Medical History Benign prostatic hyp erplasia with lower urinary tract symptoms, symptom details unspecified Medical HistoryLumbar spondylosisMedical HistoryEssential (primary) hypertension Medical HistoryHyperlipidemia type IIMedical HistoryContracture, right ankle Medical HistoryCalcaneal spur, rightMedical HistorySensorineural hearing loss (SNHL), unspecified lateralitySurgical HistorySIGMOND [id number] UrvveccDMYRJQPRSYS4479 2012Surgical YwhgmzbXYV8532Xahsjhtw HistoryColonoscopy, repeat 5 yrs05/2023Hospitalization HistorySEE SURGICAL [employer] Other Reason for referral (narrative)* Reason Referral for screeni ng colonoscopy Diagnosis 1 Encounter for screen ing colonoscopy (Z12.11) Referral Organization [facility] rena Referring Provider First Name Ovidio Referring Provider Last Name Reymundo Referring Provider Specialty Internal Me dicine Referred Organization [facility] Referred Address [address] [place] [address] ,[place], [place],[address] Referred Provider Specialty Gastroentero logy Referral Priority [...] He prefers to be ref erred to [facility] in [place] for his procedure. [employer] Other Reason for referral (narrative)No reason for referral information availableOhio Valley Hospital Work Phone: Summary Purpose Family History No [...] section and content) DATE CREATED AUTHOR 12/16/2021 [facility] DATE CREATED AUTHOR AUTHOR'S ORGANIZ ATION 03/21/2025 [facility] DATE CREATED AUTHOR AUTHOR'S ORGANIZ ATION 08/20/2025 [facility] REASON FOR VISIT (unrecogniz ed section and [...] BE BASED ON THE PRIMARY CLINICAL RECORDS. [employer] [facility]. provides no warranty or guarantee of the accuracy or completeness of information in this document.
--- NOTE | 2025-09-09 13:09 | PM.CN ---
Consult Note: HPI Data of Consult Patient: known to practice within the last 3 years Consult date: 09/09/25 Requesting Physician: Lindy Thakkar NP Primary Care Provider: Ovidio Dwyer DO Consult Narrative Reason for consult: low back pain Narrative: Steven Michelle a 70 year old male with chronic low back pain presents for evaluation. pt recently underwent left l3-4, l4-5 tfesi with significant ongoing relief. notes overall 90% improvement in radicular pain. noting mild pain to left flank with activity. notes pain 3/10 aching to left flank. utilizing tens, heat, stretching, tizanidine, and etodolac prn. notes pain increases with standing, walking, lifting, bending, crossing leg. pain improves with sleep, lying, sitting, and ice. cc:: CC: Lindy Thakkar NP Review of Systems ROS Musculoskeletal Reports: back pain PFSH [facility] Medical History (Updated 08/18/25 @ 15:41 by Alexandria Abbott RN) HTN (hypertension) ?I10 - Essential (primary) hypertension (ICD-10) Surgical History History of colon resection ?Z90.49 - Acquired absence of other specified parts of digestive tract (ICD-10) Meds Home Medications and Allergies Home Medications ?Medication ?Instructions ?Recorded ?Confirmed ?Type atorvastatin 40 mg tablet 40 mg PO DAILY 08/18/25 08/24/25 History etodolac 500 mg tablet 500 mg PO Q12H 08/18/25 08/24/25 History lisinopril 5 mg tablet 5 mg PO DAILY 08/18/25 08/24/25 History tizanidine 2 mg tablet 2 mg PO BEDTIME 08/18/25 08/24/25 History Allergies Allergy/AdvReac Type Severity Reaction Status Date / Time No Known Drug Allergies Allergy Verified 08/24/25 08:34 Exam Constitutional Documenting provider has reviewed patient's vital signs: yes Common normals: no apparent distress, oriented x3 and alert General appearance: cooperative HENMT Common normals: normocephalic, hearing grossly normal bilaterally and moist oral mucous membranes Head and scalp: normocephalic Eye Common normals: PERRL Pupil: PERRL Neck & C-Spine Common normals: full ROM General: normal visual inspection Chest Common normals: inspection of chest normal Respiratory Common normals: normal respiratory effort, no retractions and no use of accessory muscles Back & Pelvis Lumbar spine/lower back: lumbar spinal tenderness, paraspinal muscle tenderness and straight leg raise negative bilaterally; ROM not limited and no pain with ROM Sacroiliac joints: SI joints normal Other: strength 5/5 in BLE sensation intact Neuro Common normals: oriented x3 Sensorium/orientation: alert Psych Common normals: mental status grossly normal, thought process normal, cooperative, affect normal, speech normal and activity/motor behavior normal Speech: normal speech Thought process: normal thought process Results Imaging Lumbar MRI: Attestation: I have reviewed the pertinent imaging results. Radiologist's impression: Straightening and mild reversal normal lumbar lordosis. Ypaz-dy-hzxwnovz levocurvature. Slight heterogeneity of the bone marrow signal. Modic type II changes L4-5 and L2-3. Modic type II and minimal height L3 changes at L3-4. Moderate severe disc space disease L4-5 and L2-3. Moderate disc space disease at L1-2 and L3-4 and L5-S1. Multilevel facet arthropathy. The conus medullaris terminates at mid L1 vertebral body. 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 Paraspinal soft tissues unremarkable. T12-L1: Disc desiccation with facet arthropathy. Mild canal and mild neural foraminal narrowing L1-L2: Broad-based disc bulge with minimal endplate spurring extending both foramina zones. Cujv-li-uieacupc facet arthropathy and ligamentum flavum hypertrophy. Congenitally short pedicles. Moderate canal and moderate neural foraminal narrowing. L2-L3: Circumferential disc bulge with endplate osteophytosis extending into both foramina zones greatest the right. There is a small right subarticular zone extrusion which extends caudally 8 mm. There is moderate severe central canal stenosis and subarticular recess narrowing. Moderate severe right neural foraminal narrowing encroaching upon the right L2 nerve root. Bilateral subarticular recess narrowing right greater than left encroaching upon the L3 nerve roots. Moderate left frontal narrowing. L3-4: Circumferential disc bulge with endplate osteophytosis and moderate severe facet arthropathy. Severe central canal stenosis and subarticular recess narrowing left greater than right, correlate with bilateral L4 radiculopathy. There is moderate bilateral neural foraminal narrowing. L4-L5: Circumferential disc osteophyte complex with bulky left far lateral disc osteophyte complex noted bilateral facet arthropathy this causes moderate severe central canal and predominantly left-sided subarticular recess narrowing predominantly left-sided. Severe left neural foraminal narrowing correlate with left L4 and L5 radiculopathy. Moderate right subarticular and foraminal narrowing noted. L5-S1: Circumferential disc bulge with endplate osteophytosis and facet arthropathy causing moderate canal and moderate subarticular recess narrowing and moderate neural foraminal narrowing. Additional Findings Additional findings: If on a controlled substance or opioids, I have checked an [place] report on this patient and there are no aberrancies noted in the prescribing history.??If on a controlled substance or opioid a drug screen was completed and reviewed within the last year, and if there has not been a drug screen completed we ordered one today to monitor higher risk, state monitored pain medication use. As part of providing excellent, safe, comprehensive care, the following was completed at our patient's visit: 1. A medication reconciliation and review to ensure accurate knowledge of current/active medications, including asking our patients to inform us about any yvla-xnk-jkfbksj medications or herbal remedies/nutritional supplements/alternative remedies. 2. A review to specifically ensure our patients have had annual screening for screening for depression, screening for tobacco use, and screening for unhealthy alcohol use. For concerning screenings had a discussion with the patient, provided patient education, and recommended follow-up with primary care provider when appropriate. If patient noted with a risk of falling, they received education on strength, gait, and balance training to prevent future risk of falling. Portions of this note may have been carried over from the previous visit and updated as appropriate. Please note this office utilizes paper charting in addition to the electronic medical record. A list of current medications, vitals, and PMH is available there as the clinical staff outside of myself do not have access to [employer] charting during the clinic day operations. As part of providing quality comprehensive care the current medications, vitals, and PMH were reviewed in the paper chart. Assessment and Plan Assessment and Plan (1) Lumbar stenosis with neurogenic claudication: (2) Lumbar spondylosis: Plan The patient has had over 3 months of moderate to severe low back and LLE pain with functional impairment and inadequate response to conservative care including NSAIDS (unless there are contraindication such as concurrent blood thinners), multiple oral or topical pain medications, and home exercise program/physical therapy.? Patient has completed >6 weeks of guided home exercise program and/or formal physical therapy program without relief of their symptoms.? The Oswestry Disability Index was completed, and the patient scored a 10%.? Pain significant improved post lumbar FARZANA. no additional recommendations at this time. pt may continue HEP as tolerated. cautioned to avoid heaving lifting and twisting, recommend back brace with strenuous activity. f/u with NS as planned, pending NS consultation with [facility] 10/20/[address] Fortune 09/16/25 f/u 3 months, sooner if needed
== END 2025-09-09 12:51 | disposition home or self-care (01) ==
LOC: PM 12:50
PROVIDERS: PCP Internal Medicine; Visit Provider Nurse Practitioner
DX: M48.062 Spinal stenosis, lumbar region with neurogenic claudication (principal); M47.816 Spondylosis without myelopathy or radiculopathy, lumbar region
CPT/HCPCS: G0463

== ENCOUNTER 2025-10-07 10:07 | Outpatient (OUT) | payer MEDICARE, SELFPAY ==
--- OUTSIDE RECORDS SUMMARY | 2025-10-07 10:10 | XMS_ITS | Encounter Summary ---
Author Organization [facility] Address [address] [place] [address] Care Team Providers Care Supervisor [employer] Name Role Phone Ramonita Aguayo MD Unavailable [phone] Ovidio Dwyer DO Primary Care Provider Source Comments In the event this information is protected by the Federal Confidentiality of Alcohol and Drug AbusePatient Records regulations: The Federal rules restrict any use of the information to criminally investigate or prosecute any alcohol or drug abuse patient.[facility] Encounter Details DateTypeDepartmentCare Team (Latest Contact Info)Oedwzhomgif60/17/2025 Patient Msg [facility] [place] [address] [phone] ProviderPrachi Preop Date/Day before Surgery Instructions Social History Tobacco UseTypesPacks/DayYears UsedDateSmoking Tobacco: FormerCigarettes0.510 10/08/1979 - 10/08/1989mokeless Tobacco: NeverAlcohol UseStandard Drinks/Week CommentsYes0 (1 standard drink = 0.6 oz pure alcohol)6 per yearArea Deprivation IndexAnswerDate RecordedNational Score (1-100), lower number is lower risk78 09/18/2025State Score (1-10), lower number is lower jtlp83211/19/2024Data from: https://www.neighborhoodatlas.[facility]/. Last address used for [address]09/18/2025Sex and Gender InformationValueDate RecordedSex Assigned at BirthNot on fileLegal EzsDeqc55/02/2012 8:07 AM ESTGender Identity Not on fileSexual OrientationNot on filedocumented as of this encounter Plan of Treatment DateTypeDepartmentCare Team (Latest Contact Info)Fggwngjghwv36/13/2026 11:30 AM ESTOffice Visit [place] [address] Regi10/21/2025 2:40 PM ESTPAT Pre Anesthesia [address] [place] [address] Preop10/21/2025 3:30 PM ESTResults Only [facility] Draw Station [address] [place] [phone] Preop lab and nasal swab10/29/2025 10:00 AM [facility] Patient Outreach Spine [place] [phone] Provider, Nurse [place]ine [place] [address] [place] [address] VSEA Zzljaxjdx68/04/2026 12:45 PM ESTHospital Encounter Admitting [facility] [place] [address] Jake Vazquez MD [address] [place] [address] Spinal stenosis of lumbar region with neurogenic claudication [M48.062], Radiculopathy of lumbar region [M54.16]11/11/2025 12:45 PM EST - 11/11/2025 4:45 PM ESTSurgery Admitting [facility] [place] [address] Jake Vazquez MD [address] [place] [address] LAMINECTOMY DECOMPRESSION FACETECTOMY AND QNLTWPZQAYHJ12/20/2026 9:40 AM [facility] [place] [address] [phone] Teresita Mascorro, MALT SPECIFICATIONS CONTROL ASSISTANT.ENTERTAINMENT MUSICIAN [address] [id number] 2 week MYC pggbph9412/25/2025 8:40 [facility] [address] [phone] Jake Vazquez MD [address] [facility] [address] [id number] MYC Postop, 6wkNamePriorityAssociated DiagnosesDate/TimeLAMINECTOMY DECOMPRESSION FACETECTOMY AND FORAMINOTOMY Spinal stenosis of lumbar region with neurogenic claudication Radiculopathy of lumbar region 11/11/2025 12:45 PM ESTDECOMPRESSION LAMINECTOMY 1ST ADD'L LUMBAR SEGMENT Spinal stenosis of lumbar region with neurogenic claudication Radiculopathy of lumbar region 11/11/2025 12:45 PM ESTDECOMPRESSION LAMINECTOMY 2ND ADD'L LUMBAR SEGMENT Spinal stenosis of lumbar region with neurogenic claudication Radiculopathy of lumbar region 11/11/2025 12:45 PM ESTdocumented as of this encounter Goals GoalPatient Goal TypeAssociated ProblemsRecent ProgressPatient-Stated?Author Autogenerated Goal Care PlanAutogenerated ProblemNoDuAzeb mijares Rdocumented as of this encounter Visit Diagnoses Not on filedocumented in this encounter Additional Health Concerns Active ProblemsNoted DateDiagnosed DateAutogenerated Pcclmjz1109/23/2025documented as of this encounter Care Teams Team MemberRelationshipSpecialtyStart DateEnd Date Ovidio Dwyer DO [address] [place] [address] PCP - GeneralInternal Kvzdhira06/12/25 Ramonita Aguayo MD [address] [facility] [address] [place] [address] ReferringPain Vbgwmtpaqf68/20/25documented as of this encounter
--- OUTSIDE RECORDS SUMMARY | 2025-10-07 10:10 | XMS_ITS | Clinical Summary ---
Author Organization [facility] Address [address] [facility] [place] [address] Care Team Providers Care Plant Electrician Name Role Phone Unavailable Primary Care Provider Unavailabl e Allergies No known active allergies Medications MedicationSigDispense QuantityRefillsLast FilledStart DateEnd DateStatus atorvastatin (Lipitor) 40 MG tablet 5Active lisinopril 5 MG tablet Take 5 mg by mouth Daily4Active baclofen (Lioresal) 20 MG tablet TAKE 1 TABLET BY MOUTH AT BEDTIME X 21 DAYS5Active etodolac (Lodine) 500 MG tablet TAKE 1 TABLET BY MOUTH TWICE A DAY X 30 DAYS5Active tiZANidine (Zanaflex) 2 MG tablet TAKE 1 TABLET BY MOUTH AT BEDTIME NEEDED FOR MUSCLE SPASTICITY X 30 DAYS 5Active Active Problems No known active problems Encounters DateTypeDepartmentCare BgcqCxytiyddmpr11/05/2025 11:10 AM ESTOffice Visit [facility] [address] [place] [address] Marisol Garcia PA Common wart (Primary Dx); Pain09/11/2025amboo flowsheet [facility] [address] [place] [address] Marisol Garcia PA 09/11/2025Travelfrom Last 3 Months Social History Tobacco UseTypesPacks/DayYears UsedDateSmoking Tobacco: NeverSmokeless Tobacco: Never Tobacco Cessation:Counseling Given: Not Answered Sex and Gender InformationValueDate RecordedSex Assigned at BirthNot on file Legal DbvRgzp9612/20/2022 6:35 PM EDTGender IdentityNot on fileSexual Orientation Not on file Plan of Treatment DateTypeDepartmentCare Team (Latest Contact Info)Qtimjpvbnwh93/16/2026 10:00 AM ESTOffice Visit [facility] [address] [place] [address] Marisol Garcia PA [address] [place] [address] 12/09/2025 1:00 PM ESTOffice Visit [facility] [address] [place] [address] Marisol Garcia PA [address] [place] [address] Procedures Procedure NamePriorityDate/TimeAssociated DiagnosisCommentsCRYOTHERAPY SKIN HQHLRVClyoiad34/05/2025 11:16 AM EST Common wart from Last 3 Months Results * Cryotherapy, skin lesion (09/11/2025 11:16 AM EST) Narrative Authorizing ProviderResult TypeResult StatusAlison Berlin Garcia PADTANYA PROCEDURE ORDERABLESFinal Result from Last 3 Months Insurance
--- OUTSIDE RECORDS SUMMARY | 2025-10-07 10:10 | XMS_ITS | Clinical Summary ---
Author Organization [facility] Address [address] [place], [place] [address] Care Team Providers Care Loss Prevention Representative Name Role Phone Ramonita Aguayo MD Unavailable [phone] Ovidio Dwyer DO Primary Care Provider [phone] Allergies No known active allergies Medications MedicationSigDispense QuantityRefillsLast FilledStart DateEnd DateStatus ramipril (ALTACE) 5 mg ORAL Cap Take one(1) tablet daily.ctive Additional Information Patient not taking.Reason: Course of Therapy Completed, Reported on 09/18/2025 atorvastatin (LIPITOR) 40 mg tablet .ENBMKUL92/01/2025Active tiZANidine (ZANAFLEX) 2 mg tablet TAKE 1 TABLET BY MOUTH AT BEDTIME NEEDED FOR MUSCLE SPASTICITY X 30 DAYS 5Active lisinopril (ZESTRIL) 5 mg tablet once daily.4Active Etodolac 500 mg tablet two times a day.5Active therapeutic multivitamin-minerals tablet Take 1 tablet by mouth once daily.Active Bifidobacterium longum (ALIGN, B.LONGUM, PO) Take 1 capsule by mouth once daily.Active Active Problems ProblemNoted DateDiagnosed DateEssential hypertension, benignOther forms of migraine Overview (03/21/2007): vestibular Diverticulosis of colon (without mention of hemorrhage) Overview (03/21/2007): diverticulitis Other and unspecified disc disorder of lumbar region Overview (03/21/2007): low back pain Encounters DateTypeDepartmentCare GjhfCrdnaeilnth79/17/2025 Patient [facility] [place] [address] [place], [place] [phone] Provider, Ccf Preop Date/Day before Surgery Ocudbmclvokq29/16/2025[place] [address] Jake Vazquez MD 09/22/2025 Patient [facility] [place] [address] [place] [address] Provider, Ccf Spine surgery szacthidcso54/16/2025Telephone [place]ine [place] [phone] Jake Vazquez MD Schedule Wayhzwo1209/22/2025Telephone Neurology [address] [place] [address] Jake Vazquez MD Patient Cdkctjsd45/12/2025 9:40 [place] [address] Jake Vazquez MD Spinal stenosis of lumbar region with neurogenic claudication; Radiculopathy, lumbar yzvyub5409/18/20257048Uqpqak56/20/2025Transcribe Orders Referring Physician [address] [place] [phone] Ramonita Aguayo MD Spinal stenosis of lumbar region with neurogenic claudication (Primary Dx) 08/25/2025bstract Neurology [address] [place], [place] [phone] Jake Vazquez MD from Last 3 Months Family History Medical HistoryRelationCommentsCancerFatherlung cancer, brain tumor?Relation StatusCommentsFather Social History Tobacco UseTypesPacks/DayYears UsedDateSmoking Tobacco: FormerCigarettes0.510 10/08/1979 - 10/08/1989mokeless Tobacco: Never Tobacco Cessation:Counseling Given: Not Answered Alcohol UseStandard Drinks/WeekCommentsYes0 (1 standard drink = 0.6 oz pure alcohol)6 per yearArea Deprivation IndexAnswerDate RecordedNational Score (1- 100), lower number is lower wiau365009/18/2025State Score (1-10), lower number is lower axni45511/19/2024Data from: https://www.neighborhoodatlas.medicine[facility].edu/. Last address used for fd[address]dh[address]09/18/2025Sex and Gender InformationValueDate RecordedSex Assigned at BirthNot on fileLegal BnpFgjv54/02/2012 8:07 AM ESTGender Identity Not on fileSexual OrientationNot on file Last Filed Vital Signs Vital SignReadingTime TakenCommentsBlood Fzdkwkfv274/7409/18/2025 9:13 AM EST Hhpep170009/18/2025 9:13 AM PDMDvozrrjlunp59.7 ??C (96.3 ??F)04/04/2007 6:54 AM EDTRespiratory Bggj529311/19/2024 9:13 AM ESTOxygen Srjlkoprjx03%04/04/2007 6:54 AM EDTInhaled Oxygen Concentration--Shdvch22 kg (200 lb 9.9 oz)09/18/2025 9:13 AM KACZruogz810.9 cm (6')09/18/2025 9:13 AM ESTBody Mass Index27.21111/19/2024 9:13 AM EST Plan of Treatment DateTypeDepartmentCare Team (Latest Contact Info)Pksikmwaloa80/13/2026 11:30 AM ESTOffice [place] [address] Regi10/21/2025 2:40 PM ESTPAT Pre Anesthesia [address] [place] [address] Preop10/21/2025 3:30 PM ESTResults Only [facility] Draw Station [address] [place] [address] Preop lab and nasal swab10/29/2025 10:[facility] [place] [address] [place] [address] Provider, Nurse Spine [facility] [address] [place] [address] VSEA Mfdeburej72/04/2026 12:45 PM ESTHospital Encounter Admitting [address] [place] [address] Jake Vazquez MD [address] [facility] [address] [place] [address] Spinal stenosis of lumbar region with neurogenic claudication [M48.062], Radiculopathy of lumbar region [M54.16]11/11/2025 12:45 PM EST - 11/11/2025 4:45 PM ESTSurgery Admitting [address] [place] [address] Jake Vazquez MD [address] [address] LAMINECTOMY DECOMPRESSION FACETECTOMY AND JFILKQMTZUQT82/20/2026 9:40 AM [facility]ine [address] [address] Teresita Mascorro, IMPERSONATOR CHARACTER.SOCIAL MEDIA DESIGNER [address] [place] [address] 2 week MYC nqfuqr3212/25/2025 8:[address] [address] Jake Vazquez MD [address] [address] MYC Postop, 6wkNamePriorityAssociated DiagnosesDate/TimeLAMINECTOMY DECOMPRESSION FACETECTOMY AND [...] Radiculopathy of lumbar region 11/11/2025 12:45 PM ESTHealth MaintenanceDue DateLast DoneCommentsAbdominal Aortic Aneurysm Jenjhsvvk1954Annual PCP Team Chronic Disease Visit 1972Anxiety Gjgokwycw18/16/1972Depression Hgxdwgqhy80/16/1972Hepatitis C Hcbvyckzo64/16/1972Lipid Yoqgyxpkc73/16/1989CT Cdzdlcgxbexw03/16/1999Cologuard (FIT-DNA)03/23/19993251Zzgdnbhyldd51/16/1999Colorectal Cancer Rvztevirb86/16/1999 Fecal Occult Blood03/23/19995508Rewdxgdbtferv10/16/1999Pneumococcal Vaccine: 50+ (1 of 1 - PCV)2004Shingrix Vaccine (1 of 2)2004Diabetes Screening , 04/01/2007, 03/21/2007Medicare Annual Wellness Visit 03/08/2019Advance Directive Rjctxkzhkw73/01/2025Covid-19 Vaccine ( season), 12/29/2020, 12/02/2020Influenza Vaccine (#1) DTaP,Tdap,Td Vaccine (2 - Tdap)RSV Vaccine (1 - 1-dose 75+ series)2029 Goals GoalPatient Goal TypeAssociated ProblemsRecent ProgressPatient-Stated?Author Autogenerated Goal Care PlanAutogenerated ProblemNoAzeb Brice Procedures Procedure NamePriorityDate/TimeAssociated DiagnosisCommentsEXTERNAL IMAGING 08/27/2025 11:19 AM EST EXTERNAL ZDXLIYO7108/27/2025 11:17 AM EST MRI OUTSIDE CD DICOM POMPKW2008/07/2025 XR OUTSIDE CD DICOM CFWNXN2207/07/2025 BASIC METABOLIC DVTIALmqlxbf31/26/2007 10:53 PM EDT from Last 3 Months [...] PM EST Images were obtained outside of [facility] Procedure Note Provider, [facility] [place] - 08/25/2025 Images were obtained outside of [facility] Authorizing ProviderResult TypeResult StatusCcf ProviderMRIFinal Result * OT-XR LUMBAR SPINE 2-3V IMPORT (07/07/2025)Anatomical RegionLateralityModality OtherSpecimen (Source)Anatomical Location / LateralityCollection Method / VolumeCollection TimeReceived Time07/07/2025 Narrative 08/25/2025 11:10 PM EST Images were obtained outside of [facility] Procedure Note Provider, [facility] [place] - 08/25/2025 Images were obtained outside of [facility] Authorizing ProviderResult TypeResult StatusCcf ProviderRADIOLOGYFinal Result * (ABNORMAL) BASIC METABOLIC PNL (04/02/2007 10:53 PM EDT)ComponentValueRef RangeTest MethodAnalysis TimePerformed AtPathologist BqnjbzboiGkewgag442(H)65 - 100 mg/dL[facility] MAIN LABORATORYBUN5(L)10 - 25 mg/dLMER[facility] LABORATORYCreatinine0.80.7 - 1.4 mg/dLMER[facility]ALTH [facility] PSOBDHNIIVVzuysi917439 - 146 mmol/LCFULTON COUNTY [facility]ENTERAND [facility] MAIN LABORATORYPotassium 4.83.5 - 5.0 mmol/LCFULTON COUNTY HEALTH [facility]ENTERAND [facility] MAIN YZFPFXQWSARjvwdhte67621 - 110 mmol/L [facility] GBOTGVDZCYMR78634 - 32 mmol/LCFULTON COUNTY HEALTH CENTERAND [facility] MAIN LABORATORYAnion Gap60 - 15 mmol/LCSELECT MEDICAL [facility] MAIN LABORATORYCalcium8.88.5 - 10.5 mg/dLMERCY [facility]ALTH [facility] LABORATORYSpecimen (Source)Anatomical Location / LateralityCollection Method / VolumeCollection TimeReceived Time Blood specimen (specimen)BLOOD SPECIMEN / Lcdebiy0004/02/2007 10:53 PM EDT Narrative Authorizing ProviderResult TypeResult StatusJon D VogelLABORATORYFinal Result Performing OrganizationAddressCity/State/ZIP CodePhone Number [facility] [address] [place] [address] from Last 3 Months or Most Recently Relevant to Health Maintenance Additional Health Concerns Active ProblemsNoted DateDiagnosed DateAutogenerated Ffrhkbk9309/23/2025 Insurance * Guarantor: Steven Goel TypeRelation to PatientDate of BirthPhone Billing AddressPersonal/BjhwifJasv1955 [phone] (Work) [address] [place] [address] * Guarantor: TAYLOR GOEL TypeRelation to PatientDate of BirthPhone Billing AddressSelf AfrKpps93 1955 [phone] (Work) [address] [place] [address] Care Teams Team MemberRelationshipSpecialtyStart DateEnd Date Ovidio Dwyer DO [address] [place], [place] [id number] PCP - GeneralInternal Pwtbdgfk24/12/25 Ramonita Aguayo MD [address] [facility] [address] [place], [place] [address] ReferringPain Zdclmkuyns49/20/25
--- OUTSIDE RECORDS SUMMARY | 2025-10-07 10:10 | XMS_ITS | Clinical Summary ---
Author Organization [facility] Address [address] [facility], [address] [place] [address] Care Team Providers Care Vending Machine Servicer Name Role Phone Ovidio Dwyer DO Primary Care Provider [phone] Allergies No known active allergies Medications MedicationSigDispense QuantityRefillsLast FilledStart DateEnd DateStatus therapeutic multivitamin-minerals (THERAGRAN-M) tablet Take 1 tablet by mouth daily.Active Teachey-3 Fatty Acids (FISH OIL) 1000 MG CAPS Take 1,000 mg by mouth daily.Active ramipril (ALTACE) 5 MG tablet Take 5 mg by mouth daily.Active Misc Natural Products (OSTEO BI-FLEX ADV DOUBLE ST) TABS Take by mouth. 1500mg with 400iu vitamin D. 100mg 5 loxinActive Active Problems ProblemNoted DateDiagnosed DateAbdominal pain04/08/2013bnormal CT of the ydnhtsg4904/08/2013 Family History Medical HistoryRelationNameCommentsLung CancerFatherEmphysemaMotherRelationName StatusCommentsFatherDeceasedMotherAlive Social History Tobacco UseTypesPacks/DayYears UsedDateSmoking Tobacco: FormerSmokeless Tobacco: Never Comments:Pt smoked One pack per week at his most. Alcohol UseStandard Drinks/WeekCommentsYes0 (1 standard drink = 0.6 oz pure alcohol)OccasionallySex and Gender InformationValueDate RecordedSex Assigned at BirthNot on fileLegal VklTqmc5311/17/2012 1:18 PM ESTGender IdentityNot on file Sexual OrientationNot on file Last Filed Vital Signs Vital SignReadingTime TakenCommentsBlood Qudjibua496/8409 3:00 PM EDT Vebxn6622 3:00 PM BJRCipljvqgcnr93.4 ??C (97.6 ??F)07/03/2013 3:00 PM EDTRespiratory Ineo595307/03/2013 3:00 PM EDTOxygen Iyuizeygsd70%04/22/2013 8:41 AM EDTInhaled Oxygen Concentration--Vxofbi77 kg (194 lb)07/03/2013 3:00 PM EDT Ndfdtn998.9 cm (6')07/03/2013 3:00 PM EDTBody Mass Index26.31007/03/2013 3:00 PM EDT Plan of Treatment Not on file Care Teams Team MemberRelationshipSpecialtyStart DateEnd Date Ovidio Dwyer DO [facility] - General04/08/13
--- OUTSIDE RECORDS SUMMARY | 2025-10-07 10:19 | XMS_ITS | CCD ---
Author Organization [facility] Care Team Providers Care Brickmason Name Role Phone REYMUNDO, DR WALTERS Primary [...] Unavailable Ovidio Dwyer DO Primary Care Provider [phone] Ovidio Dwyer DO Attending Provider [phone] Ovidio Dwyer DO Primary Care Provider [phone] Ovidio Dwyer DO Attending Provider [phone] Dede VALENZUELA, Ramonita London Attending Unavailable Ovidio Dwyer DO [facility] Unavail able Allergies Allergy ClassificationReported Allergen(s)Allergy TypeDate of OnsetReaction(s) Facility (3 sources)patient allergy list reviewed by nurse or physiciaPropensity to adverse [id number]:Verenium Other (3 sources)Allergies ReconciledPropensity to adverse reactionsSelect Specialty Hospital - [email or web address] Other (1 source)No Known Medication Allergies; Translations: [No Known Medication Allergies]Propensity to adverse reactions to drug (disorder)[facility] Repository Medications Current Medications MedicationDrug Class(es)DatesSig (Normalized)Sig (Original)atorvastatin 40 mg oral tablet (20 sources)HMG-CoA Reductase InhibitorStart: 49-69-2858dytyrgajywml (Lipitor) 40 MG tablet 11/08/2024 ActiveStart: 05-11-2024 End: 95-22-4217vqgm 1 tablet by mouth once daily in the eveningAtorvastatin 40 mg tablet Active 0 .ROUTE .COMPLEX 90 April 20, 2025 8:28am TAKE 1 TABLET BY MOUTH ONCE A DAY IN THE EVENING X30 DAYS 90 Complies with drug therapyStart: 04-14-2024 End: 56-84-7750gcrn 1 tablet by mouth once daily in the eveningAtorvastatin 40 mg tablet Discontinued 40 MG PO Every evening April 14, 2024 12:00am May 11, 2024 11:49amtake 1 tablet by mouth once daily in the eveningAtorvastatin Calcium 40 MG 1 tablet Orally Once a day, in evening for 30 days Activelisinopril 5 mg oral tablet (17 sources)Angiotensin Converting Enzyme InhibitorStart: 09-23-2024 End: 29-35-6295bmuq 1 tablet by mouth once dailyLisinopril 5 mg tablet Active 5 MG PO Daily 90 90 September 24, 2024 4:18pm Complies with drug therapy predniSONE 20 mg oral tablet (2 sources)Start: 69-10-7405Xbghpbnccc 20 mg tablet Active 20 MG PO As Directed 12 6 July 07, 2025 12:00am 1 tab tid w/ food x 2 days, then bid w/ food x 2 days, then qd w/ food x 2 days Complies with drug therapy Completed/Discontinued Medications MedicationDrug Class(es)DatesSig (Normalized)Sig (Original)baclofen 20 mg oral tablet (2 sources)gamma-Aminobutyric Acid-ergic AgonistStart: 07-07-2025 End: 23-61-5976knho 1 tablet by mouth once daily at bedtimeBaclofen 20 mg tablet Discontinued 20 MG PO Daily at bedtime July 07, 2025 12:00am Oc tober 2024 2:47pmramipril 5 mg oral capsule (13 sources)Angiotensin Converting Enzyme InhibitorStart: 04-14-2024 End: 63-00-4932yjxh 1 capsule by mouth once dailyRamipril 5 mg capsule Discontinued 0 .ROUTE .COMPLEX 90 3 April 14, 2024 9:36am September 23, 2024 9:57pm TAKE 1 CAPSULE BY MOUTH EVERY DAY FOR 90 DAYSStart: 04-14-2024 End: 08-84-1006ncoe 1 capsule by mouth once dailyRamipril 5 [...] metabolism (20 sources)Pure hypercholesterolemia; Translations: [Familial hypercholesterolemia]Onset: 17-78-0258WexrdssGeauyzukg hypertension (18 sources)Essential hypertension; Translations: [Essential (primary) hypertension]ChronicHyperplasia of prostate (14 sources)Lower urinary tract symptoms due to benign prostatic hypertrophy; Translations: [Benign prostatic hyperplasia with lower urinary tract symptoms] Onset: 68-66-3015ZxqhidfPnnzw acquired deformities (5 sources)Joint contracture of the ankle and/or foot; Translations: [Contracture, right ankle]ChronicOther aftercare (1 source)Other long term care administrator (current) drug therapyEpisodicOther and unspecified benign neoplasm (2 sources)Melanocytic nevus of trunk; Translations: [Melanocytic nevi of trunk] 27-83-4351MudqigufDxtag and unspecified benign neoplasm (2 sources)Dermatofibroma of left lower limb; Translations: [Other benign neoplasm of skin of left lower limb,including hip]34-71-9190EykeoperEddel connective tissue disease (5 sources)Calcaneal spur; Translations: [Calcaneal spur, right foot]Episodic Other connective tissue disease (6 sources)Achilles bursitis; Translations: [Achilles tendinitis, left leg] Resolved: 95-16-7560LndjmzfjHcnhk connective tissue disease (3 sources)Calcaneal spur of right foot; Translations: [Calcaneal spur, right foot]EpisodicOther connective tissue disease (3 sources)Pain in right foot; Translations: [Pain in right foot]EpisodicOther ear and sense organ disorders (8 sources)Sensorineural hearing loss; Translations: [Unspecified sensorineural hearing loss]ChronicOther ear and sense organ disorders (3 sources)Unilateral sensory hearing loss; Translations: [Sensorineural hearing loss, unilateral]Onset: 23-07-5207IobfwbgTxcvt ear and sense organ disorders (3 sources)Conductive hearing loss; Translations: [Unspecified conductive hearing loss]Onset: 03-79-5092JkhfacwWcmsl non-traumatic joint disorders (3 sources)Arthralgia of the ankle and/or foot; Translations: [Pain in right ankle and joints of right foot]EpisodicOther nutritional; endocrine; and metabolic disorders (9 sources)Overweight; Translations: [Overweight]63-13-4245WpjtwosyKdtas nutritional; endocrine; and metabolic disorders (1 source)Overweight; Translations: [Overweight]38-97-1020AozcdlfmXpvbw screening for suspected conditions (not mental disorders or infectious disease) (14 sources)Encounter for screening for malignant neoplasm of prostate; Translations: [Patient encounter status]Onset: 98-41-0308FglaznbuKjfmmjv on above:0.749 - 8Other skin disorders (2 sources)Actinic keratosis; Translations: [Actinic keratosis]12-08-2024 EpisodicOther skin disorders (2 sources)Seborrheic keratosis; Translations: [Other seborrheic keratosis] 49-37-1022BmubyfzoMbzpr upper respiratory infections (6 sources)Acute maxillary sinusitis; Translations: [Acute maxillary sinusitis, unspecified]Onset: 56-91-7517AntxlyuhChqiptzw codes; unclassified (8 sources)Pain; Translations: [Pain, unspecified]69-66-1491RbppxjfuMrtllsoqzzb; intervertebral disc disorders; other back problems (20 sources)Lumbar spondylosis; Translations: [Spondylosis without myelopathy or radiculopathy, lumbar region]ChronicSpondylosis; intervertebral disc disorders; other back problems (5 sources)Low back pain; Translations: [Low back pain]67-87-0035Mmakexkv Substance-related disorders (3 sources)Tobacco user; Translations: [Nicotine dependence, cigarettes, in remission]ChronicUnclassified (3 sources)Exposure to acute respiratory syndrome coronavirus 2; Translations: [Contact with and (suspected) exposure to COVID-19]Viral infection (8 sources)Verruca vulgaris; Translations: [Other viral warts]68-04-7113Cfvsiznh Past or Other Problems Problem ClassificationProblemDateDocumented DateEpisodic/ChronicAcute bronchitis (3 sources)Acute bronchitis; Translations: [Acute bronchitis, unspecified]Onset: 52-79-7810RihglshbZsjlgtkva infection; unspecified site (3 sources)Bacterial infectious disease; Translations: [Bacterial infection, unspecified, in conditions classified elsewhere and of unspecified site]Onset: 77-23-7782FmdrcgnkAtzdpjmgwy associated with dizziness or vertigo (3 sources)Benign paroxysmal positional vertigo; Translations: [Benign paroxysmal positional vertigo]Onset: 15-44-0047BxrvrkioGebgvjmiqtouz and screening for infectious disease (4 sources)Encounter for immunization; Translations: [ENCOUNTER FOR IMMUNIZATION]Onset: 81-32-3342ZxejubswFiqqmnz and fatigue (3 sources)Malaise and fatigue; Translations: [Other malaise and fatigue]Onset: 93-76-8550EamnyfytWanep connective tissue disease (1 source)Pain in right foot; Translations: [PAIN IN RIGHT FOOT]Onset: 15-91-7180UeucsvkjYeqcg gastrointestinal disorders (3 sources)Flatulence, eructation and gas pain; Translations: [Abdominal distension (gaseous)]Onset: 42-82-0805BelpoykfKsdot non-traumatic joint disorders (4 sources)Pain in right ankle and joints of right foot; Translations: [PAIN IN RIGHT ANKLE]Onset: 71-38-7785WyjhzumoXxtjs nutritional; endocrine; and metabolic disorders (9 sources)Body mass index 25-29 - overweight; Translations: [Body mass index 29.0-29.9, adult]Onset: 42-69-3079UvplkfsbJqvkybwo codes; unclassified (3 sources)Postoperative state; Translations: [Other postprocedural status] Onset: 33-21-4289SgunzyssCvyuhfpqr and history of mental health and substance abuse codes (3 sources)History of tobacco use; Translations: [Personal history of tobacco use, presenting hazards to health]Onset: 07-01-2063GeliiumoYdigbut and strains (3 sources)Neck sprain; Translations: [Strain of muscle, fascia and tendon at neck level, initial encounter] Resolved: 86-59-9511Fsyildne Results Test NameValueInterpretationReference RangeFacilityNo Panel Informationon [id number] HealthcareNo Panel Informationon [id number] HealthcareNo Panel Informationon [id number] HealthcareNo Panel Informationon 12-08-2024 [facility] HealthcareCBC AUTO DIFFon [id number] #0.0 103/ulNormal 0.0-0.1The [facility] - WestComment on above:Performed By: #### CBC #### [facility] [address] [address] [address] Amarilis BarriosBasophils/100 WBC (Bld)0.7 %Normal0.2-2.0The [facility] Comment on above:Performed By: #### CBC #### [facility] [address] [address] [address] Amarilis Colon #0.2 103/ulNormal0.0-0.7The [facility] - WestComment on above: Performed By: #### CBC #### [facility] [address] [address] [address] Amarilis Ferreiraosinophils/100 WBC (Bld)3.6 %Normal0.9-7.0The [facility] Comment on above:Performed By: #### CBC #### [facility] [address] [address] [address] Amarilis Ferreirarythrocyte distribution width (RBC) [Ratio]12.3 %Mmbavx42.0-15.0 The [facility] - WestComment on above:Performed By: #### CBC #### [facility] [address] [address] [address] Amarilis BarriosHematocrit (Bld) [Volume fraction]44.0 %Chkozt40.0-54.0The [facility] - WestComment on above:Performed By: #### CBC #### [facility] [address] [place] [address] Dr. Amarilis BarriosHemoglobin (Bld) [Mass/Vol]14.8 g/sTFgztsu30.0-18.0The [facility] WestComment on above:Performed By: #### CBC #### [facility] [address] [place] [address] Dr. Amarilis Talbert #0.02 10e3/ulNormal0.00-0.03The [facility] WestComment on above:Performed By: #### CBC #### [facility] [address] [place] [address] Dr. Amarilis Talbert %0.4 %Normal0.0-0.5The [facility] on above: Performed By: #### CBC #### [facility] [address] [place] [address] Dr. Amarilis Martinez #2.1 103/ulNormal1.2-3.8The [facility] WestComment on above:Performed By: #### CBC #### [facility] [address] [place] [address] Dr. Amarilis Peñahocytes/100 WBC (Bld)36.8 %Bidwsx65.5-60.0The [facility] WestComharper university hospital on above:Performed By: #### CBC #### [facility] [address] [place] [address] Dr. Amarilis PearceUAL DIFF REQNONormalThe [facility] - WestComment on above: Performed By: #### CBC #### [facility] [address] [place] [address] Dr. Amarilis Mcpherson (RBC) [Entitic mass]31.4 jiFrumyt86.9-34.0The [facility] WestComment on above:Performed By: #### CBC #### [facility] [address] [place] [address] Dr. Amarilis Mcpherson (RBC) [Mass/Vol]33.6 g/lAHxkctx80.9-35.2The [facility] WestComment on above:Performed By: #### CBC #### [facility] [address] [address] [address] Amarilis McphersonV (RBC) [Entitic vol]93.2 dOTbjsel61.0-94.0The [facility] WestComment on above:Performed By: #### CBC #### [facility] [address] [address] [address] Amarilis Slade #0.4 103/ulNormal0.3-0.8The [facility] WestComment on above:Performed By: #### CBC #### [facility] [address] [place] [address] Dr. Amarilis Irvinocytes/100 WBC (Bld)7.8 %Normal1.7-12.0The [facility] on above:Performed By: #### CBC #### [facility] [address] [place] [address] Dr. Amarilis Wren #2.9 103/ulNormal1.4-6.5The [facility] - WestComment on above:Performed By: #### CBC #### [facility] [address] [place] [address] Dr. Amarilis Tannerutrophils/100 WBC (Bld)50.7 %Fkfxcy20.0-75.0The [facility] WestComment on above:Performed By: #### CBC #### [facility] [address] [place] [address] Dr. Amarilis Millerlet mean volume (Bld) [Entitic vol]9.2 fLCritically low 9.5-13.5The [facility] WestComment on above:Performed By: #### CBC #### [facility] [address] [place] [address] Dr. Amarilis BarriosPLT242 103/otLvadrd288-511Oqq [facility] - WestComment on above: Performed By: #### CBC #### [facility] [address] [place] [address] Dr. Amarilis BarriosRBC4.72 106/ulNormal4.70-6.10The [facility] WestComment on above:Performed By: #### CBC #### [facility] [address] [address] [address] Amarilis BarriosWBC5.6 103/ulNormal4.0-11.0The [facility] on above: Performed By: #### CBC #### [facility] [address] [address] [address] Amarilis BarriosGLYCOHEMOGLOBIN A1Con 81-28-1255JHA RECOMMENDATIONADA THERAPEUTIC TARGET 6.0 - 7.0 ACTION SUGGESTED > 7.0NoChildren's Hospital of ColumbusComment on above:Performed By: #### A1C #### [facility] [address] [address] [address] Amarilis BarriosGlucose [Mass/Vol]131 mg/dLNoChildren's Hospital of ColumbusComment on above:Performed By: #### A1C #### [facility] [address] [place] [address] Dr. Amarilis BarriosHbA1c (Bld) [Mass fraction]6.2 %Critically high<=6.0Chillicothe HospitalComment on above:Performed By: #### A1C #### [facility] [address] [address] [address] Amarilis ZhangID PROFILEon 48-71-1736JAPH-HDL RATIO NORMSEE [facility] Barberton CampusComment on above:Result Comment: 3.3 - 4.4 LOW RISK 4.4 - 7.1 AVERAGE RISK 7.1 - 11.0 MODERATE RISK >11.0 HIGH RISKPerformed By: #### CMP, LIPID, TSH #### [facility] [address] [address] [address] Amarilis BarriosCholesterol [Mass/Vol]247 mg/dLCritically high<=200The [facility] WestComharper university hospital on above:Performed By: #### CMP, LIPID, TSH #### [facility] [address] [address] [address] Amarilis BarriosCholesterol in HDL [Mass/Vol]57 mg/dLBucyrus Community Hospital Comment on above:Performed By: #### CMP, LIPID, TSH #### [facility] [address] [address] [address] Amarilis Aguilaresterol in LDL [Mass/Vol]173.4 mg/dLBucyrus Community HospitalComment on above:Performed By: #### CMP, LIPID, TSH #### [facility] [address] [address] [address] Amarilis Wilson.total/Cholesterol in HDL [Mass ratio]4.3 {ratio} NormalThe [facility] - WestComment on above:Performed By: #### CMP, LIPID, TSH #### [facility] [address] [address] [address] Amarilis Huber NORMAL> or = 60 mg/dl - LOW CARDIOVASCULAR RISK <40 mg/dl - HIGH CARDIOVASCULAR RISKBucyrus Community HospitalComment on above:Performed By: #### CMP, LIPID, TSH #### [facility] [address] [address] [address] Amarilis BarriosLDL CALC NORMALSEE BELOWNoChildren's Hospital of ColumbusComment on above:Result Comment: <100 mg/dl OPTIMAL 100 - 129 mg/dl NEAR OR ABOVE OPTIMAL 130 - 159 mg/dl BORDERLINE HIGH 160 - 189 mg/dl HIGH >190 mg/dl VERY HIGH Performed By: #### CMP, LIPID, TSH #### [facility] [address] [address] [address] Amarilis BarriosTriglyceride [Mass/Vol]83 mg/dLNormal<=150[facility] Comment on above:Performed By: #### CMP, LIPID, TSH #### [facility] [address] [place] [address] Dr. Amarilis BarriosVLDL CALC16.6 mg/dLNoChildren's Hospital of ColumbusComment on above: Performed By: #### CMP, LIPID, TSH #### [facility] [address] [place] [address] Dr. Amarilis BarriosPROKellen 14(COMP METB)on 83-17-3150Zxawqrc [Mass/Vol]3.5 g/dLNormal 3.5-5.0Chillicothe HospitalComment on above:Performed By: #### CMP, LIPID, TSH #### [facility] [address] [address] [address] Amarilis BarriosAlbumin/Globulin [Mass ratio]1.0 {ratio}NormalThe [facility] - WestComment on above:Performed By: #### CMP, LIPID, TSH #### [facility] [address] [address] [address] Amarilis ArshadP [Catalytic activity/Vol]71 U/JGfujjb87-147Dkk [facility] WestComment on above:Performed By: #### CMP, LIPID, TSH #### [facility] [address] [address] [address] Amarilis Torres [Catalytic activity/Vol]22 U/ZPjaxis40-21Axk [facility] WestComment on above:Performed By: #### CMP, LIPID, TSH #### [facility] [address] [address] [address] Amarilis Kenton gap [Moles/Vol]7.4 mmol/LNormalThe [facility] WestComment on above:Performed By: #### CMP, LIPID, TSH #### [facility] [address] [address] [address] Amarilis BarriosAST [Catalytic activity/Vol]17 U/XPcywsn93-53Baf [facility] WestComment on above:Performed By: #### CMP, LIPID, TSH #### [facility] [address] [address] [address] Amarilis BarriosBilirubin [Mass/Vol]0.8 mg/dLNormal0.2-1.3The [facility] Comment on above:Performed By: #### CMP, LIPID, TSH #### [facility] [address] [address] [address] Amarilis BarriosCalcium [Mass/Vol]8.9 mg/dLNormal8.4-10.2The [facility] Comment on above:Performed By: #### CMP, LIPID, TSH #### [facility] [address] [address] [address] Amarilis BarriosChloride [Moles/Vol]106 mmol/HWkckvk60-719Exk [facility] Comment on above:Performed By: #### CMP, LIPID, TSH #### [facility] [address] [address] [address] Amarilis BarriosCO2 [Moles/Vol]30.7 mmol/LCritically high22.0-30.0The [facility] WestComment on above:Performed By: #### CMP, LIPID, TSH #### [facility] [address] [address] [address] Amarilis BarriosCreatinine [Mass/Vol]0.82 mg/dLNormal0.66-1.25The [facility] WestComment on above:Performed By: #### CMP, LIPID, TSH #### [facility] [address] [place] [address] Dr. Amarilis FerreiraGFR-AF FAROESE>60Normal>=60The [facility] WestComment on above:Performed By: #### CMP, LIPID, TSH #### [facility] [address] [address] [address] Amarilis FerreiraGFR-NON AF FAROESE>60Normal>=60The [facility] WestComment on above:Performed By: #### CMP, LIPID, TSH #### [facility] [address] [place] [address] Dr. Amarilis BarriosGlobulin (S) [Mass/Vol]3.6 g/dLNormalThe [facility] WestComment on above:Performed By: #### CMP, LIPID, TSH #### [facility] [address] [address] [address] Amarilis BarriosGlucose [Mass/Vol]107 mg/dLCritically bmdj69-369Sqt [facility] WestComment on above:Performed By: #### CMP, LIPID, TSH #### [facility] [address] [place] [address] Dr. Amarilis BarriosPotassium [Moles/Vol]5.1 mmol/LCritically high3.4-5.0The [facility] WestComment on above:Performed By: #### CMP, LIPID, TSH #### [facility] [address] [place] [address] Dr. Amarilis BarriosProtein [Mass/Vol]7.1 g/dLNormal6.1-8.2The [facility] Comment on above:Performed By: #### CMP, LIPID, TSH #### [facility] [address] [address] [address] Amarilis BarriosSodium [Moles/Vol]139 mmol/EAfimke545-896Etf [facility] Comment on above:Performed By: #### CMP, LIPID, TSH #### [facility] [address] [place] [address] Dr. Amarilis BarriosUrea nitrogen [Mass/Vol]20.0 mg/dLNormal9.0-20.0The [facility] WestComment on above:Performed By: #### CMP, LIPID, TSH #### [facility] [address] [place] [address] Dr. Amarilis Malin nitrogen/Creatinine [Mass ratio]24.4 mg/mgNoChildren's Hospital of ColumbusComment on above:Performed By: #### CMP, LIPID, TSH #### [facility] [address] [place] [address] Dr. Amarilis Vance 54-98-4239FNQ8.691 uIU/mLCritically high0.470-4.680The [facility] WestComment on above:Performed By: #### CMP, LIPID, TSH #### [facility] [address] [place] [address] Dr. Amarilis Bradley [facility] BELOWBucyrus Community HospitalComment on above: Result Comment: <0.34 UIU/ml HYPERTHYROID 0.34-5.60 UIU/ml EUTHYROID >5.60 UIU/ml HYPOTHYROIDPerformed By: #### CMP, LIPID, TSH #### [facility] [address] [place] [address] Dr. Amarilis Barrios Vital Signs Date TimeVital SignValuePerforming WplkobtlfFshewgid95-60-1233 14:41-0400Body knzzac370.88 cmBenjamin Ball DO Work Phone: [facility]10-28-2025 14:41-0400 Body mass index (BMI) [Ratio]27.4 kg/d9Ltqjdsdf Ball DO Work Phone: [phone] [place], [place] 6156810-28-2025 14:41-0400 Body bpueydfgvfl66.2 [degF]Ovidio Ball DO Work Phone: [phone] [place], [place] 6156810-28-2025 14:41-0400 Body kubsju24.79 kgBenjamin Ball DO Work Phone: [phone] [place], [place] 6156810-28-2025 14:41-0400 Diastolic blood jgqhbrza21 mm[Hg]Ovidio Ball DO Work Phone: [phone] [place], [place] 6156810-28-2025 14:41-0400 Heart rate68 /minBenjamin Ball DO Work Phone: [phone] [place], [place] 6156810-28-2025 14:41-0400 SaO2% (BldA) [Mass fraction]98 %Ovidio Ball DO Work Phone: [phone] [place], [place] 6156810-28-2025 14:41-0400 Systolic blood oudkokcs049 mm[Hg]Ovidio Ball DO Work Phone: [phone] [place], [place] 6156809-30-2025 14:40-0400 Body ewlntx104.88 cmBenjamin Ball DO Work Phone: [phone] [place], [place] 6156809-30-2025 14:40-0400 Body mass index (BMI) [Ratio]27.4 kg/f7Bwutmltw Ball DO Work Phone: [phone] [place], [place] 6156809-30-2025 14:40-0400 Body fyyqxg69.79 kgBenjamin Ball DO Work Phone: [phone] [place], [place] 6156809-30-2025 14:40-0400 Diastolic blood esbmnwhx21 mm[Hg]Ovidio Ball DO Work Phone: [phone] [place], [place] 6156809-30-2025 14:40-0400 Heart rate62 /minBenjamin Ball DO Work Phone: [phone] [place] [id number] 14:40-0400 Respiratory rate12 /minBenjamin Ball DO Work Phone: 1([phone])[address] [place], [place] 6156809-30-2025 14:40-0400 Systolic blood jlxcjxte256 mm[Hg]Ovidio Ball DO Work Phone: 1419)[facility] [place], [place] 1725607-28-2025 14:27-0400 Body ajpppq274.88 cmBenjamin Ball DO Work Phone: 1(419)[address] [place], [place] 6156807-28-2025 14:27-0400 Body mass index (BMI) [Ratio]27.1 kg/o0Idxnmwod Ball DO Work Phone: 1(559)[address] [place], [place] 6156807-28-2025 14:27-0400 Body xidxli52.88 kgBenjamin Ball DO Work Phone: 1(068)[address] [place], [place] 6156807-28-2025 14:27-0400 Diastolic blood mm[Hg]Ovidio Ball DO Work Phone: 1(604)[address] [place], [place] 6156807-28-2025 14:27-0400 Heart rate66 /minBenjamin Ball DO Work Phone: 1(256)[facility] [place], [place] 1725607-28-2025 14:27-0400 Respiratory rate12 /minBenjamin Ball DO Work Phone: 1(484)[address] [place], [place] 6156807-28-2025 14:27-0400 Systolic blood atrjhquw078 mm[Hg]Ovidio Ball DO Work Phone: 1(419)[address] [place], [place] 6156807-26-2024 11:38-0400 [facility]udq057.88 [facility] 11:38-0400Body mass index (BMI) [Ratio]27.2 kg/y3HnvybnrnbPe[facility]07-26-2024 11:38-0400Body ielwut32.22 kgPe[facility]07-26-2024 11:38-0400Diastolic blood ihqtoojs89 mm[Hg][facility] 05-02-2024 11:38-0400Heart rate71 /[facility] 05-02-2024 11:38-0400Respiratory rate12 /[facility] 05-02-2024 11:38-0400Systolic blood aschbrlk677 mm[Hg][facility]07-13-2023 10:30-0400Body minfji975.88 cmBemanda Dwyer Other [employer] Other 07-13-2023 10:30-0400Body mass index (BMI) [Ratio] 27.12 kg/s0Nqfemlvjmanda Dwyer Other [employer] Other 07-13-2023 10:30-0400Body .72 kgBemanda Dwyer Other [employer] Other 07-13-2023 10:30-0400Diastolic blood mm[Hg] Ovidio Dwyer Other [employer] Other 07-13-2023 10:30-0400Respiratory rate12 /Petr Dwyer Other [employer] Other 07-13-2023 10:30-0400Systolic blood tbyiifso768 mm[Hg] Ovidio Dwyer Other [employer] Other Encounters Encounter DateEncounter TypeCare ProviderFacilityStart: 08-17-2025 End: 14-04-7762yeukfnupqhIxdbgwuEleni Aguayo MDFacility:TIMUR Sampson Start: 08-04-2025 End: 57-79-1045lmplnwykoiCbfcmmqr Ball DO Work Phone: [facility]: 08-04[facility]2025 End: 97-67-6383Arsmfub encounter procedureBenlive Dwyer DO-[facility] Work Phone: Start: 07-07-2025 End: 96-28-6128tczabzmqhwEltpbwnd Ball DO Work Phone: [facility] Work Phone: Start: 07-07-2025 End: 43-54-9198Zirsrml encounter procedureBenjamin Ball DO-[facility] Work Phone: Start: 05-04-2025 End: 63-73-5252tnbgqnmedtWzzftgev Ball DO Work Phone: [facility] Work Phone: Start: 05-04-2025 End: 04-99-1285Zhfbbvt encounter procedureBenjamin Ball DO-[facility] Work Phone: Start: 78-88-1587Vbsxayg encounter procedureBenjamin Ball DO Work Phone: [facility]: 03-18-2025 End: 83-96-9638Reljwe flowsheetAlison L Radha PA Work Phone: [facility] DERMStart: 03-18-2025 End: 98-68-3843Ymkoyx flowsheetAlison L Radha PA Work Phone: [facility] DERMStart: 03-18-2025 End: 67-86-8914Ngeifpw encounter procedureAlison L Radha PA Work Phone: noms TSR DERMComment on above:Common wart (Primary Dx); PainStart: 03-18-2025 End: 96-33-9878clncxqbhdyKIDBKU L WINANSNot AvailableStart: 02-16-2025 End: 23-39-5540Vwvqtj flowsheetAlison L Radha PA Work Phone: [facility] DERMStart: 02-16-2025 End: 90-98-3875Tmfynj flowsheetAlison L Radha PA Work Phone: [facility] DERMStart: 02-16-2025 End: 92-40-8290Ltmulfy encounter procedureAlison L Radha PA Work Phone: noms TSR DERMComment on above:Common wart (Primary Dx); PainStart: 02-16-2025 End: 48-57-3749kgmdvsaqekUTVMNO L WINANSNot AvailableStart: 01-16-2025 End: 17-99-1949Xxaxix flowsheetAlison L Radha PA Work Phone: [facility] DERMStart: 01-16-2025 End: 04-37-6597Etwsmr flowsheetAlison L Radha PA Work Phone: [facility] DERMStart: 01-16-2025 End: 49-02-1798Apwlbmo encounter procedureAlison L Radha PA Work Phone: noms TSR DERMComment on above:Common wart (Primary Dx); PainStart: 01-16-2025 End: 05-12-7150tcvjjmgvqnBEISIE L WINANSNot AvailableStart: 12-08-2024 End: 16-04-9192Lbigrq outpatient new 30 minutesAlison L Radha PA Work Phone: noms TSR DERMComment on above:Seborrheic keratosis (Primary Dx); Actinic keratosis; Melanocytic nevus of trunk; Dermatofibroma of left lower extremity; Common wart; PainStart: 12-08-2024 End: 61-62-7608elvqecaliaOXIPRP L WINANSNot AvailableStart: 12-08-2024 End: 91-00-7730Znylil flowsheetAlison L Radha PA Work Phone: NOY[facility] TSR DERMStart: 12-08-2024 End: 55-93-4014Agruyc flowsheetAlison L Radha PA Work Phone: [facility] DERMStart: 05-02-2024 End: 89-32-8703fnvuqerxjoPtkrxognyProMedica Memorial Hospital Work Phone: Start: 05-02-2024 End: 04-30-8653Ttmoeac encounter procedureCarolinas [facility] Work Phone: Start: 74-27-7201Voasomd encounter procedureCleveland Clinic [facility]inte Hospitaltart: 06-27-2023 End: 30-96-2673srhortnszcYjbxxjar Ball Other [employer] Other Start: 05-31-3663Txlmywsrj encounterBenjamin BallFPG [facility] ClinicStart: 06-04-2023 End: 19-66-6745lrhzynmqrdFxcvizkq Ball Other [employer] Other Start: 87-00-0448Ivxoisdhu encounterBenjamin BallFPG [facility] ClinicStart: 04-23-2023 End: 39-61-3227okbnrapgmcZyldapto Ball Other [employer] Other Start: 97-13-7230Rarknybwy encounterBenjamin BallFPG [facility] ClinicStart: 04-19-2023 End: 42-70-8282ygvendpdhhHropxrcb Ball Other [employer] Other Start: 79-14-5957Xgliajn encounter procedureBenjamin BallFPG [facility] Medical ClinicStart: 03-03-9111Mfadn health examinationBenjamin Ball Other [employer] Other Start: 15-94-5467Wsrquwkha for general adult medical examination without abnormal findingsDR OVIDIO DWYERUK Healthcaretart: 12-12-2021 End: 70-51-7879nbayzzrlqwTF OVIDIO BALLFacility:C7Lhfqj: 12-12-2021 End: 25-95-4517Rrrbyvnxv for general adult medical examination without abnormal findingsDR OVIDIO BALLFacility:C6Dmeus: 08-03-2021 End: 80-46-4724dibjvkrkdgFGKSFD ROSSFacility:D6Hywsy: 06-16-2021 End: 89-26-4722wnzcqvnanwXECZZ [facility] CLINICSFacility:Y8Sqzho: 12-29-2020 End: 20-17-2135gjiqpbnxisZC OVIDIO DWYERFacility:H1 Procedures DateProcedureProcedure DetailPerforming ClinicianStart: 32-15-1794KNAVOVDDPUN SKIN LESIONAlison [place] Radha AVILES Work Phone: Start: 82-05-2031PHFZNBTFBXP SKIN LESIONAlison L Radha PA Work Phone: Start: 39-77-4700HVITBXLAMJQ SKIN LESIONAlison L Radha PA Work Phone: Start: 12-08-2024 End: 56-16-1520LARHFVQXGJO SKIN LESIONAlison L Radha PA Work Phone: Start: 69-97-1965HGJ screeningDR OVIDIO BALLComment on above:Performed By: #### PSASC #### [facility] [address] [place] [address] Dr. Amarilis BarriosStart: 28-43-2774Grovqou examination of patientBenlive Dwyer Other Start: 18-88-3543Kkvfqrioq for malignant neoplasm of prostateBenjamin Ball Other Depression screeningBenjacrystal Ball Other Screening for malignant neoplasm of prostateBenjamin Ball Other Plan of Treatment DateCare ActivityDetailAuthorStart: 12-09-2025 End: 61-31-1062Rnfkfev encounter /04/2026 1:00 PM EST Office Visit [facility] [address] [place] [address] Marisol Al, STEFAN [address] [place] [address] [facility] DERMStart: 04-15-2025 End: 20-11-4635Dhnkadg encounter xhxxumhno23/09/2025 12:50 PM EDT Office Visit [facility] [address] [place] [address] Marisol Al PA [address] [place] [address] [facility] DERMStart: 03-18-2025 End: 82-99-8160Mkppwep encounter procedureNOMS TSR DERMComment on above:Arrived Start: 02-16-2025 End: 80-66-7903Qojlojl encounter procedureNOMS TSR DERMComment on above:Arrived Start: 01-16-2025 End: 87-18-8918Qbznfau encounter procedureNOMS TSR DERMComment on above:Arrived Start: 12-08-2024 End: 91-38-9745Okefphs encounter aghqlcrwu23/03/2025 2:40 PM EST Office Visit [facility] [address] [place] [address] Marisol Al PA [address] [place] [address] ArrivedNOMS TSR DERMComment on above:ArrivedComprehensive metabolic 1999 panel - Serum or [facility] Comprehensive metabolic 1999 panel - Serum or [facility] HospitalMR Lumbar spine WO [facility] HospitalPatient EducationLow back pain in adultsWhite [facility] Work Phone: XR Lumbar spine 2 or 3 [facility] Immunizations Immunization DateImmunizationNotesCare LbxqgmpjEuaptqpd04-18-0166KHEME-36 Vaccine Moderna - Documentation Purposes OnlyOvidio Dwyer Other [facility]03-24-2021COVID-19 Vaccine Moderna - Documentation Purposes OnlyOvidio Dwyer Other [facility]02-25-2021COVID-19 Vaccine Moderna - Documentation Purposes OnlyOvidio Dwyer Other [facility]09-30-2017diphtheria, tetanus toxoids and acellular pertussis vaccine, unspecified formulation Ovidio Dwyer Other [facility] Payers DatePayer CategoryPayerPolicy [id number] [id number] Health [id number] 2022Medicare [id number] [id number] [id number]-[id number] 2.0.1.412699.3.57[id number] 2..1.683372.3.57[id number] 2.0.1.319114.3.57[id number] 2.0.1.279459.3.57[id number] 2.0.1.094611.3.57[id number] 2.0.1.214709.3.57[id number] 2.840.1.0[id number] 2.840.1.661027.3.579.2.593Unknown [id number] 2.16.840.1.8[id number] 2.16.840.1.719508.19 Social History DateTypeDetailFacilityStart: 12-08-2024 End: 42-81-1156Fxv Assigned At [facility] [employer] Other Start: 30-18-1866Hzt Assigned At Memorial Health SystemTobacco smoking status NHISTobacco smoking consumption unknownNOMS HealthcareStart: 05-49-7163Mck assigned at birthNot on fileJORDAN VALLEY MEDICAL [facility]ENTER HealthcareStart: 34-67-8592Hhjzcso smoking status NHISNever smoked tobaccoNOCO HealthcareStart: 59-37-4601Ohamerk use and exposureSmokeless tobacco non-user [facility] HealthcareStart: 12-08-2024 End: 94-60-1150Nkcklmu of Social functionNOMS HealthcareSexMale (finding) [facility] Clinical Notes 06-16-2021 to 07-07-2025 Note Date & GgpuKmzvUwhiyzsz74-03-9876 Evaluation note* Diagnosis Onset Date Resolution Status Admit Date Low back pain acuteSeptember 2024 2:07pmLumbar spondylosisacuteSeptember 2024 2:07pmLow back painacuteOctober 2024 2:29pmLumbosacral spondylosis with radiculopathyacuteOctober 2024 2:29pm [facility] Work Phone: 1(269) 796-337607-28-2025 Evaluation note* Diagnosis Onset Date Resolution Status Admit Date Hypercholesterolemia acuteJuly 2024 2:03pmHypertensionacuteJuly 2024 2:03pmLumbar spondylosisacuteJuly 2024 2:03pmMedicare annual wellness visit, subsequent acuteJuly 2024 2:03pmOverweightacuteJuly 2024 2:03pmScreening PSA (prostate specific antigen)acuteJuly 2024 2:03pmLow back painacute Amanda 2024 2:07pmLumbar spondylosisacuteSeptember 2024 2:07pm [facility] Work Phone: 1(481) 543-330906-11-2025 History of Present illness Narrative* STEFAN Daniels [...] limited to risks of scarring, darker or respiratory director pigmentary changes, recurrence, incomplete removal and [...] Next Visit: 1 month documented in this encounterJ[facility] Pomqkzswjw18-17-1466 History of Present illness Narrative* STEFAN Daniels [...] limited to risks of scarring, darker or respiratory director pigmentary changes, recurrence, incomplete removal and [...] Next Visit: 1 month documented in this encounterKindred HospitalDiuqccnacb04-64-6094 History of Present illness Narrative* STEFAN Daniels [...] limited to risks of scarring, darker or respiratory director pigmentary changes, recurrence, incomplete removal and [...] Next Visit: 1 month documented in this encounterKindred HospitalOllodlwghh72-90-0449 History of Present illness Narrative* STEFAN Daneils - 12/08/2024 2:40 PM EST Images from [...] limited to risks of scarring, darker or respiratory director pigmentary changes, recurrence, incomplete removal and [...] limited to risks of scarring, darker or respiratory director pigmentary changes, recurrence, incomplete removal and [...] Next Visit: 1 year documented in this encounterKindred HospitalErdsgxlvcw01-65-1012 Evaluation note* Encounter Date Diagnosis Assessment Notes Treatment Notes Treatment Clinical Notes May, Hyperlipidemia type II (ICD-10 - E78.01) [employer] Other 07-13-2023 Evaluation note* Encounter Date Diagnosis [...] He does have a personal hx of [employer] Other 09-09-2021 NotePROCEDURE: XR ANKLE RT MIN [...] Electronically authenticated by: SINGH OLMOS Date: 2021-06-16 12:49[facility]09-09-2021 NotePROCEDURE: XR ANKLE RT MIN 3 [...] Electronically authenticated by: SINGH OLMOS Date: 2021-06-16 12:49[facility] HospitalEvaluation noteNo [facility] [employer] Other Evaluation note* Diagnosis Onset Date Resolution Status Benign prostatic hyperplasia with lower urinary tract symptoms acuteHypercholesterolemiaacuteHypertensionacuteLumbar spondylosisacuteMedicare annual wellness visit, initialacuteOverweightacuteScreening PSA (prostate specific antigen)noneactive [facility] Work Phone: Evaluation note* Diagnosis Seborrheic keratosis- Primary Actinic keratosis Melanocytic nevus of trunk Benign neoplasm of skin of trunk, except scrotum Dermatofibroma of left lower extremity Common wart Other specified viral warts Pain Generalized pain documented in this encounter [facility] HealthcareEvaluation note* Diagnosis Common wart- Primary Other specified viral warts Pain Generalized pain documented in this encounter [facility] HealthcareEvaluation note* Diagnosis Common wart- Primary Other specified viral warts Pain Generalized pain documented in this encounter [facility] HealthcareEvaluation note* Diagnosis Common wart- Primary Other specified viral warts Pain Generalized pain documented in this encounter [facility] HealthcareEvaluation note* Diagnosis Onset Date Resolution Status Admit Date Hypercholesterolemia acuteJuly 2024 2:03pmHypertensionacuteJuly 2024 2:03pmLumbar spondylosisacuteJuly 2024 2:03pmMedicare annual wellness visit, subsequent acuteJuly 2024 2:03pmOverweightacuteJuly 2024 2:03pmScreening PSA (prostate specific antigen)acuteJuly 2024 2:03pm [facility] Work Phone: History general Narrative - Reported* Type Description Date Medical History Benign prostatic hyp erplasia with lower urinary tract symptoms, symptom details unspecified Medical HistoryLumbar spondylosisMedical HistoryEssential (primary) hypertension Medical HistoryHyperlipidemia type IIMedical HistoryContracture, right ankle Medical HistoryCalcaneal spur, rightMedical HistorySensorineural hearing loss (SNHL), unspecified lateralitySurgical HistorySIGMOND FLLRLAZIK7684Ibszqkwm SfckvfjXDLCGGGOWYK9459 2012Surgical TlhimglIOQ3237Gzuyugrfghscosb HistorySEE SURGICAL [employer] Other History general Narrative - Reported* Type Description Date Medical History Benign prostatic hyp erplasia with lower urinary tract symptoms, symptom details unspecified Medical HistoryLumbar spondylosisMedical HistoryEssential (primary) hypertension Medical HistoryHyperlipidemia type IIMedical HistoryContracture, right ankle Medical HistoryCalcaneal spur, rightMedical HistorySensorineural hearing loss (SNHL), unspecified lateralitySurgical HistorySIGMOND BHAGFTOZM4225Nvsdhvfz RaspyrqMGPCJGKFVPU5759 2012Surgical PjgucroYRC5982Igjeqkrp HistoryColonoscopy, repeat 5 yrs05/2023Hospitalization HistorySEE SURGICAL [employer] Other Reason for referral (narrative)* Reason Referral for screeni ng colonoscopy Diagnosis 1 Encounter for screen ing colonoscopy (Z12.11) Referral [facility] Referring Provider First Name Ovidio Referring Provider Last Name Reymundo Referring Provider Specialty Internal Me dicine Referred Organization [facility] Referred Address [address] [place] [address] ,[place], [place],[address] Referred Provider Specialty Gastroentero logy Referral Priority [...] He prefers to be ref erred to [facility] in [place] for his procedure. [employer] Other Reason for referral (narrative)No reason for referral information availableWhite Hospital Work Phone: Summary Purpose Family History [...] section and content) DATE CREATED AUTHOR 12/16/2021 [facility] DATE CREATED AUTHOR AUTHOR'S ORGANIZ ATION 03/21/2025 [facility] DATE CREATED AUTHOR AUTHOR'S ORGANIZ ATION 08/20/2025 [facility] REASON FOR VISIT (unrecogniz ed [...] BE BASED ON THE PRIMARY CLINICAL RECORDS. [employer] [facility]. provides no warranty or guarantee of the accuracy or completeness of information in this document.
--- NOTE | 2025-10-07 10:43 | PM.CN ---
Consult Note: HPI Data of Consult Patient: known to practice within the last 3 years Consult date: 10/07/25 Requesting Physician: Lindy Thakkar NP Primary Care Provider: Ovidio Dwyer DO Consult Narrative Reason for consult: low back pain Narrative: Steven Michelle a 70 year old male with chronic low back pain presents for evaluation. pt recently underwent left l3-4, l4-5 tfesi with significant ongoing relief. notes overall 90% improvement in radicular pain. noting mild pain to left flank with activity. notes pain 3/10 aching to left flank. utilizing tens, heat, stretching, tizanidine, and etodolac prn. notes pain increases with standing, walking, lifting, bending, crossing leg. pain improves with sleep, lying, sitting, and ice. cc:: CC: Lindy Thakkar NP Review of Systems ROS Musculoskeletal Reports: back pain PFSH PFSH Medical History HTN (hypertension) ?I10 - Essential (primary) hypertension (ICD-10) Surgical History History of colon resection ?Z90.49 - Acquired absence of other specified parts of digestive tract (ICD-10) Meds Home Medications and Allergies Home Medications ?Medication ?Instructions ?Recorded ?Confirmed ?Type atorvastatin 40 mg tablet 40 mg PO DAILY 08/18/25 08/24/25 History etodolac 500 mg tablet 500 mg PO Q12H 08/18/25 08/24/25 History lisinopril 5 mg tablet 5 mg PO DAILY 08/18/25 08/24/25 History tizanidine 2 mg tablet 2 mg PO BEDTIME 08/18/25 08/24/25 History Allergies Allergy/AdvReac Type Severity Reaction Status Date / Time No Known Drug Allergies Allergy Verified 08/24/25 08:34 Exam Constitutional Documenting provider has reviewed patient's vital signs: yes Common normals: no apparent distress, oriented x3 and alert General appearance: cooperative HENMT Common normals: normocephalic, hearing grossly normal bilaterally and moist oral mucous membranes Head and scalp: normocephalic Eye Common normals: PERRL Pupil: PERRL Neck & C-Spine Common normals: full ROM General: normal visual inspection Chest Common normals: inspection of chest normal Respiratory Common normals: normal respiratory effort, no retractions and no use of accessory muscles Back & Pelvis Lumbar spine/lower back: lumbar spinal tenderness, paraspinal muscle tenderness and straight leg raise negative bilaterally; ROM not limited and no pain with ROM Sacroiliac joints: SI joints normal Other: strength 5/5 in BLE sensation intact Neuro Common normals: oriented x3 Sensorium/orientation: alert Psych Common normals: mental status grossly normal, thought process normal, cooperative, affect normal, speech normal and activity/motor behavior normal Speech: normal speech Thought process: normal thought process Results Imaging Lumbar MRI: Attestation: I have reviewed the pertinent imaging results. Radiologist's impression: Straightening and mild reversal normal lumbar lordosis. Mkcx-yb-kcrwqrev levocurvature. Slight heterogeneity of the bone marrow signal. Modic type II changes L4-5 and L2-3. Modic type II and minimal height L3 changes at L3-4. Moderate severe disc space disease L4-5 and L2-3. Moderate disc space disease at L1-2 and L3-4 and L5-S1. Multilevel facet arthropathy. The conus medullaris terminates at mid L1 vertebral body. 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 Paraspinal soft tissues unremarkable. T12-L1: Disc desiccation with facet arthropathy. Mild canal and mild neural foraminal narrowing L1-L2: Broad-based disc bulge with minimal endplate spurring extending both foramina zones. Nbdg-iz-acgckibl facet arthropathy and ligamentum flavum hypertrophy. Congenitally short pedicles. Moderate canal and moderate neural foraminal narrowing. L2-L3: Circumferential disc bulge with endplate osteophytosis extending into both foramina zones greatest the right. There is a small right subarticular zone extrusion which extends caudally 8 mm. There is moderate severe central canal stenosis and subarticular recess narrowing. Moderate severe right neural foraminal narrowing encroaching upon the right L2 nerve root. Bilateral subarticular recess narrowing right greater than left encroaching upon the L3 nerve roots. Moderate left frontal narrowing. L3-4: Circumferential disc bulge with endplate osteophytosis and moderate severe facet arthropathy. Severe central canal stenosis and subarticular recess narrowing left greater than right, correlate with bilateral L4 radiculopathy. There is moderate bilateral neural foraminal narrowing. L4-L5: Circumferential disc osteophyte complex with bulky left far lateral disc osteophyte complex noted bilateral facet arthropathy this causes moderate severe central canal and predominantly left-sided subarticular recess narrowing predominantly left-sided. Severe left neural foraminal narrowing correlate with left L4 and L5 radiculopathy. Moderate right subarticular and foraminal narrowing noted. L5-S1: Circumferential disc bulge with endplate osteophytosis and facet arthropathy causing moderate canal and moderate subarticular recess narrowing and moderate neural foraminal narrowing. Additional Findings Additional findings: If on a controlled substance or opioids, I have checked an [place] report on this patient and there are no aberrancies noted in the prescribing history.??If on a controlled substance or opioid a drug screen was completed and reviewed within the last year, and if there has not been a drug screen completed we ordered one today to monitor higher risk, state monitored pain medication use. As part of providing excellent, safe, comprehensive care, the following was completed at our patient's visit: 1. A medication reconciliation and review to ensure accurate knowledge of current/active medications, including asking our patients to inform us about any [id number] medications or herbal remedies/nutritional supplements/alternative remedies. 2. A review to specifically ensure our patients have had annual screening for screening for depression, screening for tobacco use, and screening for unhealthy alcohol use. For concerning screenings had a discussion with the patient, provided patient education, and recommended follow-up with primary care provider when appropriate. If patient noted with a risk of falling, they received education on strength, gait, and balance training to prevent future risk of falling. Portions of this note may have been carried over from the previous visit and updated as appropriate. Please note this office utilizes paper charting in addition to the electronic medical record. A list of current medications, vitals, and PMH is available there as the clinical staff outside of myself do not have access to [employer] charting during the clinic day operations. As part of providing quality comprehensive care the current medications, vitals, and PMH were reviewed in the paper chart. Assessment and Plan Assessment and Plan (1) Lumbar stenosis with neurogenic claudication: (2) Lumbar spondylosis: (3) Myalgia, other site: Plan The patient has had over 3 months of moderate to severe low back and LLE pain with functional impairment and inadequate response to conservative care including NSAIDS (unless there are contraindication such as concurrent blood thinners), multiple oral or topical pain medications, and home exercise program/physical therapy.? Patient has completed >6 weeks of guided home exercise program and/or formal physical therapy program without relief of their symptoms.? The Oswestry Disability Index was completed, and the patient scored a 14%.? Pain significant improved post lumbar FARZANA. no additional recommendations at this time. pt may continue HEP as tolerated. cautioned to avoid heaving lifting and twisting, recommend back brace with strenuous activity. f/u with NS as planned, pending L2-5 laminectomy November 2025 refill tizanidine 2-4mg bid prn pain/spasms MDP discussed and ordered for severe pain flare ups as pt is going to [place] October 2025. pt advised to call ns if he needs to start this MDP for acute severe pain f/u PRN at this time
== END 2025-10-07 10:08 | disposition home or self-care (01) ==
LOC: PM 10:07
PROVIDERS: PCP Internal Medicine; Visit Provider Nurse Practitioner
DX: M48.062 Spinal stenosis, lumbar region with neurogenic claudication (principal); M47.816 Spondylosis without myelopathy or radiculopathy, lumbar region; M79.18 Myalgia, other site
CPT/HCPCS: G0463